=== PATIENT | female | born 1975 | race Caucasian/White ===

== ENCOUNTER → 2017-11-03 00:38 | Outpatient (CLI) | payer OTHER, SELFPAY ==
--- NOTE | 2017-11-03 08:07 | DI.REPORT_ITS ---
SYMPTOM/DIAGNOSIS: ACUTE RIGHT KNEE PAIN, M25.561 MRI RIGHT KNEE: Routine noncontrast examination was performed. There are no priors for comparison. There does appear to be an oblique tear of the posterior horn of the medial meniscus. The lateral meniscus is intact. There is some increased signal seen in the distal anterior cruciate ligament and a partial tear cannot be excluded. The posterior cruciate ligament, lateral collateral ligament, extensor mechanism and medial and lateral retinaculum are intact in addition to the popliteus tendon. There is some fluid seen around the medial collateral ligament suggesting a Grade 1 sprain. The articular cartilage is intact. Marrow signal shows no evidence of an occult fracture or avascular necrosis. There is a small homogeneous round focus in the distal femur. It is homogeneously hyperintense on T-2 and homogeneously hypointense on T2. This may represent a cyst or benign lesion such as an enchondroma cannot be excluded. There is a small amount of fluid in the joint space. No significant popliteal cyst is seen. No soft tissue mass or focal fluid collection is appreciated. IMPRESSION: Tear of the posterior horn of the medial meniscus 2. Question of a partial tear of the anterior cruciate ligament 3. Grade 1 sprain of the MCL.
== END ==
PROVIDERS: PCP Family Medicine; Visit Provider Student in an Organized Health Care Education/Training Program
DX: M25.561 Pain in right knee (principal); S83.241A Other tear of medial meniscus, current injury, right knee, initial encounter; S83.511A Sprain of anterior cruciate ligament of right knee, initial encounter; S83.411A Sprain of medial collateral ligament of right knee, initial encounter
CPT/HCPCS: 73721

== ENCOUNTER 2017-12-23 09:35 | Outpatient (CLI) | payer OTHER, SELFPAY ==
[2017-12-23 12:26] LABS: Abs Immature Grans 0.01 k/cumm (0.0-0.09); Absolute Basophil Count 0.04 k/cumm (0.0-0.2); Absolute Eosinophil Count 0.07 k/cumm (0.0-0.7); Absolute Lymphocyte Count 1.34 k/cumm (1.2-3.4); Absolute Monocyte Count 0.46 k/cumm (0.11-0.7); Absolute Neutrophil Count 2.43 k/cumm (1.2-6.7); Basophils % 0.9; Eosinophils % 1.6; HGB 14.4 g/dL (12.0-15.5); Immature Grans % 0.2; Lymphocytes % 30.8; Mean Corp. HGB Concentration 33.5 g/dL (32.0-36.0); Mean Corpuscular Hemoglobin 32.4 pg (27.0-33.0); Mean Corpuscular Volume 96.6 fL (80-95); Monocytes % 10.6; Neutrophils % 55.9; Platelet Count 275 x1000/uL (130-400); RBC 4.45 m/cumm (4.00-5.20); RBC Distribution Width 12.2 % (11.7-14.6); White Blood Cell Count 4.35 k/cumm (4.4-10.8)
[2017-12-23 14:18] LABS: Iron 94 ug/dL (50-175); Total Iron Binding Capacity 396 ug/dL (250-450); Transferrin Sat 24 % (15-50)
[2017-12-23 14:30] LABS: Ferritin 36 ng/mL (8-388)
== END 2017-12-23 09:55 ==
PROVIDERS: PCP Family Medicine; Visit Provider Internal Medicine Rheumatology
DX: D50.9 Iron deficiency anemia, unspecified (principal)
CPT/HCPCS: 36415; 82728; 83540; 83550; 85025

== ENCOUNTER 2018-01-16 07:45 | Day surgery (SDC) | payer OTHER, SELFPAY ==
[2018-01-16 08:10] VITALS: BP 144/74; PULSE 84; RESP 18; TEMP 37.4; O2SAT 99
[2018-01-16] MEDS: Lactated Ringers 1,000 ML 30 ML IV (08:19)
--- NOTE | 2018-01-16 09:04 | COLE_ITS ---
Date of service: 01/16/18 Time of Service: 09:03 Colonoscopy Report Date of procedure: 01/16/18 Pre-op diagnosis general: Personal history of colon polyps Post-op diagnosis procedure note: other (Normal colon to the cecum) Procedure: Colonoscopy to the cecum Surgeon: Marlon Selby Anesthesia proc note operative: MAC (Harpreet Penn CRNA; ASA 2, Mallampati class II) Estimated blood loss (mL): 0 Pathology: none sent Complications: None Disposition: same day Indications: 43-year-old female presenting for colorectal cancer screening with a personal history of colon polyps. She has been asymptomatic since her last colonoscopy. A sessile serrated adenoma was found on her last colonoscopy was recommended she follow-up in 3 years, but has delayed that until now. The colonoscopy procedure was reviewed with her, and all the risks discussed. All her questions were answered to her satisfaction, and consent was obtained to proceed with colonoscopy. Prep: Miralax/Dulcolax (Prep quality good) Findings: In examining the colon from cecum to anus, no abnormalities were noted Procedure Description: The patient was seen in the day surgery waiting area. Her identification was confirmed, and procedure check. She was then brought to the procedure room. Monitoring for telemetry, blood pressure, oxygen saturation, and end tidal CO2 monitoring were applied. An appropriate time out was performed to confirm, identification, allergies, medication, procedure, was performed. Sedation was titrated for affect by the ADVANCED MANUFACTURING VICE PRESIDENT; Once adequate sedation was achieved, I performed a inspection of the external perineum, and a digitial rectal examination. No significant external abnormalities were noted. On digital rectal examination, there was no blood, no masses, good rectal tone. I advanced the colonoscope from the anus to the cecum under direct visualization. The cecum was identified by the ileal-cecal valve, and the appendiceal orifice. The scope was then withdrawn in circumferential manner from the cecum to the rectum. No abnormalites were noted in the colon. The scope was then withdrawn into the rectum, and retroflexed. No abnormalities were noted of the rectum or anorectal junction. The scope was then withdrawn, terminating the procedure. There were no complications during the procedure, and the patient tolerated the procedure well. She was returned to the day surgery recovery area in good condition. Plan: Will continue with routine screening for colorectal cancer according to current consensus guidelines, which is currently 10 years.
--- NOTE | 2018-01-16 09:52 | PDOC.DSDIS_ITS ---
Discharge Plan Disposition Patient Disposition: HOME Condition: Good Discharge Details Reason For Visit: Personal history of colon polyps Attending Provider: Marlon Selby Primary Care Provider: Ky Hester Home Meds and New Rx's Prescriptions: Continue bisacodyl [Dulcolax (bisacodyl)] 5 mg tablet,delayed release (DR/EC) 10 mg PO BID Qty: 4 RF: 0 polyethylene glycol 3350 [Miralax] 17 gram/dose powder 255 gm PO ONCE Qty: 255 RF: 0 ergocalciferol (vitamin D2) 400 UNIT tablet 2 tab PO PM RF: 0 esomeprazole magnesium [Nexium] 40 MG capsule,delayed release(DR/EC) 1 cap PO DAILY Qty: 90 RF: 4 ergocalciferol (vitamin D2) 50,000 UNIT capsule 1 cap PO QOWK Qty: 6 RF: 4 [id number]-tpivgcenvzwld-rojnuuhh [Excedrin Migraine] 1 EACH tablet 2 tab PO BID PRN RF: 0 folic acid-vit B6-vit B12 [Folbic] 1 EACH tablet 1 tab-cap PO DAILY RF: 0 hydroxychloroquine [Plaquenil] 200 MG tablet 400 mg PO DAILY Qty: 180 RF: 3 bupropion HCl [Wellbutrin XL] 300 MG tablet extended release 24 hr 300 mg PO DAILY Qty: 90 RF: 4 cyanocobalamin (vitamin B-12) 1,000 MCG/1 ML solution 1 ml IM MONTHLY Qty: 3 RF: 4 fexofenadine-pseudoephedrine [Tracey-D 24 Hour] 1 EACH tablet extended release 24 hr 1 tab-cap PO DAILY PRNRF: 0 norethindrone acetate 5 MG tablet 5 mg PO DAILY Qty: 90 RF: 4 colesevelam 625 mg tablet 625 mg PO DAILY Qty: 30 RF: 4 hydrocodone-acetaminophen 5-325 mg tablet 1 tab PO Q6H PRN MDD 8 tabs 30 Days Qty: 50 RF: 0 lisdexamfetamine [Vyvanse] 30 mg capsule 30 mg PO DAILY MDD 30 mg 30 Days Qty: 30 RF: 0 promethazine 25 MG tablet 1 tab PO q 6hr prn RF: 0 duloxetine [Cymbalta] 60 MG capsule,delayed release(DR/EC) 90 cap PO DAILY RF: 0 ondansetron 8 mg Tablet,Disintegrating 8 mg PO PRN PRNRF: 0 magnesium 250 mg Tablet 500 mg PO DAILY RF: 0 Discharge Instructions Instructions: Colonoscopy (DC) Activity:: Activity as Tolerated Diet:: As Tolerated Discharge Orders Discharge Orders: Discharge Order (Routine); Ordered 01/16/18 Ordered By: Marlon Selby DS: Diagnosis Discharge Diagnosis (1) Personal history of colonic polyps: Start date: 01/16/18 Start time: 09:51 Status: Acute Asessment and Plan: Colonoscopy performed: Colonoscopy Report Date of procedure: 01/16/18 Pre-op diagnosis general: Personal history of colon polyps Post-op diagnosis procedure note: other (Normal colon to the cecum) Procedure: Colonoscopy to the cecum Surgeon: Marlon Selby Anesthesia proc note operative: MAC (Harpreet Penn CRNA; ASA 2, Mallampati class II) Estimated blood loss (mL): 0 Pathology: none sent Complications: None Disposition: same day Indications: 43-year-old female presenting for colorectal cancer screening with a personal history of colon polyps. She has been asymptomatic since her last colonoscopy. A sessile serrated adenoma was found on her last colonoscopy was recommended she follow-up in 3 years, but has delayed that until now. The colonoscopy procedure was reviewed with her, and all the risks discussed. All her questions were answered to her satisfaction, and consent was obtained to proceed with colonoscopy. Prep: Miralax/Dulcolax (Prep quality good) Findings: In examining the colon from cecum to anus, no abnormalities were noted Procedure Description: The patient was seen in the day surgery waiting area. Her identification was confirmed, and procedure check. She was then brought to the procedure room. Monitoring for telemetry, blood pressure, oxygen saturation, and end tidal CO2 monitoring were applied. An appropriate time out was performed to confirm, identification, allergies, medication, procedure, was performed. Sedation was titrated for affect by the BRICKLAYER PAVING BRICK; Once adequate sedation was achieved, I performed a inspection of the external perineum, and a digitial rectal examination. No significant external abnormalities were noted. On digital rectal examination, there was no blood, no masses, good rectal tone. I advanced the colonoscope from the anus to the cecum under direct visualization. The cecum was identified by the ileal-cecal valve, and the appendiceal orifice. The scope was then withdrawn in circumferential manner from the cecum to the rectum. No abnormalites were noted in the colon. The scope was then withdrawn into the rectum, and retroflexed. No abnormalities were noted of the rectum or anorectal junction. The scope was then withdrawn, terminating the procedure. There were no complications during the procedure, and the patient tolerated the procedure well. She was returned to the day surgery recovery area in good condition. Plan: Will continue with routine screening for colorectal cancer according to current consensus guidelines, which is currently 10 years.
[2018-01-16 10:15] VITALS: BP 111/71; PULSE 73; RESP 16; TEMP 36.8; O2SAT 98
== END 2018-01-16 10:50 | disposition home or self-care (01) ==
PROVIDERS: PCP Family Medicine; Visit Provider Surgery
PROC: 0DJD8ZZ Inspection of Lower Intestinal Tract, Via Natural or Artificial Opening Endoscopic (ICD-10-PCS; CPT 45378; principal; 2018-01-16 09:30)
DX: Z12.11 Encounter for screening for malignant neoplasm of colon (principal); Z86.010 Personal history of colon polyps
CPT/HCPCS: 45378; 81025; J2250; J3010

== ENCOUNTER 2018-03-20 02:38 | Outpatient (CLI) | payer OTHER, SELFPAY | END 2018-03-20 02:58 | PROVIDERS: PCP Family Medicine; Visit Provider Family Medicine | DX: I48.91 Unspecified atrial fibrillation (principal) | CPT/HCPCS: 93225 ==

== ENCOUNTER 2018-03-23 14:46 | Outpatient (CLI) | payer OTHER, SELFPAY ==
--- NOTE | 2018-03-26 06:42 | HOLTER_ITS ---
Date of Dictation: March 25, 2018 Study Indication: Atrial fibrillation. Requesting Provider: Ky Hester M.D. Findings: The patient was monitored for 2 days and 1 hour. The baseline rhythm was sinus rhythm. Average heart rate 76 bpm, range 67-134 bpm. No PVCs. No ventricular tachycardia. There were 13 PACs. No atrial tachycardias. No pauses >3 seconds. No high-degree heart block. No patient events. Final Interpretation: Normal study.
== END 2018-03-23 15:06 ==
PROVIDERS: PCP Family Medicine; Visit Provider Family Medicine
DX: I48.91 Unspecified atrial fibrillation (principal)
CPT/HCPCS: 93226

== ENCOUNTER 2018-04-23 16:40 | Outpatient (CLI) | payer OTHER, SELFPAY ==
[2018-04-23 19:25] LABS: Vitamin B12 > 2000 pg/mL (193-986)
== END 2018-04-23 17:00 ==
PROVIDERS: PCP Family Medicine; Visit Provider Family Medicine
DX: R20.2 Paresthesia of skin (principal)
CPT/HCPCS: 36415; 82607

== ENCOUNTER 2018-06-12 13:51 | Outpatient (CLI) | payer OTHER, SELFPAY ==
[2018-06-12 15:04] LABS: Abs Immature Grans 0.01 k/cumm (0.0-0.09); Absolute Basophil Count 0.02 k/cumm (0.0-0.2); Absolute Eosinophil Count 0.18 k/cumm (0.0-0.7); Absolute Lymphocyte Count 1.56 k/cumm (1.2-3.4); Absolute Monocyte Count 0.54 k/cumm (0.11-0.7); Absolute Neutrophil Count 3.54 k/cumm (1.2-6.7); Basophils % 0.3; Eosinophils % 3.1; HCT 40.7 % (36.0-46.0); HGB 13.6 g/dL (12.0-15.5); Immature Grans % 0.2; Lymphocytes % 26.7; Mean Corp. HGB Concentration 33.4 g/dL (32.0-36.0); Mean Corpuscular Hemoglobin 31.6 pg (27.0-33.0); Mean Corpuscular Volume 94.7 fL (80-95); Mean Platelet Volume 10.1 fL (8.0-11.0); Monocytes % 9.2; Neutrophils % 60.5; Platelet Count 328 x1000/uL (130-400); RBC Distribution Width 12.5 % (11.7-14.6); White Blood Cell Count 5.85 k/cumm (4.4-10.8)
[2018-06-12 16:14] LABS: Iron 82 ug/dL (50-175); Total Iron Binding Capacity 359 ug/dL (250-450); Transferrin Sat 23 % (15-50)
[2018-06-12 16:40] LABS: ALT 26 U/L (12-78); AST 20 U/L (15-37); Albumin 3.5 g/dL (3.4-5.0); Alkaline Phosphatase 86 U/L (46-116); Anion Gap 12.6 mmol/L (3-11); BUN 11 mg/dL (7-18); Bilirubin, Total 0.3 mg/dL (0.2-1.0); CO2 24.4 mmol/L (21.0-32.0); CREATININE 0.83 mg/dL (0.55-1.02); Calcium 8.5 mg/dL (8.5-10.1); Chloride 103 mmol/L (98-107); Ferritin 40 ng/mL (8-388); Glucose 116 mg/dL (70-100); Potassium 3.5 mmol/L (3.5-5.1); Sodium 140 mmol/L (136-145); Total Protein 7.3 g/dL (6.4-8.2); Vitamin B12 1091 pg/mL (193-986)
[2018-06-15 06:42] LABS: Vitamin D 25 Total 16.6 ng/ml (30-100)
== END 2018-06-12 14:11 ==
PROVIDERS: PCP Family Medicine; Visit Provider Internal Medicine Rheumatology
DX: M32.9 Systemic lupus erythematosus, unspecified (principal); D50.8 Other iron deficiency anemias; E55.9 Vitamin D deficiency, unspecified; E53.9 Vitamin B deficiency, unspecified
CPT/HCPCS: 36415; 80053; 82306; 82607; 82728; 83540; 83550; 85025

== ENCOUNTER 2018-09-02 15:10 | Outpatient (CLI) | payer OTHER, SELFPAY ==
--- NOTE | 2018-09-02 15:45 | DI.RAD_ITS ---
SYMPTOM/DIAGNOSIS: SI JOINT PAIN, CHRONIC, M53.3, SACROCOCCYEAL DISORDER SACROILIAC JOINTS: Multiple images were obtained. There is mild sclerosis around the left sacroiliac joint. No ankylosis is seen. No erosive changes are present. The right sacroiliac joint appears grossly unremarkable without erosion or ankylosis. The bones are intact and normally mineralized. IMPRESSION: Mild sclerosis about the left sacroiliac joint. This may represent sacroiliitis.
== END 2018-09-02 15:30 ==
PROVIDERS: PCP Family Medicine; Visit Provider Family Medicine
DX: G89.29 Other chronic pain (principal); M53.3 Sacrococcygeal disorders, not elsewhere classified
CPT/HCPCS: 72202

== ENCOUNTER 2018-10-14 16:30 | Outpatient (REF) | payer OTHER, SELFPAY ==
--- NOTE | 2018-10-14 14:30 | PAPFT_PTH ---
PATIENT: Ashley Cedeno LOC: [facility] U#:[id number] AGE/SX: 43/F ROOM: RE10/14/[address]: Leslie Ospina MD : [id number] BED: DIS: 10/14/2018 SPEC #: [id number] RECD: 10/14/18 16:51 STATUS: JOSE RELeanna #: [id number] LESLIE: 10/14/18 14:[address]: Leslie Ospina DEPT: [facility] Cytology RECD BY: Ila Mandel ENTERED: 10/14/18 16:52 SP TYPE: PAPFT OTHR DR: Ky Hester MD Tissues: 1 - CX/ENDOCX FOR PAP SMEARS Procedures: PAP THIN PREP/UVM Screening HPV DNA PROBE Comments: [id number]
== END 2018-10-14 16:50 ==
LOC: LBN 16:30
PROVIDERS: PCP Family Medicine; Visit Provider Obstetrics & Gynecology
DX: Z12.4 Encounter for screening for malignant neoplasm of cervix (principal); Z11.51 Encounter for screening for human papillomavirus (HPV)
CPT/HCPCS: 88142; 87624

== ENCOUNTER 2018-10-28 01:07 | Outpatient (CLI) | payer OTHER, SELFPAY ==
--- NOTE | 2018-10-28 11:30 | DI.MAMMO_ITS ---
SYMPTOMS/DIAGNOSIS: SCREENING, Z12.31 MAMMOGRAMS: Mammograms were interpreted according to the usual protocol including computer analysis with CAD system, tomosynthesis and C view imaging. The breast tissue is of moderate radiodensity. There is no demonstrated mass. There are no suspicious calcifications. SUMMARY: No evidence of malignancy, category 1. Yearly screening mammography is recommended. Breast density category B. MQSA ASSESSMENT OF FINDINGS: Negative. Category 1. Patient will receive a letter notifying them of these results. BI-RADS category B. There are scattered areas of fibroglandular density.
== END 2018-10-28 01:27 ==
PROVIDERS: PCP Family Medicine; Visit Provider Obstetrics & Gynecology
DX: Z12.31 Encounter for screening mammogram for malignant neoplasm of breast (principal)
CPT/HCPCS: 77063; 77067

== ENCOUNTER 2018-11-17 13:08 | Emergency (ER) | payer OTHER, SELFPAY ==
[2018-11-17 13:13] VITALS: BP 161/101; PULSE 94; RESP 18; TEMP 37.3; O2SAT 98
[2018-11-17 13:41] LABS: Absolute Basophil Count 0.01 k/cumm (0.0-0.2); Absolute Eosinophil Count 0.06 k/cumm (0.0-0.7); Absolute Monocyte Count 0.35 k/cumm (0.11-0.7); Absolute Neutrophil Count 4.16 k/cumm (1.2-6.7); Basophils % 0.2; HCT 44.8 % (36.0-46.0); HGB 14.6 g/dL (12.0-15.5); Lymphocytes % 20.8; Mean Corp. HGB Concentration 32.6 g/dL (32.0-36.0); Mean Corpuscular Hemoglobin 31.5 pg (27.0-33.0); Mean Corpuscular Volume 96.8 fL (80-95); Mean Platelet Volume 9.7 fL (8.0-11.0); Monocytes % 6.1; Neutrophils % 71.9; Platelet Count 357 x1000/uL (130-400); RBC 4.63 m/cumm (4.00-5.20); RBC Distribution Width 12.3 % (11.7-14.6); White Blood Cell Count 5.78 k/cumm (4.4-10.8)
--- NOTE | 2018-11-17 13:44 | DI.CT_ITS ---
SYMPTOMS/DIAGNOSIS: ABDOMINAL PAIN, RIGHT UPPER QUADRANT ABDOMINAL AND PELVIC CT: CT examination of the abdomen and pelvis was performed with a bolus infusion of 100 cc of Omnipaque 350. Note is made of a 5 mm pleural-based left lower lobe intrapulmonary nodule, unchanged from 06/02/17. Liver and spleen are unremarkable in appearance. Gallbladder has been surgically removed. No biliary dilatation seen. The pancreas appears normal. Adrenals and kidneys are unremarkable in appearance. Abdominal aorta is of normal diameter. No major vascular abnormality seen. No abdominal or pelvic adenopathy. CONSTRUCTION SECRETARY structures appear intact. Appendix is not specifically visualized, but there is no evidence of appendicitis or diverticulitis. No evidence of bowel obstruction. CONCLUSION: No evidence of acute intraabdominal process.
[2018-11-17 13:59] LABS: ALT 25 U/L (12-78); AST 10 U/L (15-37); Albumin 3.6 g/dL (3.4-5.0); Alkaline Phosphatase 73 U/L (46-116); Anion Gap 10.7 mmol/L (3-11); BUN 10 mg/dL (7-18); Bilirubin, Total 0.4 mg/dL (0.2-1.0); CO2 24.3 mmol/L (21.0-32.0); CREATININE 1.03 mg/dL (0.55-1.02); Calcium 8.8 mg/dL (8.5-10.1); Chloride 106 mmol/L (98-107); Estimated GFR 58.48 (mL/min/1.73m2); Glucose 101 mg/dL (70-100); Lipase 108 U/L (73-393); Potassium 3.6 mmol/L (3.5-5.1); Sodium 141 mmol/L (136-145); Total Protein 8.3 g/dL (6.4-8.2)
--- NOTE | 2018-11-17 14:06 | ED.GENADUL_ITS ---
Discharge Plan Disposition Patient Disposition: HOME Discharge Details Chief Complaint: Abd Prob Primary Care Provider: Ky Hester ED Provider: Guicho Graff Home Meds and New Rx's Prescriptions: New dicyclomine 10 mg capsule 10 mg PO TID PRN (Reason: pain) Qty: 10 RF: 0 Continued prednisone 5 mg tablet 5 mg PO DAILY PRNRF: 0 Flovent HFA 110 mcg/actuation HFA aerosol inhaler 2 puff IH BID Qty: 12 RF: 3 hydrocodone-acetaminophen 5-325 mg tablet 1 tab PO Q6H MDD 4 PRN (Reason: pain) Qty: 50 RF: 0 duloxetine 30 mg capsule,delayed release(DR/EC) 30 mg PO DAILY PRNRF: 0 fluconazole [Diflucan] 150 mg tablet 150 mg PO ONCE PRNRF: 0 ergocalciferol (vitamin D2) 400 UNIT tablet 2 tab PO PM RF: 0 ergocalciferol (vitamin D2) 50,000 UNIT capsule 1 cap PO QOWK Qty: 6 RF: 4 Excedrin Migraine 1 EACH tablet 2 tab PO BID PRN RF: 0 Folbic 1 EACH tablet 1 tab-cap PO DAILY RF: 0 hydroxychloroquine [Plaquenil] 200 MG tablet 400 mg PO DAILY Qty: 180 RF: 3 cyanocobalamin (vitamin B-12) 1,000 MCG/1 ML solution 1 ml IM MONTHLY Qty: 3 RF: 4 Tracey-D 24 Hour 1 EACH tablet extended release 24 hr 1 tab-cap PO DAILY PRNRF: 0 bupropion HCl [Wellbutrin XL] 300 mg tablet extended release 24 hr 300 mg PO DAILY Qty: 90 RF: 4 duloxetine [Cymbalta] 60 mg capsule,delayed release(DR/EC) 60 mg PO DAILY Qty: 90 RF: 4 colesevelam 625 mg tablet 625 mg PO DAILY Qty: 90 RF: 4 norethindrone acetate 5 mg tablet 5 mg PO DAILY Qty: 30 RF: 0 esomeprazole magnesium [Nexium] 40 mg capsule,delayed release(DR/EC) 40 mg PO DAILY Qty: 90 RF: 3 lisdexamfetamine 30 mg capsule 30 mg PO DAILY MDD 30 Qty: 30 RF: 0 promethazine 25 MG tablet 1 tab PO q 6hr prn RF: 0 magnesium 250 mg Tablet 400 mg PO DAILY RF: 0 ondansetron 8 mg Tablet,Disintegrating 8 mg PO PRN PRNQty: 8 RF: 0 Discharge Data Discharge Date/Time-TO BE ENTERED AT DEPARTURE: 11/17/18 15:36 Medical Decision Making Patient presenting to the emergency department with chief complaint of right upper quadrant pain. Patient states this been going on last 3 days and she followed up with her primary care provider and he had her come to the emergency department. Patient states previous cholecystectomy. Patient does state some loose stools but otherwise denies any constipation, does state some nausea and only one episode of vomiting. Physical exam shows soft abdomen with tenderness in the epigastrium and right upper quadrant otherwise no tenderness at McBurney's point no roving sign, no CVA tenderness, otherwise unremarkable exam. Plan to check labs, UA and CT imaging due to abdominal pain. Pending results patient given IV fluids, Zofran, and hydromorphone. Review of labs is an unremarkable CBC with no leukocytosis, nondiagnostic CMP and UA. CT imaging reviewed and shows no acute intra-abdominal process. On my review of CT imaging there is questionable increased stool burden on the right side of the abdomen. Patient denies any constipation but I question if this is some of her area of discomfort. CT does not show any evidence of bowel obstruction no. Patient continued to complain of discomfort so was given Toradol and Bentyl. Return precautions were discussed. After discussion of diagnosis and plan of care patient has no further needs, questions, or concerns and states clear understanding to return to the emergency department for any worsening symptoms. HPI General Mode of arrival: ambulatory . Date/Time Provider Initiated Documentation: 11/17/18 13:21 . Limitations to Documentation: no limitations . Information obtained by: patient and RN notes reviewed . History of Present Illness 43 year old F presents to the emergency department with the chief complaint of Right upper quadrant abdominal pain, described as moderate and similar to prior episodes, with intensity rated at 8. Quality is described as sharp, and is localized to the abdomen. Patient started experiencing this week(s) (3) and it has been colicky. No relieving factors improve symptom(s), No exacerbating factors reported . Patient notes no other symptoms.. Patient did receive the following treatments prior to arrival, none Related Data Home Medications Medication Instructions Recorded Confirmed Excedrin Migraine 2 tab PO BID PRN 07/22/12 11/17/18 ergocalciferol (vitamin D2) 1 cap PO QOWK #6 cap 07/22/12 11/17/18 ergocalciferol (vitamin D2) 2 tab PO PM 07/22/12 11/17/18 Folbic 1 tab-cap PO DAILY tab-cap 06/11/13 11/17/18 promethazine 1 tab PO q 6hr prn 07/06/15 11/17/18 hydroxychloroquine [Plaquenil] 400 mg PO DAILY #180 t 10/20/15 11/17/18 cyanocobalamin (vitamin B-12) 1 ml IM MONTHLY #3 vial 07/03/17 11/17/18 Tracey-D 24 Hour 1 tab-cap PO DAILY PRN tab-cap 08/05/17 11/17/18 magnesium 400 mg PO DAILY 01/16/18 11/17/18 bupropion HCl 300 mg 24 hr tablet, 300 mg PO DAILY #90 tab-cap 02/05/18 11/17/18 extended release duloxetine 60 mg capsule,delayed 60 mg PO DAILY #90 cap 05/04/18 11/17/18 release colesevelam 625 mg tablet 625 mg PO DAILY #90 tab 05/14/18 11/17/18 fluticasone propionate 110 2 puff IH BID #12 gm 07/30/18 11/17/18 mcg/actuation HFA aerosol inhaler hydrocodone 5 mg-acetaminophen 325 1 tab PO Q6H PRN #50 tab MDD 4 09/02/18 11/17/18 mg tablet duloxetine 30 mg capsule,delayed 30 mg PO DAILY PRN cap 09/15/18 11/17/18 release fluconazole 150 mg tablet 150 mg PO ONCE PRN tab 09/15/18 11/17/18 prednisone 5 mg tablet 5 mg PO DAILY PRN 09/15/18 11/17/18 norethindrone acetate 5 mg tablet 5 mg PO DAILY #30 tab 10/08/18 11/17/18 esomeprazole magnesium 40 mg 40 mg PO DAILY #90 cap 10/22/18 11/17/18 capsule,delayed release lisdexamfetamine 30 mg capsule 30 mg PO DAILY #30 cap MDD 30 10/30/18 11/17/18 dicyclomine 10 mg PO TID PRN #10 cap 11/17/18 ondansetron 8 mg PO PRN PRN #8 tab 11/17/18 Previous Rx's Medication Instructions Recorded cyanocobalamin (vitamin B-12) 1 ml IM MONTHLY #3 vial 07/03/17 bupropion HCl 300 mg 24 hr tablet, 300 mg PO DAILY #90 tab-cap 02/05/18 extended release duloxetine 60 mg capsule,delayed 60 mg PO DAILY #90 cap 05/04/18 release colesevelam 625 mg tablet 625 mg PO DAILY #90 tab 05/14/18 fluticasone propionate 110 2 puff IH BID #12 gm 07/30/18 mcg/actuation HFA aerosol inhaler hydrocodone 5 mg-acetaminophen 325 1 tab PO Q6H PRN #50 tab MDD 4 09/02/18 mg tablet norethindrone acetate 5 mg tablet 5 mg PO DAILY #30 tab 10/08/18 esomeprazole magnesium 40 mg 40 mg PO DAILY #90 cap 10/22/18 capsule,delayed release lisdexamfetamine 30 mg capsule 30 mg PO DAILY #30 cap MDD 30 10/30/18 dicyclomine 10 mg PO TID PRN #10 cap 11/17/18 ondansetron 8 mg PO PRN PRN #8 tab 11/17/18 Allergies Allergy/AdvReac Type Severity Reaction Status Date / Time Sulfa (Sulfonamide AdvReac Intermediate LUPUS Verified 11/17/18 13:15 Antibiotics) tetracycline AdvReac Mild vomiting Verified 11/17/18 13:15 codeine AdvReac Unknown VOMITING Verified 11/17/18 13:15 Opioids - Morphine Analogues AdvReac Unknown TACHYCARDIA Verified 11/17/18 13:15 General Stated Complaint: Abd Prob TREVA: 3 Review of Systems Constitutional Denies chills, Denies fever(s) and Reports poor appetite Cardiovascular Denies chest pain and Denies dyspnea Respiratory Denies cough and Denies dyspnea Gastrointestinal Reports as per HPI, Reports abdominal pain, Denies melena, Denies change in bowel habits, Denies constipation, Denies diarrhea, Reports nausea and Reports vomiting Genitourinary Denies hematuria and Denies dysuria Integumentary/Breasts Denies rash PFSH Medical History Abnormal colonoscopy (Acute 12/07/10) Arthritis (Chronic) Asthma (Chronic) 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) Depressive disorder (Chronic) Endometriosis determined by laparoscopy History of endometrial biopsy (Resolved) Sessile colonic polyp (Acute 12/07/10) SLE (systemic lupus erythematosus) Surgical History Cholecystectomy (12/11/11) Endometrial Biopsy (06/01/14) H/O colonoscopy (Resolved 01/16/18) History of esophagogastroduodenoscopy (EGD) (Chronic 12/07/10) Status post cholecystectomy (Resolved) Family History FAMILY HX Heart disease Mother Endometriosis Sister Endometriosis Grandmother SLE (systemic lupus erythematosus) Social History Smoking/Tobacco Use Status: Never Alcohol Intake: current Alcohol Intake frequency: a few times a week Drug use: Never Substance use type: does not use Do you feel safe at home: Yes Do you feel safe in your relationship?: Yes Exam Const General: cooperative Orientation: alert, awake and oriented x3 Resp Effort & Inspection: normal respiratory effort and able to speak in complete sentences Auscultation: clear to auscultation bilaterally Cardio Rate: regular rate Rhythm: regular rhythm Heart Sounds: S1 normal and S2 normal GI Palpation: soft, no hepatosplenomegaly, not firm, no guarding, no masses, no pulsatile masses, not rigid, no splenomegaly and tender in the epigastrum and in the RUQ; not at McBurney's point and Rovsing's sign negative Auscultation: normal bowel sounds Back/Spine/Pelvis Back: no CVA tenderness Neuro General: alert, awake, oriented x3, gait normal and moves all extremities Course Vital Signs Temperature 37.3 C 11/17/18 13:13 Pulse 94 H 11/17/18 13:13 Respiratory Rate 18 11/17/18 13:13 Blood Pressure 161/101 H 11/17/18 13:13 Pulse Oximetry 98 11/17/18 13:13 Temperature 37.3 C 11/17/18 13:13 Temperature Source Skin 11/17/18 13:13 Pulse 94 H 11/17/18 13:13 Respiratory Rate 18 11/17/18 13:13 Respiratory Effort Non-Labored 11/17/18 13:20 Blood Pressure 161/101 H 11/17/18 13:13 Pulse Oximetry 98 11/17/18 13:13 Oxygen Delivery Method Room Air 11/17/18 13:13 Oxygen Flow Rate 0 11/17/18 13:13 Pain Level 8 11/17/18 13:21 Lab/Test Results Lab/Test Results: Laboratory Tests Range/Units 11/17/18 13:30 WBC (4.4-10.8) k/cumm 5.78 RBC (4.00-5.20) m/cumm 4.63 Hgb (12.0-15.5) g/dL 14.6 Hct (36.0-46.0) % 44.8 MCV (80-95) fL 96.8 H MCH (27.0-33.0) pg 31.5 MCHC (32.0-36.0) g/dL 32.6 RDW (11.7-14.6) % 12.3 Plt Count (130-400) x1000/uL 357 MPV (8.0-11.0) fL 9.7 Immature Gran % 0.0 Neutrophils % 71.9 Lymphocytes % 20.8 Monocytes % 6.1 Eosinophils % 1.0 Basophils % 0.2 Absolute Neutrophils (1.2-6.7) k/cumm 4.16 Absolute Lymphocytes (1.2-3.4) k/cumm 1.20 Absolute Monocytes (0.11-0.7) k/cumm 0.35 Absolute Eosinophils (0.0-0.7) k/cumm 0.06 Absolute Basophils (0.0-0.2) k/cumm 0.01
[2018-11-17 14:22] LABS: Bilirubin Negative (Negative); Blood Negative (Negative); Clarity Clear (Clear); Glucose Negative (Negative); Ketones Negative (Negative); Leukocyte Esterase Negative (Negative); Nitrite Negative (Negative); Urobilinogen 0.2 EU/dL (Up TO 0.2)
[2018-11-17] MEDS: Normal Saline 1,000 ML 1000 ML IV (14:24)
[2018-11-17] MEDS: Ondansetron 4 MG/2 ML VIAL IVP (14:26)
[2018-11-17] MEDS: HYDROmorphone 2 MG/ML VIAL 0.5 MG IVP (14:28)
[2018-11-17] MEDS: Omnipaque 350 MG/ML 100 ML BTL IJ (14:38)
[2018-11-17] MEDS: Dicyclomine 20 MG TAB (15:21)
[2018-11-17] MEDS: Ketorolac 30 MG/ML VIAL IVP (15:21)
[2018-11-17 15:24] VITALS: BP 123/81; PULSE 78; RESP 15; TEMP 36.6; O2SAT 99
[2018-11-17 15:33] VITALS: BP 123/81; PULSE 78; RESP 15; TEMP 36.6; O2SAT 99
== END 2018-11-17 15:36 | disposition home or self-care (01) ==
PROVIDERS: Emergency Provider Nurse Practitioner Family; PCP Family Medicine
DX: R10.11 Right upper quadrant pain (principal); R11.2 Nausea with vomiting, unspecified; R19.7 Diarrhea, unspecified
CPT/HCPCS: 36415; 80053; 83690; 96361; 96374; 96375; 99285; 74177; 81003; 85025; 99284; J1885; J2405; J3490

== ENCOUNTER 2018-12-07 12:05 | Day surgery (SDC) | payer OTHER, SELFPAY ==
--- NOTE | 2018-12-07 07:21 | ENDO_ITS ---
Date of service: 12/07/18 Time of Service: 15:09 Endoscopy Report DATE OF PROCEDURE: 12/07/18 PRE-OP DIAGNOSIS: RUQ and Epigastric pain POST-OP DIAGNOSIS: other (Gastritis, pyloric ulcers) PROCEDURE: EGD with bx SURGEON: Alicia Klein ANESTHESIA: other (General/ ASA 2/ Alondra Smith, LATRICE) ESTIMATED BLOOD LOSS: 3 PATHOLOGY: other (Pyloric bx, gastric bx, GE junction bx) COMPLICATIONS: None DISPOSITION: same day INDICATIONS: Mrs. Cedeno is a pleasant 43 year old female seen in the office with RUQ and Epigastric pain. She is status post Cholecystectomy. Risks, benefits and complications have been reviewed. Complications include but are not limited to bleeding, pain, perforation, sore throat, aspiration, and adverse reaction to the medications. Questions were entertained and answered to their satisfaction and they wished to proceed. No guarantees were given or implied. FINDINGS: Mild inflammation of the pylorus, and stomach PROCEDURE DESCRIPTION: After informed consent was obtained the patient was take to the procedure room and placed in a supine position. Monitors were applied and a time out was done. The patients name, date of , procedure type, allergies to medications and metal in their body was reviewed. A bite block was placed and the patient was sedated. Once sedated and comfortable the gastroscope was advanced through the oropharynx which was grossly normal into the esophagus. The proximal and mid- esophagus were normal. In the distal esophagus there was no inflammation noted. The scope was advanced into the stomach and through the pylorus into the 3rd portion of the duodenum. The duodenum was noted to be normal. The scope was retracted back into the stomach and biopsies were done to rule out H. pylori. There were 2 small shallow ulcers on the pylorus. The scope was retro-flexed. The cardia and fundus were noted to be normal. There was no hiatal hernia noted. The scope was retracted back into the esophagus and biopsies were done of the GE junction to rule out Baer's. The Z line was regular. The GE junction was at 40 cm. The scope was removed and the patient was woken up and taken back to [facility] in stable condition. Follow up: 2 weeks
--- NOTE | 2018-12-07 07:23 | PDOC.DSDIS_ITS ---
Discharge Plan Disposition Patient Disposition: HOME Condition: Good Discharge Details Reason For Visit: ABDOMINAL PAIN/ NAUSEA/VOMITTING Attending Provider: Alicia Klein Primary Care Provider: Ky Hester Home Meds and New Rx's Prescriptions: New sucralfate 1 gram tablet 1 gm PO QACHS Qty: 56 RF: 0 Continued prednisone 5 mg tablet 5 mg PO DAILY PRNRF: 0 Flovent HFA 110 mcg/actuation HFA aerosol inhaler 2 puff IH BID Qty: 12 RF: 3 duloxetine 30 mg capsule,delayed release(DR/EC) 30 mg PO DAILY PRNRF: 0 fluconazole [Diflucan] 150 mg tablet 150 mg PO ONCE PRNRF: 0 ergocalciferol (vitamin D2) 400 UNIT tablet 1 tab PO PM RF: 0 ergocalciferol (vitamin D2) 50,000 UNIT capsule 1 cap PO .QWEEK Qty: 6 RF: 4 Excedrin Migraine 1 EACH tablet 2 tab PO BID PRN RF: 0 Folbic 1 EACH tablet 1 tab-cap PO DAILY RF: 0 hydroxychloroquine [Plaquenil] 200 MG tablet 400 mg PO DAILY Qty: 180 RF: 3 cyanocobalamin (vitamin B-12) 1,000 MCG/1 ML solution 1 ml IM MONTHLY Qty: 3 RF: 4 Tracey-D 24 Hour 1 EACH tablet extended release 24 hr 1 tab-cap PO DAILY PRNRF: 0 bupropion HCl [Wellbutrin XL] 300 mg tablet extended release 24 hr 300 mg PO DAILY Qty: 90 RF: 4 duloxetine [Cymbalta] 60 mg capsule,delayed release(DR/EC) 60 mg PO DAILY Qty: 90 RF: 4 colesevelam 625 mg tablet 625 mg PO DAILY Qty: 90 RF: 4 norethindrone acetate 5 mg tablet 5 mg PO DAILY Qty: 30 RF: 0 esomeprazole magnesium [Nexium] 40 mg capsule,delayed release(DR/EC) 40 mg PO DAILY Qty: 90 RF: 3 lisdexamfetamine 30 mg capsule 30 mg PO DAILY MDD 30 Qty: 30 RF: 0 ondansetron 8 mg tablet,disintegrating 8 mg PO PRN PRN (Reason: nausea and vomiting) Qty: 8 RF: 0 hydrocodone-acetaminophen 5-325 mg tablet 1 tab PO Q6H MDD 4 PRN (Reason: pain) Qty: 50 RF: 0 promethazine 25 MG tablet 1 tab PO q 6hr prn RF: 0 magnesium 250 mg Tablet 400 mg PO DAILY RF: 0 Discharge Instructions Additional Instructions: Findings: mild gastritis shallow ulcers of pylorus Follow up: 2 weeks Please call if you develop: fevers >101.5 Nausea or Vomiting Abdominal pain that is not transient [facility] POST ENDOSCOPY INSTRUCTIONS 1. Because there will be medication in your system for the next 24 hours, you may feel a little sleepy. Your coordination will be affected. Therefore: a. Do not drive or operate dangerous equipment for 24 hours. b. Do not drink alcohol beverages for 24 hours (not even beer). c. Plan to go home and rest for the day. 2. Generally there are no restrictions on your activity after a day or so has gone by, but you may feel a bit fatigued for a few days. 3 After you arrive home you may have a light meal and return to a normal diet as you can tolerate it without feeling sick to your stomach. 4. After surgery, you may feel pain or discomfort. This should be only transient, but if it persists please contact your doctor. 5. If there are any questions regarding the findings of your procedure, please feel free to contact your doctor. 6. If you are unable to contact your doctor with a problem, contact the hospital at [phone]. 7. Continue all your regular medications unless directed otherwise. I understand the above instructions and have no questions. Signature of Patient or Responsible Adult Escort Date/Time Name of Responsible Adult Escort Signature of Nurse Date/Time Referrals: Alicia Klein MD [ [facility] STAFF PHYSICIAN] - (2 weeks) Activity:: Activity as Tolerated Diet:: As Tolerated Discharge Orders Discharge Orders: Discharge Order (Routine); Ordered 12/07/18 Ordered By: Alicia Klein DS: Diagnosis Discharge Diagnosis (1) History of esophagogastroduodenoscopy (EGD): Status: Chronic
[2018-12-07 12:15] VITALS: BP 125/94; PULSE 81; RESP 16; TEMP 36.4; O2SAT 99
[2018-12-07] MEDS: Lactated Ringers 1,000 ML 80 ML IV (12:40)
--- NOTE | 2018-12-07 15:11 | STOM_PTH ---
PATIENT: Ashley Cedeno LOC: [facility] U#:[id number] AGE/SX: 43/F ROOM: RE12/07/[address]: Alicia Klein MD : 1975 BED: DIS: 12/07/2018 SPEC #: [id number] RECD: 12/07/18 18:13 STATUS: [facility] #: [id number] LESLIE: 12/07/18 15:[address]: Alicia Klein DEPT: Surgical Specimen RECD BY: Ila Mandel ENTERED: 12/07/18 18:15 SP TYPE: STOMACH OTHR DR: Ky Hester MD Tissues: 1 - STOMACH BIOPSY 2 - STOMACH BIOPSY 3 - ESOPHAGUS BIOPSY Procedures: GROSS AND MICRO LEVEL 4 Comments: [id number]
[2018-12-07 15:46] VITALS: BP 122/86; PULSE 80; RESP 17; TEMP 36.4; O2SAT 100
== END 2018-12-07 16:05 | disposition home or self-care (01) ==
LOC: SUR 12:05
PROVIDERS: PCP Family Medicine; Visit Provider Surgery
PROC: 0DJ68ZZ Inspection of Stomach, Via Natural or Artificial Opening Endoscopic (ICD-10-PCS; CPT 43235; principal; 2018-12-07 13:45)
DX: R10.11 Right upper quadrant pain (principal); R10.13 Epigastric pain; K25.9 Gastric ulcer, unspecified as acute or chronic, without hemorrhage or perforation; K21.0 Gastro-esophageal reflux disease with esophagitis; Z86.010 Personal history of colon polyps
CPT/HCPCS: 43239; 88305

== ENCOUNTER 2019-01-05 14:37 | Outpatient (CLI) | payer OTHER, SELFPAY ==
[2019-01-05 15:36] LABS: Abs Immature Grans 0.01 k/cumm (0.0-0.09); Absolute Basophil Count 0.03 k/cumm (0.0-0.2); Absolute Eosinophil Count 0.08 k/cumm (0.0-0.7); Absolute Lymphocyte Count 1.44 k/cumm (1.2-3.4); Absolute Monocyte Count 0.46 k/cumm (0.11-0.7); Absolute Neutrophil Count 3.29 k/cumm (1.2-6.7); Basophils % 0.6; Eosinophils % 1.5; HCT 40.1 % (36.0-46.0); HGB 13.3 g/dL (12.0-15.5); Immature Grans % 0.2; Lymphocytes % 27.1; Mean Corp. HGB Concentration 33.2 g/dL (32.0-36.0); Mean Corpuscular Hemoglobin 31.9 pg (27.0-33.0); Mean Corpuscular Volume 96.2 fL (80-95); Mean Platelet Volume 9.9 fL (8.0-11.0); Monocytes % 8.7; Neutrophils % 61.9; Platelet Count 336 x1000/uL (130-400); RBC 4.17 m/cumm (4.00-5.20); RBC Distribution Width 11.7 % (11.7-14.6); White Blood Cell Count 5.31 k/cumm (4.4-10.8)
[2019-01-05 15:53] LABS: Iron 82 ug/dL (50-175); Total Iron Binding Capacity 374 ug/dL (250-450); Transferrin Sat 22 % (15-50)
[2019-01-05 15:56] LABS: ALT 28 U/L (14-59); AST 17 U/L (15-37); Albumin 3.4 g/dL (3.4-5.0); Alkaline Phosphatase 78 U/L (46-116); BUN 10 mg/dL (7-18); Bilirubin, Total 0.3 mg/dL (0.2-1.0); CREATININE 1.02 mg/dL (0.55-1.02); Calcium 8.4 mg/dL (8.5-10.1); Chloride 104 mmol/L (98-107); Estimated GFR 59.15 (mL/min/1.73m2); Glucose 101 mg/dL (70-100); Potassium 3.5 mmol/L (3.5-5.1); Sodium 141 mmol/L (136-145); Total Protein 7.2 g/dL (6.4-8.2)
[2019-01-05 16:07] LABS: Ferritin 41 ng/mL (8-388)
[2019-01-07 07:23] LABS: Vitamin D 25 Total 26.3 ng/ml (30-100)
== END 2019-01-05 14:57 ==
PROVIDERS: PCP Family Medicine; Visit Provider Internal Medicine Rheumatology
DX: M32.9 Systemic lupus erythematosus, unspecified (principal); E55.9 Vitamin D deficiency, unspecified; D50.9 Iron deficiency anemia, unspecified
CPT/HCPCS: 36415; 80053; 82306; 82728; 83540; 83550; 85025

== ENCOUNTER 2019-01-06 10:13 | Emergency (ER) | payer OTHER, SELFPAY ==
[2019-01-06 10:19] VITALS: BP 153/67; PULSE 111; RESP 16; TEMP 36.5; O2SAT 100
--- NOTE | 2019-01-06 10:31 | W.ED.GENAD ---
Discharge Plan Disposition Patient Disposition: HOME Condition: Good Discharge Details Chief Complaint: Orthopedic Clinical Impression: Foot sprain Primary Care Provider: Ky Hester ED Provider: Jazlyn Martinez Home Meds and New Rx's Prescriptions: No Action prednisone 5 mg tablet 5 mg PO DAILY PRNRF: 0 Flovent HFA 110 mcg/actuation HFA aerosol inhaler 2 puff IH BID Qty: 12 RF: 3 duloxetine 30 mg capsule,delayed release(DR/EC) 30 mg PO DAILY PRNRF: 0 fluconazole [Diflucan] 150 mg tablet 150 mg PO ONCE PRNRF: 0 ergocalciferol (vitamin D2) 400 UNIT tablet 1 tab PO PM RF: 0 ergocalciferol (vitamin D2) 50,000 UNIT capsule 1 cap PO .QWEEK Qty: 6 RF: 4 Excedrin Migraine 1 EACH tablet 2 tab PO BID PRN RF: 0 Folbic 1 EACH tablet 1 tab-cap PO DAILY RF: 0 hydroxychloroquine [Plaquenil] 200 MG tablet 400 mg PO DAILY Qty: 180 RF: 3 cyanocobalamin (vitamin B-12) 1,000 MCG/1 ML solution 1 ml IM MONTHLY Qty: 3 RF: 4 Tracey-D 24 Hour 1 EACH tablet extended release 24 hr 1 tab-cap PO DAILY PRNRF: 0 bupropion HCl [Wellbutrin XL] 300 mg tablet extended release 24 hr 300 mg PO DAILY Qty: 90 RF: 4 duloxetine [Cymbalta] 60 mg capsule,delayed release(DR/EC) 60 mg PO DAILY Qty: 90 RF: 4 colesevelam 625 mg tablet 625 mg PO DAILY Qty: 90 RF: 4 norethindrone acetate 5 mg tablet 5 mg PO DAILY Qty: 30 RF: 0 esomeprazole magnesium [Nexium] 40 mg capsule,delayed release(DR/EC) 40 mg PO DAILY Qty: 90 RF: 3 ondansetron 8 mg tablet,disintegrating 8 mg PO PRN PRN (Reason: nausea and vomiting) Qty: 8 RF: 0 lisdexamfetamine 30 mg capsule 30 mg PO DAILY MDD 30 Qty: 30 RF: 0 hydrocodone-acetaminophen 5-325 mg tablet 1 tab PO Q6H MDD 4 PRN (Reason: pain) Qty: 50 RF: 0 promethazine 25 MG tablet 1 tab PO q 6hr prn RF: 0 magnesium 250 mg Tablet 400 mg PO DAILY RF: 0 sucralfate 1 gram tablet 1 gm PO QACHS Qty: 56 RF: 0 Discharge Instructions Instructions: Foot Sprain (ED) Additional Instructions: Rest. Activities as tolerated. Elevate injury to prevent swelling. Use splinting devices as discussed for one week. Ice to the area of discomfort for 15 min. 3-5 times daily. Motrin every 8 hours with food or Tylenol every 6 hours for soreness if needed over the counter for comfort. Followup with orthopedic doctor as discussed if not improving in one week. Return for any worsening or concerns sooner if needed. Referrals: Junaid Mishra MD [ [facility] STAFF PHYSICIAN] - Medical Decision Making Is a very pleasant 43-year-old woman who tripped and fell down one step outside of her brother's house when leaving last night. Ultimately rolled her ankle and foot. Presents complaining of lateral ankle pain as well as dorsal foot pain specifically the fifth metatarsal. Patient complaining of limping gait and persistent pain with ambulation. X-ray ordered Offered Motrin or Tylenol and declines at this time X-rays ultimately unremarkable. Likely ankle and foot sprain. Rice encouraged. Patient's preference is lace up ankle splint and postoperative shoe. Would prefer to defer crutches. The patient was stable and requested discharge. Prior to discharge, my usual and customary return precautions were reviewed with the patient - this included follow-up instructions and reasons to return to the Emergency Department if conditions worsens, does not improve as expected, or other new concerns arise. HPI General Date/Time Provider Initiated Documentation: 01/06/19 10:15. HPI Narrative: Patient presents for complaints of left foot pain after a fall which occurred yesterday. She fell off a tall front step at her brother's house yesterday. Patient reports rolled her ankle and foot. Patient reports foot and mild ankle pain since that time. No open wounds. Pain with ambulation persistence. No numbness, tingling or weakness. Patient indicates the lateral foot as her prominent site of discomfort. No other sites of pain or concerns. Related Data Home Medications Medication Instructions Recorded Confirmed Excedrin Migraine 2 tab PO BID PRN 07/22/12 01/06/19 ergocalciferol (vitamin D2) 1 cap PO .QWEEK #6 cap 07/22/12 01/06/19 ergocalciferol (vitamin D2) 1 tab PO PM 07/22/12 01/06/19 Folbic 1 tab-cap PO DAILY tab-cap 06/11/13 01/06/19 promethazine 1 tab PO q 6hr prn 07/06/15 01/06/19 hydroxychloroquine [Plaquenil] 400 mg PO DAILY #180 t 10/20/15 01/06/19 cyanocobalamin (vitamin B-12) 1 ml IM MONTHLY #3 vial 07/03/17 01/06/19 Tracey-D 24 Hour 1 tab-cap PO DAILY PRN tab-cap 08/05/17 01/06/19 magnesium 400 mg PO DAILY 01/16/18 01/06/19 bupropion HCl 300 mg 24 hr tablet, 300 mg PO DAILY #90 tab-cap 02/05/18 01/06/19 extended release duloxetine 60 mg capsule,delayed 60 mg PO DAILY #90 cap 05/04/18 01/06/19 release colesevelam 625 mg tablet 625 mg PO DAILY #90 tab 05/14/18 01/06/19 fluticasone propionate 110 2 puff IH BID #12 gm 07/30/18 01/06/19 mcg/actuation HFA aerosol inhaler duloxetine 30 mg capsule,delayed 30 mg PO DAILY PRN cap 09/15/18 01/06/19 release fluconazole 150 mg tablet 150 mg PO ONCE PRN tab 09/15/18 01/06/19 prednisone 5 mg tablet 5 mg PO DAILY PRN 09/15/18 01/06/19 norethindrone acetate 5 mg tablet 5 mg PO DAILY #30 tab 10/08/18 01/06/19 esomeprazole magnesium 40 mg 40 mg PO DAILY #90 cap 10/22/18 01/06/19 capsule,delayed release ondansetron 8 mg disintegrating 8 mg PO PRN PRN #8 tab 11/24/18 01/06/19 tablet lisdexamfetamine 30 mg capsule 30 mg PO DAILY #30 cap MDD 30 12/07/18 01/06/19 sucralfate 1 gm PO QACHS #56 tab 12/07/18 01/06/19 hydrocodone 5 mg-acetaminophen 325 1 tab PO Q6H PRN #50 tab MDD 4 12/22/18 01/06/19 mg tablet Previous Rx's Medication Instructions Recorded cyanocobalamin (vitamin B-12) 1 ml IM MONTHLY #3 vial 07/03/17 bupropion HCl 300 mg 24 hr tablet, 300 mg PO DAILY #90 tab-cap 02/05/18 extended release duloxetine 60 mg capsule,delayed 60 mg PO DAILY #90 cap 05/04/18 release colesevelam 625 mg tablet 625 mg PO DAILY #90 tab 05/14/18 fluticasone propionate 110 2 puff IH BID #12 gm 07/30/18 mcg/actuation HFA aerosol inhaler norethindrone acetate 5 mg tablet 5 mg PO DAILY #30 tab 10/08/18 esomeprazole magnesium 40 mg 40 mg PO DAILY #90 cap 10/22/18 capsule,delayed release ondansetron 8 mg disintegrating 8 mg PO PRN PRN #8 tab 11/24/18 tablet lisdexamfetamine 30 mg capsule 30 mg PO DAILY #30 cap MDD 30 12/07/18 sucralfate 1 gm PO QACHS #56 tab 12/07/18 hydrocodone 5 mg-acetaminophen 325 1 tab PO Q6H PRN #50 tab MDD 4 12/22/18 mg tablet Allergies Allergy/AdvReac Type Severity Reaction Status Date / Time Sulfa (Sulfonamide AdvReac Intermediate LUPUS Verified 01/06/19 10:22 Antibiotics) tetracycline AdvReac Mild vomiting Verified 01/06/19 10:22 codeine AdvReac Unknown VOMITING Verified 01/06/19 10:22 Opioids - Morphine Analogues AdvReac Unknown TACHYCARDIA Verified 01/06/19 10:22 General Stated Complaint: Orthopedic TREVA: 4 Review of Systems Review of Systems ROS Unobtainable: All systems reviewed & are unremarkable except as noted in HPI and below ENT Ears, Nose, Mouth, and Throat: Denies neck pain Musculoskeletal Musculoskeletal: Reports abnormal gait, Denies back pain and Denies neck pain Integumentary/Breasts Skin/Breast: Denies wounds Neurologic Neurologic: Reports abnormal gait [facility] Medical History Abnormal colonoscopy (Acute 12/07/10) sessile serrated adenoma Arthritis (Chronic) Asthma (Chronic) 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) Depressive disorder (Chronic) Endometriosis determined by laparoscopy History of endometrial biopsy (Resolved) Sessile colonic polyp (Acute 12/07/10) Dr Selby SLE (systemic lupus erythematosus) Surgical History Cholecystectomy (12/11/11) Endometrial Biopsy (06/01/14) H/O colonoscopy (Resolved 01/16/18) 01/16/18 Dr Selby, neg/no biopsies, repeat in 5 years due to family history of colorectal cancer. History of arthroscopic knee surgery (Chronic) History of esophagogastroduodenoscopy (EGD) (Chronic 12/07/18) Dr Selby, biopsies with no specific pathological features Status post cholecystectomy (Resolved) Family History FAMILY HX Heart disease Mother Endometriosis hyst at 26 Sister Endometriosis diagnosed by and sxs Grandmother SLE (systemic lupus erythematosus) unknown age, but had renal dz Social History Smoking/Tobacco Use Status: Never Alcohol Intake: current Alcohol Intake frequency: a few times a week Drug use: Never Substance use type: does not use Do you feel safe at home: Yes Do you feel safe in your relationship?: Yes Exam Narrative Exam Narrative: CONST: Healthy appearing patient, in no acute distress. Well hydrated. Alert and alert. HENMT: Head nomocephalic, normal to inspection. Atraumatic. Hearing grossly normal. MUSCULOSKELETAL: FROM of all extremities. No knee pain with palpation motion pain with palpation or calf pain with palpation. No Achilles tenderness noted. Achilles tendon intact. Mild lateral malleolus tenderness with palpation. Dorsal foot pain with palpation along the fifth metatarsal. No open wounds. Pulses intact. Sensation intact distal. Flexion extension intact at the ankle. SKIN: Normal. Dry. No rashes. NEURO: Alert and awake. Speech clear. PSYCH: Normal affect. Cooperative. Course Vital Signs Vital signs: Vital Signs Temperature 36.5 C 01/06/19 10:19 Pulse 111 H 01/06/19 10:19 Respiratory Rate 16 01/06/19 10:19 Blood Pressure 153/67 H 01/06/19 10:19 Pulse Oximetry 100 01/06/19 10:19 Temperature 36.5 C 01/06/19 10:19 Temperature Source Skin 01/06/19 10:19 Pulse 111 H 01/06/19 10:19 Respiratory Rate 16 01/06/19 10:19 Respiratory Effort Non-Labored 01/06/19 10:19 Blood Pressure 153/67 H 01/06/19 10:19 Blood Pressure Position Sitting 01/06/19 10:19 Pulse Oximetry 100 01/06/19 10:19 Oxygen Delivery Method Room Air 01/06/19 10:19 Oxygen Flow Rate 0 01/06/19 10:19 Pain Level 9 01/06/19 10:19
--- NOTE | 2019-01-06 10:35 | DI.RAD_ITS ---
EXAM: XR FOOT RT COMPLETE INDICATION: injury lateral foot pain. COMPARISON: LEFT FOOT COMPLETE from 10/23/2010 TECHNIQUE: 2D digital imaging was performed. FINDINGS: There is no evidence of a fracture or dislocation. The bony structures and joint spaces are well main tained. Note is made of a tiny calcaneal spur.
--- NOTE | 2019-01-06 10:35 | DI.RAD_ITS ---
EXAM: XR ANKLE RT COMPLETE INDICATION: injury lateral malleolus. COMPARISON: LEFT ANKLE COMPLETE from 10/23/2010 TECHNIQUE: 2D digital imaging was performed. FINDINGS: The bony structures are normally mineralized. The mortise joint is intact. There is no evidence of a fracture or dislocation.
== END 2019-01-06 12:45 | disposition home or self-care (01) ==
PROVIDERS: Emergency Provider Physician Assistant; PCP Family Medicine
DX: S93.602A Unspecified sprain of left foot, initial encounter (principal); W01.0XXA Fall on same level from slipping, tripping and stumbling without subsequent striking against object, initial encounter
CPT/HCPCS: 29515; 99284; 73610; 73630; 99282; L1902

== ENCOUNTER 2019-04-28 09:47 | Outpatient (CLI) | payer OTHER, SELFPAY ==
[2019-04-28 10:44] LABS: Abs Immature Grans 0.01 k/cumm (0.0-0.09); Absolute Basophil Count 0.03 k/cumm (0.0-0.2); Absolute Eosinophil Count 0.08 k/cumm (0.0-0.7); Absolute Lymphocyte Count 0.96 k/cumm (1.2-3.4); Absolute Monocyte Count 0.42 k/cumm (0.11-0.7); Basophils % 0.6; Eosinophils % 1.7; HCT 41.4 % (36.0-46.0); HGB 13.6 g/dL (12.0-15.5); Immature Grans % 0.2 %; Mean Corp. HGB Concentration 32.9 g/dL (32.0-36.0); Mean Corpuscular Hemoglobin 31.4 pg (27.0-33.0); Mean Corpuscular Volume 95.6 fL (80-95); Mean Platelet Volume 9.7 fL (8.0-11.0); Monocytes % 8.8; Neutrophils % 68.7; Platelet Count 372 x1000/uL (130-400); RBC 4.33 m/cumm (4.00-5.20); RBC Distribution Width 11.9 % (11.7-14.6)
[2019-04-28 11:16] LABS: Iron 113 ug/dL (50-170); Total Iron Binding Capacity 357 ug/dL (250-450); Transferrin Sat 32 % (15-50)
[2019-04-28 11:24] LABS: Ferritin 33 ng/mL (8-252)
== END 2019-04-28 10:07 ==
PROVIDERS: PCP Family Medicine; Visit Provider Internal Medicine Rheumatology
DX: M32.9 Systemic lupus erythematosus, unspecified (principal); D50.9 Iron deficiency anemia, unspecified; E55.9 Vitamin D deficiency, unspecified
CPT/HCPCS: 36415; 82728; 83540; 83550; 85025

== ENCOUNTER 2019-08-27 15:59 | Outpatient (CLI) | payer MEDICAID, SELFPAY ==
[2019-08-27 16:20] LABS: HGB 14.6 g/dL (12.0-15.5); Mean Corp. HGB Concentration 33.2 g/dL (32.0-36.0); Mean Corpuscular Hemoglobin 31.4 pg (27.0-33.0); Mean Corpuscular Volume 94.6 fL (80-95); Mean Platelet Volume 10.1 fL (8.0-11.0); Platelet Count 323 x1000/uL (130-400); RBC 4.65 m/cumm (4.00-5.20); White Blood Cell Count 6.84 k/cumm (4.4-10.8)
[2019-08-27 17:24] LABS: Iron 90 ug/dL (50-170); Total Iron Binding Capacity 414 ug/dL (250-450); Transferrin Sat 22 % (15-50)
[2019-08-27 17:36] LABS: Ferritin 40 ng/mL (8-252)
[2019-08-27 20:03] LABS: ALT 66 U/L (14-59); AST 42 U/L (15-37); Albumin 3.8 g/dL (3.4-5.0); Alkaline Phosphatase 85 U/L (46-116); Anion Gap 12.5 mmol/L (3-11); BUN 14 mg/dL (7-18); Bilirubin, Total 0.4 mg/dL (0.2-1.0); CO2 23.5 mmol/L (21.0-32.0); Chloride 102 mmol/L (98-107); Glucose 79 mg/dL (74-106); Potassium 3.8 mmol/L (3.5-5.1); Sodium 138 mmol/L (136-145); Total Protein 7.3 g/dL (6.4-8.2)
== END 2019-08-27 16:19 ==
PROVIDERS: Internal Medicine Rheumatology; PCP Family Medicine; Visit Provider Family Medicine
DX: D64.9 Anemia, unspecified (principal); R06.02 Shortness of breath; M32.9 Systemic lupus erythematosus, unspecified; D50.9 Iron deficiency anemia, unspecified
CPT/HCPCS: 36415; 80053; 85027; 82728; 83540; 83550

== ENCOUNTER 2019-11-17 13:48 | Outpatient (REF) | payer MEDICAID, SELFPAY | END 2019-11-17 14:08 | LOC: LBN 13:48 | PROVIDERS: PCP Nurse Practitioner Family; Visit Provider Family Medicine | DX: R35.0 Frequency of micturition (principal) | CPT/HCPCS: 87077; 87086; 87186 ==

== ENCOUNTER 2020-01-11 16:41 | Outpatient (REF) | payer MEDICAID, SELFPAY | END 2020-01-11 17:01 | LOC: LBN 16:41 | PROVIDERS: PCP Nurse Practitioner Family; Visit Provider Family Medicine | DX: N39.0 Urinary tract infection, site not specified (principal) | CPT/HCPCS: 87077; 87086; 87186 ==

== ENCOUNTER 2020-02-21 20:43 | Outpatient (REF) | payer MEDICAID, SELFPAY ==
[2020-02-21 22:18] LABS: Bilirubin Negative (Negative); Blood Trace-intact (Negative); Clarity Sl Cloudy (Clear); Glucose Negative (Negative); Ketones Negative (Negative); Leukocyte Esterase Small (Negative); Nitrite Positive (Negative); Urobilinogen 0.2 EU/dL (Up TO 0.2)
[2020-02-21 22:29] LABS: Bacteria Many HPF (Negative); Epithelial Cells Rare HPF (Negative); WBC 20-50 HPF (0-5)
[2020-02-21 22:30] LABS: C & S Indicated? C&S Done As Ordered; Casts Negative LPF (Negative); Crystals Negative HPF (Negative); Mucus Negative (Negative)
== END 2020-02-21 21:03 ==
LOC: LBN 20:43
PROVIDERS: PCP Family Medicine; Visit Provider Nurse Practitioner Family
DX: N39.0 Urinary tract infection, site not specified (principal)
CPT/HCPCS: 87077; 81003; 81015; 87086; 87186

== ENCOUNTER 2020-03-01 11:31 | Outpatient (CLI) | payer MEDICAID, SELFPAY ==
[2020-03-01 12:35] LABS: Hemoglobin A1C 5.2 % (<5.7)
[2020-03-01 13:10] LABS: Calculated LDL 126 mg/dL (<100); Cholesterol 205 mg/dL (<200); HDL Cholesterol 62 mg/dL (40-60); TSH 1.09 uIU/mL (0.36-3.74); Triglyceride 87 mg/dL (<150); Vitamin B12 421 pg/mL (193-986)
[2020-03-01 13:40] LABS: FREE T4 1.01 ng/dL (0.76-1.46)
[2020-03-01 16:02] LABS: Abs Immature Grans 0.01 10^3/uL (0.0-0.06); Absolute Basophil Count 0.05 10^3/uL (0.0-0.2); Absolute Eosinophil Count 0.16 10^3/uL (0.0-0.7); Absolute Lymphocyte Count 1.17 10^3/uL (1.2-3.4); Absolute Monocyte Count 0.45 10^3/uL (0.1-0.8); Absolute Neutrophil Count 3.54 10^3/uL (1.2-6.7); Basophils % 0.9; HCT 41.3 % (36.0-46.0); HGB 13.5 g/dL (11.2-15.7); Immature Grans % 0.2; Lymphocytes % 21.7; MCH 30.6 pg (27.0-33.0); MCHC 32.7 % (32.0-36.0); MCV 93.7 fL (80-95); MPV 10.7 fL (8.0-11.0); Monocytes % 8.4; Neutrophils % 65.8; Nucleated RBC 0 %; Platelet Count 332 10^3/uL (130-400); RBC 4.41 10^6/uL (3.93-5.22); RDW 11.8 % (11.7-14.6); RDW-SD 40.8 fL; WBC 5.38 10^3/uL (4.4-10.8)
[2020-03-01 16:16] LABS: Iron 86 ug/dL (50-170); Total Iron Binding Capacity 363 ug/dL (250-450); Transferrin Sat 24 % (15-50)
[2020-03-01 16:30] LABS: Ferritin 48 ng/mL (8-252)
[2020-03-02 04:49] LABS: Vitamin D 25 Total 20.7 ng/ml (30-100)
[2020-03-03 10:28] LABS: ALT 28 U/L (14-59); AST 20 U/L (15-37); Albumin 3.8 g/dL (3.4-5.0); Alkaline Phosphatase 97 U/L (46-116); Anion Gap 11.4 mmol/L (3-11); BUN 14 mg/dL (7-18); Bilirubin, Total 0.3 mg/dL (0.2-1.0); CO2 25.6 mmol/L (21.0-32.0); CREATININE 0.99 mg/dL (0.55-1.02); Chloride 104 mmol/L (98-107); Glucose 87 mg/dL (74-106); Potassium 4.1 mmol/L (3.5-5.1); Sodium 141 mmol/L (136-145); Total Protein 7.1 g/dL (6.4-8.2)
== END 2020-03-01 11:51 ==
PROVIDERS: Nurse Practitioner Family; PCP Family Medicine; Referring Provider Family Medicine; Visit Provider Family Medicine
DX: E55.9 Vitamin D deficiency, unspecified (principal); E53.8 Deficiency of other specified B group vitamins; E66.9 Obesity, unspecified; M32.19 Other organ or system involvement in systemic lupus erythematosus
CPT/HCPCS: 36415; 80053; 80061; 82306; 82607; 82728; 83036; 83540; 83550; 84439; 84443; 85025

== ENCOUNTER 2020-04-07 04:28 | Outpatient (CLI) | payer MEDICAID, SELFPAY ==
--- NOTE | 2020-04-07 12:38 | DI.RAD_ITS ---
EXAM: XR CERVICAL SPINE COMP 4-5V CLINICAL HISTORY: chronic right sided neck pain/occipital headaches,CERVICALAGIA,M54.2. TECHNIQUE: 2D digital imaging was performed. COMPARISON: No exams were available for comparison FINDINGS: BONES: No fracture or destructive lesion. Vertebral bodies are unremarkable. DISKS: Intervertebral disc spaces are maintained. ALIGNMENT: Cervical spinal alignment is within normal limits. The odontoid and atlantoaxial articulat ions are normal. SOFT TISSUE: Normal. The lung apices are clear. IMPRESSION: Unremarkable radiographs of the cervical spine. DATA REPOSITORY: RADIATION DOSE DELIVERED:
== END 2020-04-07 04:48 ==
PROVIDERS: PCP Family Medicine; Visit Provider Nurse Practitioner Family
DX: G89.29 Other chronic pain (principal); M54.2 Cervicalgia; R51.9 Headache, unspecified
CPT/HCPCS: 72050

== ENCOUNTER 2020-04-10 03:11 | Outpatient (CLI) | payer MEDICAID, SELFPAY ==
--- NOTE | 2020-04-25 15:07 | ZIOP_ITS ---
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 ?The patient was in normal sinus rhythm for the majority of the recording with an average heart rate of 85 bpm. ?There were rare PACs and no PVCs. ?There was one episode of supraventricular tachycardia which lasted 3 beats. There were no episodes of ventricular tachycardia. ?There were no episodes of atrial fibrillation, no pauses greater than 3 seconds no evidence of high degree heart block. ?14 patient triggered events were associated with sinus rhythm or sinus tachycardia
== END 2020-04-10 03:31 ==
PROVIDERS: PCP Family Medicine; Visit Provider Internal Medicine Cardiovascular Disease
DX: R00.2 Palpitations (principal); I47.1 Supraventricular tachycardia
CPT/HCPCS: 93246

== ENCOUNTER 2020-05-03 09:42 | Outpatient (REF) | payer MEDICAID, SELFPAY ==
[2020-05-07 17:29] LABS: 2-Hydroxy Ethyl Flurazepam Not Detected ng/mL (Cutoff: 10); 6-monoacetylmorphine Not Detected ng/mL (Cutoff: 25); Alpha-Hydroxy Midazolam Not Detected ng/mL (Cutoff: 10); Alpha-Hydroxy Triazolam Not Detected ng/mL (Cutoff: 10); Alpha-Hydroxyalprazolam Not Detected ng/mL (Cutoff: 10); Alpha-OH-alprazolam Glucuronid Not Detected ng/mL (Cutoff: 50); Alprazolam Not Detected ng/mL (Cutoff: 10); Amphetamines Presumptive Positive ng/mL (Cutoff: 500); Barbiturates Negative ng/mL (Cutoff: 200); Buprenorphine Not Detected ng/mL (Cutoff: 5); Chlordiazepoxide Not Detected ng/mL (Cutoff: 10); Clobazam Not Detected ng/mL (Cutoff: 10); Clonazepam Not Detected ng/mL (Cutoff: 10); Cocaine Negative ng/mL (Cutoff: 150); Codeine Not Detected ng/mL (Cutoff: 25); Comment Normal; Creatinine, U 140.8 mg/dL; Diazepam Not Detected ng/mL (Cutoff: 10); Dihydrocodeine Present ng/mL (Cutoff: 25); EDDP Not Detected ng/mL (Cutoff: 25); Fentanyl Not Detected ng/mL (Cutoff: 2); Flurazepam Not Detected ng/mL (Cutoff: 10); Hydrocodone Present ng/mL (Cutoff: 25); Hydromorphone Not Detected ng/mL (Cutoff: 25); Hydromorphone-3-beta-glucuroni Present ng/mL (Cutoff: 100); Lorazepam Not Detected ng/mL (Cutoff: 10); Lorazepam Glucuronide Not Detected ng/mL (Cutoff: 50); Meperidine Not Detected ng/mL (Cutoff: 25); Methadone Not Detected ng/mL (Cutoff: 25); Midazolam Not Detected ng/mL (Cutoff: 10); Morphine Not Detected ng/mL (Cutoff: 25); N-Desmethylclobazam Not Detected ng/mL (Cutoff: 200); N-desmethyltapentadol Not Detected ng/mL (Cutoff: 50); Naloxone Not Detected ng/mL (Cutoff: 25); Norbuprenorphine Not Detected ng/mL (Cutoff: 5); Norfentanyl Not Detected ng/mL (Cutoff: 2); Norhydrocodone Present ng/mL (Cutoff: 25); Normeperidine Not Detected ng/mL (Cutoff: 25); Noroxycodone Not Detected ng/mL (Cutoff: 25); Noroxymorphone Not Detected ng/mL (Cutoff: 25); O-desmethyltramadol Not Detected ng/mL (Cutoff: 25); Oxazepam Glucuronide Not Detected ng/mL (Cutoff: 50); Phencyclidine Negative ng/mL (Cutoff: 25); Prazepam Not Detected ng/mL (Cutoff: 10); Propoxyphene Not Detected ng/mL (Cutoff: 25); Tapentadol Not Detected ng/mL (Cutoff: 25); Temazepam Not Detected ng/mL (Cutoff: 10); Temazepam Glucuronide Not Detected ng/mL (Cutoff: 50); Tetrahydrocannabinol Negative ng/mL (Cutoff: 50); Tramadol Not Detected ng/mL (Cutoff: 25); Triazolam Not Detected ng/mL (Cutoff: 10); Zolpidem Phenyl-4-Carboxy acid Present ng/mL (Cutoff: 10); pH 5.5
[2020-05-08 08:32] LABS: Amphetamine 9420 ng/mL (Cutoff: 25); Amphetamines Interpretation Positive.; MDA (Ecstasy Metabolite) Negative ng/mL (Cutoff: 25); MDMA (Ecstasy) Negative ng/mL (Cutoff: 25); Methamphetamine Negative ng/mL (Cutoff: 25); Phentermine Negative ng/mL (Cutoff: 25); Pseudoephedrine/Ephedrine Negative ng/mL (Cutoff: 25)
== END 2020-05-03 09:43 | disposition home or self-care (01) ==
LOC: LBN 09:42
PROVIDERS: PCP Family Medicine; Visit Provider Nurse Practitioner Family
DX: Z79.891 Long term (current) use of opiate analgesic (principal)
CPT/HCPCS: 80307; 80324; 80347; 80364

== ENCOUNTER 2020-05-09 08:06 | Outpatient (CLI) | payer MEDICAID, SELFPAY ==
[2020-05-09 08:17] VITALS: BP 138/82; PULSE 96; RESP 17; TEMP 36.7; O2SAT 100
--- NOTE | 2020-05-09 08:56 | DI.RAD_ITS ---
EXAM: XR PAIN CLINIC CERVICAL SP 2V CLINICAL HISTORY: Dx: Cervical Spondylosis TECHNIQUE: 2D and realtime digital imaging was performed. CONTRAST MATERIAL: Refer to procedure report. COMPARISON: No exams were available for comparison FINDINGS: Fluoroscopy was provided for Dr. Jara during the performance of a cervical medial branch block. Ple ase refer to the procedure report for complete details. Fluoro time: 53.5 seconds IMPRESSION:
--- NOTE | 2020-05-09 08:59 | PDOC.PAIN_ITS ---
Pain Clinic Procedure Note Procedure Note Procedure Note: Date of service: May 09, 2020 CERVICAL MEDIAL BRANCH BLOCKS #1 ARLEEN COON has been referred to the [facility] for cervical medial branch blocks. COMMENTS: She was evaluated in our office on 05/03/20. I did review that report. Her pain is worse on the left and that is why we are starting this on the left. I did also review her recent imaging. Dx: Cervical spondylosis without myelopathy Ms. COON was interviewed and the medical record reviewed. There were no medical, pharmacologic, radiographic or other structural contraindications to attempting fluoroscopically guided local anesthetic cervical medial branch blocks. Risks and expected side effects as well as potential benefit of the procedure were reviewed with Ms. COON, and Ms. COON'berenice voiced concerns addressed. The printed consent form was signed and witnessed. Standard time-out procedure was performed. Ms. COONwas placed in the Right lateral decubitus position on the fluoroscopy table and automated blood pressure cuff and pulse oximeter applied. Chlorhexadine preparation of the skin and draping was completed. The skin entry points for approaching the anatomic target points of the segmental medial branc hes of Left C2-C5 were identified with fluoroscopy and marked. Next a 25 gauge spinal needle was placed under fluoroscopic guidance down on to the target point for each respective segmental medial branch. Position was confirmed in A/P and leteral views with 0.25ml of omnipaque 240 injected at each level. At each point 0.3ml 0.5% bupivicaine was injected. Ms. Soriano vital signs were stable throughout the procedure and were as recorded in the docflowsheet by the nursing staff. Follow up plans and appointments were discussed with Ms. COON. was instructed to keep careful note of how the usual pain was modified by these injections. Specifically, the patient was asked to keep a pain diary for the next 24 hours using a numeric pain scale of 0-10 and report these results at the follow-up visit. Post procedure instruction was given as documented in the nursing documentation and having met discharge criteria, Ms. Soriano was discharged from the Pain Management Center. Based on the medial branches blocked today, if they patient has adequate relief and we are able to proceed to radiofrequency ablation, the treatment should result in the denervation of the left C2-C3, C3-C4, and C4-C5 FACET JOINTS. We would expect to denervate a total of 3 facets during the radiofrequency ablation. COMMENTS: She will call back with her 1-4 hour post-procedure pain scores for the left side of her neck. Harpreet Jara DO, MPH Pain Management CC: Panfilo Walter MD
[2020-05-09 09:00] VITALS: BP 126/94; PULSE 84; RESP 16; O2SAT 100
[2020-05-09] MEDS: Bupivacaine 0.5% Pres-Free 10 ML VIAL IJ (09:16)
[2020-05-09] MEDS: Omnipaque 240 MG/ML 50 ML BTL IJ (09:17)
== END 2020-05-09 08:07 | disposition home or self-care (01) ==
LOC: PC 08:06
PROVIDERS: PCP Family Medicine; Visit Provider Preventive Medicine Occupational Medicine
DX: M47.812 Spondylosis without myelopathy or radiculopathy, cervical region (principal)
CPT/HCPCS: 64490; 64491; 64492; 72040; Q9967

== ENCOUNTER 2020-05-26 10:40 | Outpatient (REF) | payer MEDICAID, SELFPAY ==
--- NOTE | 2020-05-26 08:50 | PAPFT_PTH ---
PATIENT: Ashley Cedeno LOC: [facility] U#:[id number] AGE/SX: 44/F ROOM: RE05/26/[address]: FERNY Burgess : 1975 BED: DIS: 05/26/2020 SPEC #: [id number] RECD: 05/26/20 12:55 STATUS: [facility] REL[facility]anna #: [id number] LESLIE: 05/26/20 08:[address]: Rufina Voss DEPT: [facility] Cytology RECD BY: Ila Mandel ENTERED: 05/26/20 12:55 SP TYPE: PAPFT OTHR DR: Panfilo Walter MD Tissues: 1 - CX/ENDOCX FOR PAP SMEARS Procedures: PAP THIN PREP/UVM Screening HPV DNA PROBE Comments: [id number] (CHLAMYDIA/GC)
[2020-05-29 21:03] LABS: Chlamydia Result Negative (Negative); GC Result Negative (Negative)
== END 2020-05-26 10:41 | disposition home or self-care (01) ==
LOC: LBN 10:40
PROVIDERS: PCP Family Medicine; Visit Provider Nurse Practitioner Family
DX: Z11.3 Encounter for screening for infections with a predominantly sexual mode of transmission (principal); Z12.4 Encounter for screening for malignant neoplasm of cervix; Z11.51 Encounter for screening for human papillomavirus (HPV)
CPT/HCPCS: 87491; 87591; 88142; 87624

== ENCOUNTER 2020-05-31 14:19 | Outpatient (CLI) | payer MEDICAID, SELFPAY ==
--- NOTE | 2020-05-31 06:00 | DI.RAD_ITS ---
EXAM: XR PAIN CLINIC CERVICAL SP 2V CLINICAL HISTORY: Dx:Cervical Spondylosis TECHNIQUE: 2D and realtime digital imaging was performed. CONTRAST MATERIAL: Refer to procedure report. COMPARISON: No exams were available for comparison FINDINGS: Fluoroscopy was provided for Dr. Jara during the performance of a cervical medial branch block. Ple ase refer to the procedure report for complete details. Fluoro time: 43.6 seconds IMPRESSION:
[2020-05-31 14:32] VITALS: BP 148/74; PULSE 94; RESP 18; TEMP 36.7; O2SAT 98
--- NOTE | 2020-05-31 15:18 | PDOC.PAIN ---
Pain Clinic Procedure Note Procedure Note Procedure Note: Date of service: May 31, 2020 CERVICAL MEDIAL BRANCH BLOCKS #2 at the left C2-C5 ARLEEN COON has been referred to the [facility] for cervical medial branch blocks. COMMENTS: She did very well with the first CMBB Dx: Cervical spondylosis without myelopathy Patient was interviewed and the medical record reviewed. There were no medical, pharmacologic, radiographic or other structural contraindications to attempting fluoroscopically guided local anesthetic cervical medial branch blocks. Risks and expected side effects as well as potential benefit of the procedure were reviewed and voiced concerns addressed. The printed consent form was signed and witnessed. Standard time-out procedure was performed. Patient was placed in the Right lateral decubitus position on the fluoroscopy table and automated blood pressure cuff and pulse oximeter applied. The skin entry points for approaching the anatomic target points of the segmental medial branches of Left C2-C5 were identified with fluoroscopy and marked. Following thorough Chlorhexadine preparation of the skin and draping and 1% lidocaine infiltration of the skin entry points and subcutaneous tissues, a 25 gauge spinal needle was placed under fluoroscopic guidance down on to the target point for each respective segmental medial branch. Position was confirmed in A/P and leteral views with 0.25ml of omnipaque 240 injected at each level. This revealed appropriate spread and no vascular uptake. At each point 0.3ml 2% Lidocaine was injected. Vital signs were stable throughout the procedure and were as recorded in the docflowsheet by the nursing staff. Follow up plans and appointments were discussed and patient was instructed to keep careful note of how the usual pain was modified by these injections. Specifically, the patient was asked to keep a pain diary for the next 24 hours using a numeric pain scale of 0-10 and report these results at the follow-up visit. Post procedure instruction was given as documented in the nursing documentation and having met discharge criteria, and was discharged from the [facility]. Based on the medial branches blocked today, if they patient has adequate relief and we are able to proceed to radiofrequency ablation, the treatment should result in the denervation of the left C2-C3, C3-C4, and C4-C5 FACET JOINTS3. We would expect to denervate a total of facets during the radiofrequency ablation. COMMENTS: She will call back with her 1-4 hour post-procedure pain scores. Harpreet Jara DO, MPH Pain Management CC: Panfilo Walter MD
[2020-05-31] MEDS: Omnipaque 240 MG/ML 50 ML BTL IJ (15:19)
[2020-05-31] MEDS: Lidocaine 2% Pres-Free 5 ML VIAL IJ (15:28)
[2020-05-31 15:33] VITALS: BP 152/88; PULSE 84; RESP 22; O2SAT 100
== END 2020-05-31 14:20 | disposition home or self-care (01) ==
LOC: PC 14:19
PROVIDERS: PCP Family Medicine; Visit Provider Preventive Medicine Occupational Medicine
DX: M47.812 Spondylosis without myelopathy or radiculopathy, cervical region (principal)
CPT/HCPCS: 64490; 64494; 72040; Q9967

== ENCOUNTER 2020-06-01 03:04 | Outpatient (CLI) | payer MEDICAID, SELFPAY ==
--- NOTE | 2020-06-01 16:27 | DI.MAMMO_ITS ---
EXAM: MG MAMMO SCREENING CLINICAL HISTORY: screening,Z12.39 TECHNIQUE: Bilateral full field digital CC and MLO mammographic images were obtained with 3D tomosyn thesis and utilizing computer aided detection (CAD). COMPARISON: Available for comparison. FINDINGS: Masses/Architectural Distortion: None seen. Microcalcifications: No suspicious pleomorphic-type are seen. Skin Thickening/Nipple Retraction: None. IMPRESSION: 1. No significant interval change with no specific features of malignancy noted. 2. Unless there is more urgent need, screening mammography is recommended, as per [employer] guidelines. BI-RADS Category 1 - Negative Breast Density - Category B - Scattered areas of fibroglandular density Breast density category C or D implies that the patient has dense breast tissue. Dense breast tissue is very common and is not abnormal but dense breast tissue can make it harder to find cancer on a ma mmogram. Also, dense breast tissue may increase their breast cancer risk. This information about the result of the mammogram report was provided to the patient to raise their awareness. Use this report when you speak with the patient about their risks for breast cancer, which includes their family hist ory. At that time, you may recommend for more screening tests (Ultrasound or MRI) as they might be us eful based on their risk. A negative radiographic report should not delay biopsy if a dominant or clinically suspicious mass is present. Up to ten percent of cancers are not identified on mammography. A negative report may reinforce clinical impression. Adenosis and dense breasts may obscure an underlying neoplasm. False positive reports average 6 to 10%. Patient will receive a letter notifying them of these results.
== END 2020-06-01 03:24 ==
PROVIDERS: PCP Family Medicine; Visit Provider Nurse Practitioner Family
DX: Z12.31 Encounter for screening mammogram for malignant neoplasm of breast (principal)
CPT/HCPCS: 77063; 77067

== ENCOUNTER 2020-08-03 11:31 | Outpatient (CLI) | payer MEDICAID, SELFPAY ==
--- NOTE | 2020-08-03 06:00 | DI.RAD_ITS ---
Exam(s) XR PAIN CLINIC CERVICAL SP 2V EXAM: XR PAIN CLINIC CERVICAL SP 2V CLINICAL HISTORY: Dx: Cervical Spondylosis TECHNIQUE: 2D and realtime digital imaging was performed. COMPARISON: No exams were available for comparison FINDINGS: C-arm fluoroscopy was utilized by Dr. Jara during reported cervical radiofrequency ablation. Hard co pies show needle placement at C2-3 C3-4 C4-5 and C5-[address]. [address] Jara its procedure note . IMPRESSION: RADIATION DOSE DELIVERED: angelita Georges=10.8 mGy
[2020-08-03 11:49] VITALS: BP 146/84; PULSE 87; RESP 17; TEMP 36.7; O2SAT 98
[2020-08-03] MEDS: Lactated Ringers 1,000 ML 80 ML IV (12:11)
[2020-08-03] MEDS: fentaNYL 100 MCG/2 ML VIAL IVP ×2 (12:17→12:35)
[2020-08-03] MEDS: Midazolam 2 MG/2 ML VIAL IVP (12:17)
[2020-08-03 12:46] VITALS: BP 143/92; PULSE 78; RESP 18; O2SAT 100
[2020-08-03] MEDS: Dexamethasone Sod. Phos./Pres-Free 10 MG/ML VIAL IJ (12:50)
[2020-08-03] MEDS: Lidocaine 2% Pres-Free 5 ML VIAL IJ (12:51)
[2020-08-03] MEDS: Bupivacaine 0.5% Pres-Free 10 ML VIAL IJ (12:51)
--- NOTE | 2020-08-03 12:53 | PDOC.PAIN ---
Pain Clinic Procedure Note Procedure Note Procedure Note: Cervical Radiofrequency with Coolief Machine PROCEDURE NOTE Date of Service: August 03, 2020 Patient: ARLEEN COON Provider: Harpreet Jara DO, MPH Pre Operative Diagnosis: Cervical spondylosis without myelopathy Post Operative Diagnosis: Same PROCEDURE: 1. Left C2-C3 facet joint radiofrequency denervation 2. Left C3-C4 facet joint radiofrequency denervation 3. Left C4-C5 facet joint radiofrequency denervation ARLEEN COON was brought to the operating room and placed on the exam table in a comfortable prone position. The place for the needle placement was obtained by manual palpation as well as radiographic confirmation. The sterile field was prepped by chlorhexidine and sterile drapes. Local anesthesia, both superficial and deep was provided by local infiltration of 8 ml Lidocaine 1%. Using fluoroscopic guidance, A 17g 50 mm radiofrequency introducer needle with a 2 mm active tip was placed overlying the left C2 cervical vertebra from the lateral approach and was advanced until bony contact was felt with the articular pillar. The needle was walked off the pillar, maintaining contact with the bone. Attempted aspiration revealed no blood or cerebrospinal fluid. Radiographs were then made in AP and lateral. Motor testing was then performed with 2.0 volts and no upper extremity motor stimulation was observed. 1 cc of the 5ml Lidocaine was injected through the RF needle. A radiofrequency lesion of the left medial branch of C2 was then performed at 80 degrees Celsius for 2 minutes and 30 seconds. The same procedure was repeated for LEFT C3, C4 and C5 medial branches. POST PROCEDURE EVALUATION: Follow up plans and appointments were discussed with the ARLEEN . Post procedure instruction was given as documented in nursing documentation and having met discharge criteria, ARLEEN was discharged from the [facility]. COMMENTS: No complications. F/U with our office as needed. I personally performed this entire procedure. Harpreet Jara Pain Management Attending Physician
== END 2020-08-03 11:32 | disposition home or self-care (01) ==
LOC: PC 11:31
PROVIDERS: PCP Family Medicine; Visit Provider Preventive Medicine Occupational Medicine
DX: M47.812 Spondylosis without myelopathy or radiculopathy, cervical region (principal)
CPT/HCPCS: 64633; 64634; 72040; J2250; J3010

== ENCOUNTER 2020-08-21 14:58 | Outpatient (REF) | payer MEDICAID, SELFPAY ==
[2020-08-25 10:07] LABS: 2-Hydroxy Ethyl Flurazepam Not Detected ng/mL (Cutoff: 10); 3,4-methylenedioxyamphetamine Not Detected ng/mL (Cutoff: 100); 3,4-methylenedioxyethylampheta Not Detected ng/mL (Cutoff: 100); 3,4-methylenedioxymethamphetam Not Detected ng/mL (Cutoff: 100); 6-monoacetylmorphine Not Detected ng/mL (Cutoff: 25); Alpha-Hydroxy Midazolam Not Detected ng/mL (Cutoff: 10); Alpha-Hydroxy Triazolam Not Detected ng/mL (Cutoff: 10); Alpha-Hydroxyalprazolam Not Detected ng/mL (Cutoff: 10); Alpha-OH-alprazolam Glucuronid Not Detected ng/mL (Cutoff: 50); Alprazolam Not Detected ng/mL (Cutoff: 10); Amphetamine Present ng/mL (Cutoff: 100); Barbiturates Negative ng/mL (Cutoff: 200); Buprenorphine Not Detected ng/mL (Cutoff: 5); Chlordiazepoxide Not Detected ng/mL (Cutoff: 10); Clobazam Not Detected ng/mL (Cutoff: 10); Clonazepam Not Detected ng/mL (Cutoff: 10); Cocaine Negative ng/mL (Cutoff: 150); Codeine Not Detected ng/mL (Cutoff: 25); Comment Normal; Diazepam Not Detected ng/mL (Cutoff: 10); Dihydrocodeine Not Detected ng/mL (Cutoff: 25); EDDP Not Detected ng/mL (Cutoff: 25); Ephedrine Not Detected ng/mL (Cutoff: 100); Fentanyl Not Detected ng/mL (Cutoff: 2); Flurazepam Not Detected ng/mL (Cutoff: 10); Hydrocodone Not Detected ng/mL (Cutoff: 25); Hydromorphone Not Detected ng/mL (Cutoff: 25); Hydromorphone-3-beta-glucuroni Not Detected ng/mL (Cutoff: 100); Lorazepam Not Detected ng/mL (Cutoff: 10); Lorazepam Glucuronide Not Detected ng/mL (Cutoff: 50); Meperidine Not Detected ng/mL (Cutoff: 25); Methadone Not Detected ng/mL (Cutoff: 25); Methamphetamine Not Detected ng/mL (Cutoff: 100); Methylphenidate Not Detected ng/mL (Cutoff: 20); Midazolam Not Detected ng/mL (Cutoff: 10); Morphine Not Detected ng/mL (Cutoff: 25); N-Desmethylclobazam Not Detected ng/mL (Cutoff: 200); N-desmethyltapentadol Not Detected ng/mL (Cutoff: 50); Naloxone Not Detected ng/mL (Cutoff: 25); Norbuprenorphine Not Detected ng/mL (Cutoff: 5); Norfentanyl Not Detected ng/mL (Cutoff: 2); Norhydrocodone Not Detected ng/mL (Cutoff: 25); Normeperidine Not Detected ng/mL (Cutoff: 25); Noroxycodone Not Detected ng/mL (Cutoff: 25); Noroxymorphone Not Detected ng/mL (Cutoff: 25); O-desmethyltramadol Not Detected ng/mL (Cutoff: 25); Oxazepam Glucuronide Not Detected ng/mL (Cutoff: 50); Phencyclidine (PCP) Not Detected ng/mL (Cutoff: 20); Phentermine Not Detected ng/mL (Cutoff: 100); Prazepam Not Detected ng/mL (Cutoff: 10); Propoxyphene Not Detected ng/mL (Cutoff: 25); Pseudoephedrine Not Detected ng/mL (Cutoff: 100); Ritalinic Acid Not Detected ng/mL (Cutoff: 100); Specific Gravity 1.016; Tapentadol Not Detected ng/mL (Cutoff: 25); Temazepam Not Detected ng/mL (Cutoff: 10); Temazepam Glucuronide Not Detected ng/mL (Cutoff: 50); Tetrahydrocannabinol Negative ng/mL (Cutoff: 50); Tramadol Not Detected ng/mL (Cutoff: 25); Triazolam Not Detected ng/mL (Cutoff: 10); Zolpidem Phenyl-4-Carboxy acid Present ng/mL (Cutoff: 10); pH 5.7
== END 2020-08-21 14:59 | disposition home or self-care (01) ==
LOC: LBN 14:58
PROVIDERS: PCP Family Medicine; Visit Provider Nurse Practitioner Family
DX: M47.812 Spondylosis without myelopathy or radiculopathy, cervical region (principal); Z79.891 Long term (current) use of opiate analgesic; M54.2 Cervicalgia
CPT/HCPCS: 80307; 80347; 80364

== ENCOUNTER 2020-09-01 03:04 | Outpatient (CLI) | payer MEDICAID, SELFPAY ==
[2020-09-01 14:58] LABS: Abs Immature Grans 0.02 10^3/uL (0.0-0.06); Absolute Basophil Count 0.03 10^3/uL (0.0-0.2); Absolute Eosinophil Count 0.07 10^3/uL (0.0-0.7); Absolute Lymphocyte Count 1.38 10^3/uL (1.2-3.4); Absolute Monocyte Count 0.64 10^3/uL (0.1-0.8); Basophils % 0.5; Eosinophils % 1.1; HCT 39.1 % (36.0-46.0); Immature Grans % 0.3; Lymphocytes % 20.8; MCHC 33.2 % (32.0-36.0); MCV 93.3 fL (80-95); MPV 9.4 fL (8.0-11.0); Monocytes % 9.6; Neutrophils % 67.7; Nucleated RBC 0 %; Platelet Count 380 10^3/uL (130-400); RBC 4.19 10^6/uL (3.93-5.22); RDW-SD 41.3 fL; WBC 6.64 10^3/uL (4.4-10.8)
[2020-09-01 17:04] LABS: ALT 37 U/L (14-59); AST 23 U/L (15-37); Albumin 3.8 g/dL (3.4-5.0); Alkaline Phosphatase 111 U/L (46-116); Anion Gap 7.6 mmol/L (3-11); BUN 11 mg/dL (7-18); Bilirubin, Total 0.3 mg/dL (0.2-1.0); CO2 30.4 mmol/L (21.0-32.0); Calcium 9.2 mg/dL (8.5-10.1); Chloride 102 mmol/L (98-107); Estimated GFR 59.96 (mL/min/1.73m2); Glucose 106 mg/dL (74-106); Potassium 3.6 mmol/L (3.5-5.1); Sodium 140 mmol/L (136-145); Total Protein 7.2 g/dL (6.4-8.2)
== END 2020-09-01 03:05 | disposition home or self-care (01) ==
LOC: LBO 03:04
PROVIDERS: PCP Family Medicine; Visit Provider Internal Medicine Rheumatology
DX: M32.19 Other organ or system involvement in systemic lupus erythematosus (principal); M79.7 Fibromyalgia; E55.9 Vitamin D deficiency, unspecified
CPT/HCPCS: 36415; 80053; 85025

== ENCOUNTER 2020-10-26 04:27 | Outpatient (CLI) | payer MEDICAID, SELFPAY ==
[2020-10-26 14:30] LABS: Abs Immature Grans 0.01 10^3/uL (0.0-0.06); Absolute Basophil Count 0.05 10^3/uL (0.0-0.2); Absolute Lymphocyte Count 1.25 10^3/uL (1.2-3.4); Absolute Monocyte Count 0.64 10^3/uL (0.1-0.8); Absolute Neutrophil Count 2.46 10^3/uL (1.2-6.7); Basophils % 1.1; Eosinophils % 2.2; HCT 42.8 % (36.0-46.0); HGB 13.7 g/dL (11.2-15.7); Immature Grans % 0.2; Lymphocytes % 27.7; MCH 30.4 pg (27.0-33.0); MCV 94.9 fL (80-95); MPV 9.5 fL (8.0-11.0); Monocytes % 14.2; Neutrophils % 54.6; Nucleated RBC 0 %; Platelet Count 344 10^3/uL (130-400); RBC 4.51 10^6/uL (3.93-5.22); RDW 12.6 % (11.7-14.6); RDW-SD 43.2 fL; WBC 4.51 10^3/uL (4.4-10.8)
[2020-10-26 16:06] LABS: ALT 28 U/L (14-59); AST 15 U/L (15-37); Albumin 3.8 g/dL (3.4-5.0); Alkaline Phosphatase 99 U/L (46-116); Anion Gap 10.5 mmol/L (3-11); BUN 12 mg/dL (7-18); Bilirubin, Total 0.2 mg/dL (0.2-1.0); CO2 27.5 mmol/L (21.0-32.0); Calcium 9.1 mg/dL (8.5-10.1); Chloride 106 mmol/L (98-107); Estimated GFR 59.96 (mL/min/1.73m2); Glucose 98 mg/dL (74-106); Potassium 4.3 mmol/L (3.5-5.1); Sodium 144 mmol/L (136-145); Total Protein 7.3 g/dL (6.4-8.2)
== END 2020-10-26 04:28 | disposition home or self-care (01) ==
LOC: LBO 04:27
PROVIDERS: PCP Family Medicine; Visit Provider Internal Medicine Rheumatology
DX: M32.9 Systemic lupus erythematosus, unspecified (principal); Z79.899 Other long term (current) drug therapy
CPT/HCPCS: 36415; 80053; 85025

== ENCOUNTER 2020-12-06 19:15 | Outpatient (REF) | payer MEDICAID, SELFPAY | END 2020-12-06 19:16 | disposition home or self-care (01) | LOC: LBN 19:15 | PROVIDERS: PCP Family Medicine; Visit Provider Family Medicine | DX: R35.0 Frequency of micturition (principal) | CPT/HCPCS: 87077; 87086; 87186 ==

== ENCOUNTER 2021-01-02 23:21 | Outpatient (REF) | payer MEDICAID, SELFPAY | END 2021-01-02 23:22 | disposition home or self-care (01) | LOC: LBN 23:21 | PROVIDERS: PCP Family Medicine; Visit Provider Family Medicine | DX: R30.0 Dysuria (principal) | CPT/HCPCS: 87086 ==

== ENCOUNTER 2021-01-05 16:51 | Outpatient (REF) | payer MEDICAID, SELFPAY ==
[2021-01-11 12:12] LABS: Urine Volume 2650 mL
== END 2021-01-05 16:52 | disposition home or self-care (01) ==
LOC: LBN 16:51
PROVIDERS: PCP Family Medicine; Visit Provider Family Medicine
DX: R23.2 Flushing (principal)
CPT/HCPCS: 81050; 82384

== ENCOUNTER 2021-02-02 08:47 | Outpatient (CLI) | payer MEDICAID, SELFPAY ==
[2021-02-02 10:43] LABS: Abs Immature Grans 0.01 10^3/uL (0.0-0.06); Absolute Basophil Count 0.04 10^3/uL (0.0-0.2); Absolute Eosinophil Count 0.07 10^3/uL (0.0-0.7); Absolute Lymphocyte Count 1.05 10^3/uL (1.2-3.4); Absolute Monocyte Count 0.58 10^3/uL (0.1-0.8); Absolute Neutrophil Count 3.28 10^3/uL (1.2-6.7); Basophils % 0.8; Eosinophils % 1.4; HCT 37.7 % (36.0-46.0); HGB 11.9 g/dL (11.2-15.7); Immature Grans % 0.2; Lymphocytes % 20.9; MCH 29.3 pg (27.0-33.0); MCHC 31.6 % (32.0-36.0); MCV 92.9 fL (80-95); Monocytes % 11.5; Neutrophils % 65.2; Nucleated RBC 0 %; Platelet Count 328 10^3/uL (130-400); RBC 4.06 10^6/uL (3.93-5.22); RDW 11.9 % (11.7-14.6); WBC 5.03 10^3/uL (4.4-10.8)
[2021-02-02 11:26] LABS: ALT 57 U/L (14-59); AST 25 U/L (15-37); Albumin 3.4 g/dL (3.4-5.0); Alkaline Phosphatase 99 U/L (46-116); Anion Gap 8.8 mmol/L (3-11); BUN 13 mg/dL (7-18); Bilirubin, Total 0.3 mg/dL (0.2-1.0); CO2 28.2 mmol/L (21.0-32.0); Calcium 8.6 mg/dL (8.5-10.1); Chloride 103 mmol/L (98-107); Estimated GFR 59.96 (mL/min/1.73m2); Glucose 95 mg/dL (74-106); Potassium 3.7 mmol/L (3.5-5.1); Sodium 140 mmol/L (136-145); Total Protein 6.8 g/dL (6.4-8.2)
== END 2021-02-02 08:48 | disposition home or self-care (01) ==
LOC: LBO 08:48
PROVIDERS: PCP Family Medicine; Visit Provider Internal Medicine Rheumatology
DX: M79.7 Fibromyalgia (principal); M32.9 Systemic lupus erythematosus, unspecified
CPT/HCPCS: 36415; 80053; 85025

== ENCOUNTER 2021-02-15 01:35 | Outpatient (CLI) | payer MEDICAID, SELFPAY ==
--- NOTE | 2021-02-15 06:45 | DI.CT_ITS ---
Exam(s) CT ABDOMEN PELVIS WO/W EXAM: CT ABDOMEN PELVIS WO/W CLINICAL HISTORY: recurrent uti/LUPUS,n39.0,m32.19. TECHNIQUE: Imaging Protocol: Axial computed tomography images with coronal and sagittal reformatted images were created and reviewed CONTRAST MATERIAL: Intravenous: Omnipaque 100cc Oral: None COMPARISON: CT CT ABDOMEN PELVIS W from 11/17/2018 FINDINGS: VISUALIZED LUNG BASES: No nodules nor pleural effusions evident. ABDOMEN: There is no ascites. LIVER: There are no focal hepatic lesions evident . GALLBLADDER/BILIARY: Gallbladder is surgically absent. CBD is not dilated. PANCREAS: On the posterior aspect of the body of the pancreas there is an addition defect which measu res 1.5 by 1.3 cm and is isodense to the remainder of the pancreas on all sequences. It is just abov e the level of the patent splenic vein. SPLEEN: Spleen is not enlarged. No obvious intrasplenic lesions. Splenic and portal veins are paten t. ADRENALS: There are no significant adrenal masses. KIDNEYS:Both kidneys exhibit normal size. No solid renal masses. No calculi nor hydronephrosis.. T here is a solitary nondilated ureter on each side. ABDOMINAL AORTA: Abdominal aorta is not enlarged. LYMPH NODES:There is no retroperitoneal nor paraaortic adenopathy. ABDOMINAL WALL: No evidence of significant anterior abdominal wall nor inguinal hernia. GI: There is no evidence of bowel obstruction, free air, nor abscess. PELVIS: GI: Appendix is not seen. There is no obvious evidence of appendicitis.No evidence of sigmoid divert iculitis. LYMPH NODES: There is no intrapelvic nor inguinal adenopathy. REPRODUCTIVE: Uterus and adnexal regions appear unremarkable. URINARY BLADDER: No calculi nor obvious masses evident OSSEOUS: No significant osseous lesions. Degenerative disc disease at L2-3 noted. IMPRESSION: 1. No significant findings in the kidneys. Solitary nondilated ureter on each side. 2. No obvious abnormality in the urinary bladder 3. Incidentally noted is a 1.5 x 1.3 cm possible mass off the posterior aspect of the pancreatic body . This is isodense to pancreas parenchyma on all runs, both pre and post contrast. Therefore there is a possibly that this may just represent present variant extension of the gland. However, given th e possible ports of this finding I recommend follow-up MRI be performed without and with IV contrast. 4. The gallbladder surgically absent. The biliary tree is not dilated. RADIATION DOSE DELIVERED: 4,470.47mGy.cm Total DLP DATA REPOSITORY: All CT scans at this facility are submitted to the National Radiology Data Registry (NRDR) Dose Index Registry (DIR) with the [employer] ([employer]). RADIATION OPTIMIZATION: All CT scans at this facility use at least one of these dose optimization te chniques: automated exposure control; mA and/or kV adjustment per patient size (includes targeted exa ms where dose is matched to clinical indication); or iterative reconstruction.
[2021-02-15] MEDS: Omnipaque 350 MG/ML 100 ML BTL IJ (09:26)
[2021-02-15] MEDS: Normal Saline - Diluent 50 ML VIAL IV ×2 (09:27)
[2021-02-15] MEDS: Normal Saline Flush 10 ML SYR IVP (09:28)
== END 2021-02-15 01:55 ==
PROVIDERS: PCP Family Medicine; Visit Provider Nurse Practitioner Gerontology
DX: N39.0 Urinary tract infection, site not specified (principal); M32.19 Other organ or system involvement in systemic lupus erythematosus; K86.89 Other specified diseases of pancreas; Z90.49 Acquired absence of other specified parts of digestive tract
CPT/HCPCS: 74178; J3490

== ENCOUNTER 2021-02-26 14:34 | Emergency (ER) | payer MEDICAID, SELFPAY ==
[2021-02-26 14:52] VITALS: BP 142/107; PULSE 100; RESP 24; TEMP 36.5; O2SAT 98
--- NOTE | 2021-02-26 15:19 | ED.GENADUL_ITS ---
Discharge Plan Disposition Patient Disposition: HOME Condition: Stable Discharge Details Clinical Impression: UTI (urinary tract infection) Primary Care Provider: Panfilo Walter ED Provider: Destinee Patterson [place] Meds and New Rx's Prescriptions: New cephalexin 500 mg capsule 500 mg PO QID 7 Days Qty: 28 RF: 0 Continued methotrexate (PF) 10 mg/0.2 mL auto-injector 30 mg subcut QWEEK RF: 0 hydrocodone-acetaminophen 5-325 mg tablet 1 tab PO BID MDD 2 tablets/day PRN (Reason: pain) Qty: 10 RF: 0 mirtazapine [Remeron] 15 mg tablet 15 mg PO DAILY Qty: 30 RF: 2 dextroamphetamine-amphetamine [Adderall] 30 mg tablet 30 mg PO BID MDD 2 PRN (Reason: add) Qty: 56 RF: 0 esomeprazole magnesium [Nexium] 40 mg capsule,delayed release(DR/EC) 40 mg PO DAILY Qty: 90 RF: 3 diltiazem HCl 240 mg capsule,extended release 24hr 240 mg PO DAILY Qty: 90 RF: 3 escitalopram oxalate 10 mg tablet 20 mg PO DAILY RF: 0 ergocalciferol (vitamin D2) 400 UNIT tablet 1 tab PO PM RF: 0 ergocalciferol (vitamin D2) 50,000 UNIT capsule 1 cap PO .QWEEK Qty: 6 RF: 4 Excedrin Migraine 1 EACH tablet 2 tab PO BID PRN RF: 0 Folbic 1 EACH tablet 1 tab-cap PO DAILY RF: 0 cyanocobalamin (vitamin B-12) 1,000 MCG/1 ML solution 1 ml IM MONTHLY Qty: 3 RF: 4 fexofenadine-pseudoephedrine [Tracey-D 24 Hour] 1 EACH tablet extended release 24 hr 1 tab-cap PO DAILY PRNRF: 0 hydroxychloroquine [Plaquenil] 200 mg tablet 400 mg PO DAILY Qty: 180 RF: 3 magnesium 250 mg Tablet 400 mg PO DAILY RF: 0 No Action ketorolac 30 mg/mL (1 mL) solution 60 mg IM ONCE Qty: 2 RF: 0 ondansetron HCl (PF) 4 mg/2 mL solution 4 mg IM ONCE Qty: 2 RF: 0 Discharge Instructions Instructions: Urinary Tract Infection in Women (ED) Additional Instructions: Your labs are concerning for recurrent urinary tract infection. Please encourage hydration. You may continue with Tylenol and ibuprofen as needed for discomfort. Please take the antibiotics as prescribed. Even if symptoms improve, please take the entire course. Please follow-up with your urology team for reevaluation within the next 1 to 2 weeks. Please keep your upcoming appointment on for advanced imaging. If you develop any new or worsening symptoms please seek care urgently once again. Referrals: Rabia Roman DNP [NURSE PRACTITIONER] - Panfilo Walter MD [Primary Care Provider] - Discharge Data Discharge Date/Time-TO BE ENTERED AT DEPARTURE: 02/26/21 17:43 Medical Decision Making <Tessy Fraser - Last Filed: 02/27/21 08:23> 45-year-old female presents to the ER with chief complaint of fever, body aches, headache which got worse last night. Patient reports vomiting x2 yesterday. She reports T-max fever at home of 104. She reports taking Tylenol and ibuprofen [id number]. She does have some right CVA tenderness and right lower quadrant abdominal pain. She was recently by urology on 21 February. She recently had a CT abdomen pelvis on February 15 which shows a 1.5 x 1.3 cm possible mass which patient reports that she has an MRI scheduled on to further evaluate. She denies any diarrhea. She is afebrile upon arrival. She last took ibuprofen at 3:00 this morning. She has a past medical history of hyperlipidemia, obesity, depressive disorder, GERD, lupus, fibromyalgia, recurrent UTI, pyelonephritis. Work-up ordered including CBC, CMP, urinalysis, lactate, lipase, blood cultures x2. 1 L normal saline and a gram of Tylenol IV piggyback ordered. Imaging not ordered at this time due to MRI scheduled for and recent Abd CT on 02/15. Care handed off to oncoming provider ASH Golden pending lab work, and further evaluation. <ASH Mcconnell - Last Filed: 02/27/21 12:59> Care transitioned to myself from Tessy Fraser, [employer] O[employer]ATOR please see her initial note regarding history, presentation and exam. At the time I assumed care, labs pending. In brief, patient is here for fevers and right sided flank pain. She has had several UTIs historically. Had imaging last week. She has been afebrile here. REceived APAP IV to help with discomfort. She is receiving IV fluids. Labs reviewed. Leukocytosis with WBC of 12.7. Lactate WNL. CMP and lipase without signficant abnormality. UA is concerning for UTI. Reviewed patient's chart. She has had recurrent UTIs historically. Urology is concerned for lupus nephritis. Dysuria prompted patient to have recent CT scan. She is scheduled for an MRI on for evaluation of pancreatic mass incidentally noted on CT. Patient states that this does feel similar to when she has had pyelonephritis historically. Patient does not appear systemically ill, has been afebrile here. She received fluids while here. She is reporting significant pain despite having the IV acetaminophen. Offered NSAID which patient has declined. She would like to build to go home and take her hydrocodone which she states she has at home. Patient microbiology from her recent urine culture most recently appeared contaminated. Historically, she grew out Klebsiella which was resistant to ampicillin but sensitive elsewhere. Patient requesting discharge. Started on Keflex. Encouraged hydateion. Encouraged close f/u. She advised that she will f/u with her PCP tomorrow. Declined any further analgesics and would like to go home to use her hydrocodone. I advised that NSAIDS can work well for pain as well. Strict return precautions were discussed. All of her questions and concerns were addressed, she is in agreeement with this plan. HPI <Tessy Fraser - Last Filed: 02/27/21 08:23> General Mode of arrival: ambulatory . Date/Time Provider Initiated Documentation: 02/26/21 14:57 . Limitations to Documentation: no limitations . Information obtained by: patient, RN notes reviewed and old records reviewed . HPI Narrative: 45-year-old female presents to the ER with chief complaint of fever, body aches, headache which got worse last night. Patient reports vomiting x2 yesterday. She reports T-max fever at home of 104. She reports taking Tylenol and ibuprofen [id number]. She does have some right CVA tenderness and right lower quadrant abdominal pain. She was recently by urology on 21 February. She recently had a CT abdomen pelvis on February 15 which shows a 1.5 x 1.3 cm possible mass which patient reports that she has an MRI scheduled on to further evaluate. She denies any diarrhea. She is afebrile upon arrival. She last took ibuprofen at 3:00 this morning. She has a past medical history of hyperlipidemia, obesity, depressive disorder, GERD, lupus, fibromyalgia, recurrent UTI, pyelonephritis. Related Data Home Medications Medication Instructions Recorded Confirmed Excedrin Migraine 2 tab PO BID PRN 07/22/12 02/26/21 ergocalciferol (vitamin D2) 1 cap PO .QWEEK #6 cap 07/22/12 02/26/21 ergocalciferol (vitamin D2) 1 tab PO PM 07/22/12 02/26/21 Folbic 1 tab-cap PO DAILY tab-cap 06/11/13 02/26/21 cyanocobalamin (vitamin B-12) 1 ml IM MONTHLY #3 vial 07/03/17 02/26/21 fexofenadine-pseudoephedrine 1 tab-cap PO DAILY PRN tab-cap 08/05/17 02/26/21 [Tracey-D 24 Hour] magnesium 400 mg PO DAILY 01/16/18 02/26/21 hydroxychloroquine 200 mg tablet 400 mg PO DAILY #180 t 02/08/20 02/26/21 hydrocodone 5 mg-acetaminophen 325 1 tab PO BID PRN #10 tab MDD 2 12/06/20 02/26/21 mg tablet tablets/day methotrexate (PF) 10 mg/0.2 mL 30 mg SUBCUT QWEEK ml 12/06/20 02/26/21 subcutaneous auto-injector diltiazem HCl 240 mg 240 mg PO DAILY #90 cap 01/02/21 02/26/21 capsule,extended release 24 hr escitalopram oxalate 10 mg tablet 20 mg PO DAILY tab 01/02/21 02/26/21 Nexium 40 mg capsule,delayed 40 mg PO DAILY #90 cap NS 02/02/21 02/26/21 release dextroamphetamine-amphetamine 30 30 mg PO BID PRN #56 tab-cap MDD 2 02/02/21 02/26/21 mg tablet mirtazapine 15 mg tablet 15 mg PO DAILY #30 tab 02/02/21 02/26/21 cephalexin 500 mg PO QID 7 Days #28 cap 02/26/21 Previous Rx's Medication Instructions Recorded cyanocobalamin (vitamin B-12) 1 ml IM MONTHLY #3 vial 07/03/17 hydroxychloroquine 200 mg tablet 400 mg PO DAILY #180 t 02/08/20 hydrocodone 5 mg-acetaminophen 325 1 tab PO BID PRN #10 tab MDD 2 12/06/20 mg tablet tablets/day diltiazem HCl 240 mg 240 mg PO DAILY #90 cap 01/02/21 capsule,extended release 24 hr Nexium 40 mg capsule,delayed 40 mg PO DAILY #90 cap NS 02/02/21 release dextroamphetamine-amphetamine 30 30 mg PO BID PRN #56 tab-cap MDD 2 02/02/21 mg tablet mirtazapine 15 mg tablet 15 mg PO DAILY #30 tab 02/02/21 cephalexin 500 mg PO QID 7 Days #28 cap 02/26/21 Allergies Allergy/AdvReac Type Severity Reaction Status Date / Time Sulfa (Sulfonamide AdvReac Intermediate LUPUS Verified 02/26/21 18:07 Antibiotics) tetracycline AdvReac Mild vomiting Verified 02/26/21 18:07 codeine AdvReac Unknown VOMITING Verified 02/26/21 18:07 Opioids - Morphine Analogues AdvReac Unknown TACHYCARDIA Verified 02/26/21 18:07 General Stated Complaint: Fever TREVA: 3 Review of Systems <TessySongtradrton Help[employer]Now Last Filed: 02/27/21 08:23> All systems reviewed & are unremarkable except as noted in HPI and below Constitutional Constitutional: Reports body ache(s), Reports chills, Reports fatigue, Reports fever(s) and Reports headache(s) ENT Ears, Nose, Mouth, and Throat: Reports headache(s) Cardiovascular Cardiovascular: Denies chest pain and Denies dyspnea Respiratory Respiratory: Denies cough and Denies dyspnea Gastrointestinal Gastrointestinal: Reports abdominal pain, Denies hematochezia, Denies constipation, Denies diarrhea and Denies vomiting Genitourinary Genitourinary: Reports as per HPI and Reports flank pain Neurologic Neurologic: Reports headache(s) Endocrine Endocrine: Reports fatigue PFSH <TessySongtradrton [facility]Now [facility] Filed: 02/27/21 08:23> Active Problem List UTI (urinary tract infection) (Acute) Pancreatic mass (Acute) Achilles tendon disorder (Acute) Flushing (Acute) Pyelonephritis of right kidney (Acute) Occipital neuralgia (Acute) Neck pain, musculoskeletal (Acute) Exertional shortness of breath (Acute) Tachycardia (Acute) Hyperlipidemia (Chronic) Chronic fatigue syndrome (Acute) Recurrent UTI (Acute) Medial epicondylitis, left elbow (Acute) Fibromyalgia (Chronic) Mild intermittent asthma (Acute) Vitamin D deficiency (Acute) Endometriosis (Chronic) Systemic lupus erythematosus (Chronic) Vitamin B 12 deficiency (Chronic) Major depressive disorder (Chronic) GERD with esophagitis (Acute) Medical History Pyloric ulcer In 2019 Serrated adenoma of colon In 2010 Surgical History History of arthroscopic knee surgery Hx of esophagogastroduodenoscopy (12/07/18) S/P cholecystectomy (12/11/11) S/P colonoscopy (01/16/18) S/P medial meniscus repair of right knee Family History FAMILY HX Heart disease Mother Endometriosis hyst at 26 Sister Endometriosis diagnosed by and sxs Grandmother SLE (systemic lupus erythematosus) unknown age, but had renal dz Social History Smoking/Tobacco Use Status: Never Smoking risk assessment performed?: Yes Alcohol Intake: current Alcohol Intake frequency: a few times a week Alcohol type: other Drug use: Never Substance use type: does not use Household members: significant other Housing: apartment Number of Children: 2 current occupation: Nurse What type of physical activity do you participate in: independent ambulation Do you feel safe at home: Yes Do you feel safe in your relationship?: Yes Exam <Tessy Fraser - Last Filed: 02/27/21 08:23> Narrative Exam Narrative: Constitutional: Alert and oriented x3. Appears stated age. Obese body habitus. Head: Normocephalic, no trauma. Eyes: Pupils PERRL, Red reflex noted, EOM's intact. Eyelids symmetrical without lesions, discharge, or swelling. ENT: Bilateral TM's WNL, External ear normal to inspection, no mastoid TTP, swelling, or erythema, Nasal turbinates WNL, no nasal discharge. Normal dentition, Posterior pharynx WNL, no exudate. Chest: RRR, Normal S1, S2, distal pulses intact. Resp: Lungs clear to auscultation bilaterally, no wheezes, rales, or rhonchi. Abdomen: Soft, non-distended, Normoactive bowel sounds all 4 quads. Right lower quadrant abdominal pain with palpation. : Right CVA tenderness with palpation. Musculoskeletal: Normal gait, 5/5 strength to all four extremities. Skin: No suspicious rashes or lesions. Capillary refill less than 2 sec. Neurologic: Cranial nerves II-XII intact. Alert and oriented x 3. Motor: No d eficits noted. Sensory: Intact bilaterally all 4 extremities. Reflexes: DTR's intact bilaterally.. Hematologic/Lymphatic: No ecchymosis, no lymphadenopathy. Course <Tessy Fraser - Last Filed: 02/27/21 08:23> Vital Signs Vital signs: Vital Signs Temperature 36.5 C 02/26/21 14:52 Pulse 100 H 02/26/21 14:52 Respiratory Rate 24 02/26/21 14:52 Blood Pressure 142/107 H 02/26/21 14:52 Pulse Oximetry 98 02/26/21 14:52 Temperature 36.5 C 02/26/21 14:52 Temperature Source Temporal Artery Scan 02/26/21 14:52 Pulse 100 H 02/26/21 14:52 Respiratory Rate 24 02/26/21 14:52 Respiratory Effort 02/26/21 14:56 Blood Pressure 142/107 H 02/26/21 14:52 Blood Pressure Position Sitting 02/26/21 14:52 Pulse Oximetry 98 02/26/21 14:52 Oxygen Delivery Method Room Air 02/26/21 14:52 Oxygen Flow Rate 0 02/26/21 14:52 Pain Level 10 02/26/21 14:52 Lab/Test Results Lab/Test Results: 02/26/21 15:00 Blood Blood Culture - Pending 02/26/21 15:00 Blood Blood Culture - Pending Sign Out <Tessy Fraser - Last Filed: 02/27/21 08:23> Sign Out Data: Sign Out Comment: Body aches, headache and fever and abdominal pain. Pending lab and urine results. Right CVA tenderness right side abdominal tenderness. Had a abdominal CT on 1117 is scheduled for an MRI to evaluate pancreatic mass on . Liter of normal saline and a gram of Tylenol ordered IV. Last updated by Tessy Fraser at 02/26/21 16:09
[2021-02-26 16:05] LABS: Source Nasal/Nares
[2021-02-26 16:06] LABS: Abs Immature Grans 0.04 10^3/uL (0.0-0.06); Absolute Basophil Count 0.03 10^3/uL (0.0-0.2); Absolute Monocyte Count 1.12 10^3/uL (0.1-0.8); Basophils % 0.2; Eosinophils % 0.2; HCT 37.5 % (36.0-46.0); HGB 12.2 g/dL (11.2-15.7); Immature Grans % 0.3; Lymphocytes % 4.6; MCHC 32.5 % (32.0-36.0); MCV 92.4 fL (80-95); MPV 10.1 fL (8.0-11.0); Monocytes % 8.8; Neutrophils % 85.9; Nucleated RBC 0 %; Platelet Count 294 10^3/uL (130-400); RBC 4.06 10^6/uL (3.93-5.22); RDW 12.2 % (11.7-14.6); RDW-SD 41.7 fL; WBC 12.74 10^3/uL (4.4-10.8)
[2021-02-26 16:08] LABS: Absolute Eosinophil Count 0.03 10^3/uL (0.0-0.7); Absolute Lymphocyte Count 0.59 10^3/uL (1.2-3.4); Absolute Neutrophil Count 10.94 10^3/uL (1.2-6.7)
[2021-02-26 16:09] LABS: Lactate 0.8 mmol/L (0.6-1.4)
[2021-02-26 16:28] LABS: ALT 18 U/L (14-59); AST 11 U/L (15-37); Albumin 3.3 g/dL (3.4-5.0); Alkaline Phosphatase 83 U/L (46-116); Anion Gap 10.1 mmol/L (3-11); BUN 11 mg/dL (7-18); Bilirubin, Total 0.6 mg/dL (0.2-1.0); CO2 24.9 mmol/L (21.0-32.0); CREATININE 0.8 mg/dL (0.55-1.02); Calcium 8.6 mg/dL (8.5-10.1); Chloride 101 mmol/L (98-107); Glucose 94 mg/dL (74-106); Potassium 3.5 mmol/L (3.5-5.1); Sodium 136 mmol/L (136-145); Total Protein 7.6 g/dL (6.4-8.2)
[2021-02-26] MEDS: ACETAMINOPHEN 1,000 MG/100 ML BTL 400 MG IVPB (16:29)
[2021-02-26] MEDS: Normal Saline 1,000 ML 1000 ML IV (16:30)
[2021-02-26] MEDS: Normal Saline Flush 10 ML SYR IVP (16:30)
[2021-02-26 16:31] LABS: Lipase 32 U/L (73-393); Magnesium 1.8 mg/dL (1.8-2.4)
[2021-02-26 16:32] LABS: Bilirubin Negative (Negative); Blood Trace-intact (Negative); Clarity Sl Cloudy (Clear); Glucose Negative (Negative); Ketones 40 mg/dL (Negative); Leukocyte Esterase Small (Negative); Nitrite Negative (Negative); Urobilinogen 0.2 EU/dL (Up TO 0.2); pH 5.5 (5-8)
[2021-02-26 16:43] LABS: Bacteria Many HPF (Negative); C & S Indicated? Yes; Casts Negative LPF (Negative); Crystals Negative HPF (Negative); Epithelial Cells Few HPF (Negative); Mucus Negative (Negative); RBC 0-2 HPF (0-2)
[2021-02-26 17:00] LABS: COVID-19 PCR Negative (Negative)
[2021-02-26] MEDS: Cephalexin 500 MG CAP PO (17:34)
--- NOTE | 2021-02-26 18:01 | NUR.NOTE ---
At approximately 1630 this nurse went in and found patient lying on floor of ER 10 wrapped in blankets. When this nurse asked her why, she stated she could not stay in the reclining chair any more. Apologized to patient and advised her that we had no open beds at this time due to a high volume of critically ill patients that had presented to the ER in a short amount of time. Patient c/o of pain and given IV Tylenol. Patient stated that this would do nothing for her and stated that she should have taken her at home pain meds. This nurse asked her what those meds were and patient stated Hydrocodone. This nurse advised the patient's provider of her discomfort and the provider offered her IV NSAIDS which the patient declined. Patient requested to leave a short time later and was given her first dose of antibiotic for her UTI and discharged. Advised patient to please return if she needed to.
== END 2021-02-26 17:43 | disposition home or self-care (01) ==
PROVIDERS: Registered Nurse Emergency; Emergency Provider Physician Assistant; PCP Family Medicine
DX: N39.0 Urinary tract infection, site not specified (principal); B96.20 Unspecified Escherichia coli [E. coli] as the cause of diseases classified elsewhere; R10.31 Right lower quadrant pain; Z87.440 Personal history of urinary (tract) infections; Z20.822 Contact with and (suspected) exposure to COVID-19; Z03.818 Encounter for observation for suspected exposure to other biological agents ruled out
CPT/HCPCS: 36415; 80053; 83690; 87040; 87077; 87635; 96361; 96365; 99284; 81003; 81015; 83605; 83735; 85025; 87086; 87186; 99283; J0131

== ENCOUNTER → 2021-03-05 00:40 | Outpatient (CLI) | payer OTHER, MEDICAID, SELFPAY ==
--- NOTE | 2021-03-05 06:45 | DI.MRI_ITS ---
Exam(s) MR ABDOMEN WO/W EXAM: MR ABDOMEN WO/W CLINICAL HISTORY: pancreatic mass on CT,K86.89 TECHNIQUE: Multiplanar multisequence MRI was performed with both pre and post contrast infused seque nces. Contrast injected sequences were performed following IV injection of 20 cc of Dotarem. COMPARISON: CT CT ABDOMEN PELVIS WO/W from 02/15/[address] ABDOMEN PELVIS WO/W from 02/15/2021 FINDINGS: VISUALIZED LUNG BASES: No pleural effusions evident. There is no ascites evident. LIVER: Mild hepatic steatosis. No discrete focal hepatic lesions. No dilated intrahepatic ducts. BILIARY: The gallbladder is surgically absent. The CBD is not dilated. PANCREAS: The previously described 15 x 13 millimeter finding exophytic off the posterior aspect of t he body of the pancreas is noted, as seen on the recent CT scan. It is located just above the splenic vein at this level. This is isointense to adjacent pancreatic parenchyma on all sequences including post-contrastinjection. Pancreatic duct is not dilated at this level. MRCP at this level is unremarka ble. There is no regional adenopathy and no vascular encasement.. SPLEEN: Spleen is not enlarged and there are no intrasplenic lesions.Splenic and portal veins are pat ent ADRENALS: There are no significant adrenal masses. KIDNEYS: No solid renal masses. No hydronephrosis.No cysts evident. ABDOMINAL AORTA: Not enlarged and there is no significant para-aortic adenopathy. ANTERIOR ABDOMINAL WALL/GI: There is no evidence of significant anterior abdominal wall hernia in the field of view of this study.Is no evidence of obvious bowel obstruction. OSSEOUS: There are no lytic osseous lesions in the field of view of this study. IMPRESSION: 1. There is a 15 x 13 millimeter well-defined exophytic tissue off the posterior aspect of the body o f the pancreas, this correspond to the finding on the recent CT scan. This finding is isointense to t he remainder of the pancreas on all sequences and enhances in similar fashion to the remainder of the pancreas. Pancreatic duct is not dilated. There is no regional adenopathy. No adjacent vascular enca sement. I suspect that this is possibly a variant of normal such as accessory pancreatic tissue. However, giv en the slight possibility that this may represent significant pathology I recommend repeating the CT or MRI in 3 months time. DATA REPOSITORY:
[2021-03-05] MEDS: Gadoterate meglumine 20 ML VIAL IVP (09:01)
== END ==
PROVIDERS: PCP Family Medicine; Visit Provider Family Medicine
DX: K86.89 Other specified diseases of pancreas (principal); R93.5 Abnormal findings on diagnostic imaging of other abdominal regions, including retroperitoneum
CPT/HCPCS: 74183

== ENCOUNTER 2021-07-23 18:42 | Emergency (ER) | payer OTHER, MEDICAID, SELFPAY ==
[2021-07-23] VITALS (8 sets, daily range): BP systolic 113–121; BP diastolic 74–83; PULSE 83–92; RESP 15–30; TEMP 38.1; O2SAT 92–96
--- NOTE | 2021-07-23 18:45 | RT.EKG_ITS ---
APPROVED REPORT Exam: Resting ECG Reason for Exam: chest pain Patient Location: E HR:86 bpm ECG Measurements Heart Rate 86 AXIS WI 133 P 60 QRSd 92 QRS 52 QT 386 T 1 QTc 461 Conclusion Sinus rhythm...normal P axis, V-rate 60- 99 sinus rhythm, normal axis, normal inervals, consider incomplete RBBB
--- NOTE | 2021-07-23 19:00 | DI.CT_ITS ---
Exam(s) CT CHEST PE CTA EXAM: CT CHEST PE CTA CLINICAL HISTORY: chest pain radiating to back, pleuritic. TECHNIQUE: Imaging Protocol: Axial CT angiography was performed with multi-slice acquisition and mu lti-planar and/or 3D reconstructions. CONTRAST MATERIAL: Intravenous: Omnipaque 350 Contrast volume:170 mL COMPARISON: CT CT ABDOMEN PELVIS WO/W from 02/15/2021 FINDINGS: Tracheobronchial tree: Patent where visualized. Pulmonary parenchyma: There is a multifocal infiltrate involving the right upper lobe, right lower lo be and left lower lobe. No architectural distortion. Pulmonary Arteries: No evidence of filling defect to suggest pulmonary emboli. Mediastinum and Emily: No dominant adenopathy or fluid collection. The esophagus is unremarkable. Visualized thyroid gland: Unremarkable. Pleura: No effusion or pneumothorax. Heart: The heart is not dilated. No coronary artery calcifications are seen. No pericardial effusion. Aorta: Thoracic aorta non-dilated. No evidence of dissection. Upper abdomen: Status post cholecystectomy. Soft tissues: Unremarkable. Bones: Within normal limits for the patient's age. IMPRESSION: 1. No evidence of pulmonary embolism, thoracic aortic dissection or aneurysm. 2. Multifocal infiltrate suspicious for pneumonia. RADIATION DOSE DELIVERED: 1,136.16mGy.cm Total DLP DATA REPOSITORY: All CT scans at this facility are submitted to the National Radiology Data Registry (NRDR) Dose Index Registry (DIR) with the [employer] (A[employer]). RADIATION OPTIMIZATION: All CT scans at this facility use at least one of these dose optimization te chniques: automated exposure control; mA and/or kV adjustment per patient size (includes targeted exa ms where dose is matched to clinical indication); or iterative reconstruction.
--- NOTE | 2021-07-23 19:13 | ED.GENADUL_ITS ---
Discharge Plan Disposition Patient Disposition: HOME Condition: Improving Discharge Details Clinical Impression: Pneumonia Primary Care Provider: Panfilo Walter ED Provider: Renan Marcus Home Meds and New Rx's Prescriptions: New amoxicillin-pot clavulanate 875-125 mg tablet 1 tab PO BID 5 Days Qty: 10 0RF azithromycin 250 mg tablet 250 mg PO DAILY 4 Days Qty: 4 0RF Rx Instructions: start on day 2 of therapy No Action methotrexate (PF) 10 mg/0.2 mL auto-injector 30 mg subcut QWEEK 0RF hydrocodone-acetaminophen 5-325 mg tablet 1 tab PO BID MDD 2 tablets/day PRN (Reason: pain) Qty: 10 0RF mirtazapine [Remeron] 15 mg tablet 15 mg PO DAILY Qty: 30 2RF esomeprazole magnesium [Nexium] 40 mg capsule,delayed release(DR/EC) 40 mg PO DAILY Qty: 90 3RF diltiazem HCl 240 mg capsule,extended release 24hr 240 mg PO DAILY Qty: 90 3RF escitalopram oxalate 10 mg tablet 20 mg PO DAILY 0RF Rx Instructions: ondansetron HCl (PF) 4 mg/2 mL solution 4 mg IM ONCE Qty: 2 0RF ergocalciferol (vitamin D2) 400 UNIT tablet 1 tab PO PM 0RF ergocalciferol (vitamin D2) 50,000 UNIT capsule 1 cap PO .QWEEK Qty: 6 4RF Excedrin Migraine 1 EACH tablet 2 tab PO BID PRN 0RF Folbic 1 EACH tablet 1 tab-cap PO DAILY 0RF cyanocobalamin (vitamin B-12) 1,000 MCG/1 ML solution 1 ml IM MONTHLY Qty: 3 4RF fexofenadine-pseudoephedrine [Tracey-D 24 Hour] 1 EACH tablet extended release 24 hr 1 tab-cap PO DAILY PRN0RF hydroxychloroquine [Plaquenil] 200 mg tablet 400 mg PO DAILY Qty: 180 3RF fluconazole [Diflucan] 150 mg tablet 150 mg PO ONCE PRN (Reason: monilia) Qty: 1 2RF dextroamphetamine-amphetamine [Adderall] 30 mg tablet 30 mg PO BID MDD 2 PRN (Reason: add) Qty: 56 0RF Rx Instructions: Take 1 pill twice a day, administer doses at least 4-6 hours apart magnesium 250 mg Tablet 400 mg PO DAILY 0RF Discharge Instructions Instructions: Pneumonia (ED) Additional Instructions: Please be seen by your primary care physician. Please return to the emergency department for any worsening symptoms specifically worsening trouble breathing uncontrolled fevers chills fatigue or signs of dehydration. Medical Decision Making 46-year-old female history of lupus, presents with body aches cough nonproductive chest pain pleuritic in nature rating to back over the past several days, not hypoxic nontoxic however does appear fatigued, lungs clear bilaterally no peripheral edema likely viral syndrome versus pneumonia versus less likely ACS versus must consider PE versus lupus flare. Labs and imaging fluids anti-inflammatory. CT revealing bilateral infiltrates concerning for infectious process. Empiric antibiotics started for community-acquired pneumonia. Patient feels well to go home we will continue oral antibiotic therapy as an outpatient. Home care instructions and return precautions given HPI General Date/Time Provider Initiated Documentation: 07/23/21 18:51 . HPI Narrative: 46-year-old female history of lupus presents with subjective fevers cough pleuritic chest pain rating to her back for the past several days, nonproductive cough, body aches, endorses taking 2 home COVID test that were negative, no nausea or vomiting no recent travel no recent hospitalization. Related Data Home Medications Medication Instructions Recorded Confirmed [id number]-nidycbyh 250 2 tab PO BID PRN 07/22/12 07/23/21 mg-250 mg-65 mg tablet (Excedrin Migraine) ergocalciferol (vitamin D2) 1,250 1 cap PO .QWEEK #6 cap 07/22/12 07/23/21 mcg (50,000 unit) capsule ergocalciferol (vitamin D2) 10 mcg 1 tab PO PM 07/22/12 07/23/21 (400 unit) tablet folic acid-vit B6-vit B12 2.5 1 tab-cap PO DAILY tab-cap 06/11/13 07/23/21 mg-25 mg-2 mg tablet (Folbic) cyanocobalamin (vitamin B-12) 1 ml IM MONTHLY #3 vial 07/03/17 07/23/21 1,000 mcg/mL injection solution fexofenadine-pseudoephedrine ER 1 tab-cap PO DAILY PRN tab-cap 08/05/17 07/23/21 180 mg-240 mg tablet,ext.release 24 hr (Tracey-D 24 Hour) magnesium 250 mg tablet 400 mg PO DAILY 01/16/18 07/23/21 hydroxychloroquine 200 mg tablet 400 mg PO DAILY #180 t 02/08/20 07/23/21 (Plaquenil) hydrocodone 5 mg-acetaminophen 325 1 tab PO BID PRN #10 tab MDD 2 12/06/20 07/23/21 mg tablet tablets/day methotrexate (PF) 10 mg/0.2 mL 30 mg SUBCUT QWEEK ml 12/06/20 07/23/21 subcutaneous auto-injector diltiazem HCl 240 mg 240 mg PO DAILY #90 cap 01/02/21 07/23/21 capsule,extended release 24 hr escitalopram oxalate 10 mg tablet 20 mg PO DAILY tab 01/02/21 07/23/21 Nexium 40 mg capsule,delayed 40 mg PO DAILY #90 cap NS 02/02/21 07/23/21 release (esomeprazole magnesium) mirtazapine 15 mg tablet (Remeron) 15 mg PO DAILY #30 tab 02/02/21 07/23/21 fluconazole 150 mg tablet 150 mg PO ONCE PRN #1 tab 03/16/21 07/23/21 (Diflucan) dextroamphetamine-amphetamine 30 30 mg PO BID PRN #56 tab-cap MDD 2 07/16/21 07/23/21 mg tablet (Adderall) amoxicillin 875 mg-potassium 1 tab PO BID 5 Days #10 tab 07/23/21 clavulanate 125 mg tablet azithromycin 250 mg tablet 250 mg PO DAILY 4 Days #4 tab 07/23/21 Previous Rx's Medication Instructions Recorded cyanocobalamin (vitamin B-12) 1 ml IM MONTHLY #3 vial 07/03/17 1,000 mcg/mL injection solution hydroxychloroquine 200 mg tablet 400 mg PO DAILY #180 t 02/08/20 (Plaquenil) hydrocodone 5 mg-acetaminophen 325 1 tab PO BID PRN #10 tab MDD 2 12/06/20 mg tablet tablets/day diltiazem HCl 240 mg 240 mg PO DAILY #90 cap 01/02/21 capsule,extended release 24 hr Nexium 40 mg capsule,delayed 40 mg PO DAILY #90 cap NS 02/02/21 release (esomeprazole magnesium) mirtazapine 15 mg tablet (Remeron) 15 mg PO DAILY #30 tab 02/02/21 fluconazole 150 mg tablet 150 mg PO ONCE PRN #1 tab 03/16/21 (Diflucan) dextroamphetamine-amphetamine 30 30 mg PO BID PRN #56 tab-cap MDD 2 07/16/21 mg tablet (Adderall) amoxicillin 875 mg-potassium 1 tab PO BID 5 Days #10 tab 07/23/21 clavulanate 125 mg tablet azithromycin 250 mg tablet 250 mg PO DAILY 4 Days #4 tab 07/23/21 Allergies Allergy/AdvReac Type Severity Reaction Status Date / Time Sulfa (Sulfonamide AdvReac Intermediate LUPUS Verified 07/23/21 19:02 Antibiotics) tetracycline AdvReac Mild vomiting Verified 07/23/21 19:02 codeine AdvReac Unknown VOMITING Verified 07/23/21 19:02 Opioids - Morphine Analogues AdvReac Unknown TACHYCARDIA Verified 07/23/21 19:02 General Stated Complaint: Chest Pain TREVA: 2 Review of Systems Narrative: Review of Systems Constitutional: negative Eyes: negative ENT: negative Cardiovascular: negative Respiratory: negative Gastrointestinal: negative : negative Musculoskeletal: negative Skin: negative Neurologic: negative Psych: negative PFSH All Active Problems (Updated 07/23/21 @ 22:17 by Renan Marcus MD) Pneumonia (Acute) Achilles tendinitis (Acute) Abdominal pain (Acute) Pyelonephritis (Acute) UTI (urinary tract infection) (Acute) Pancreatic mass (Acute) Achilles tendon disorder (Acute) Flushing (Acute) Pyelonephritis of right kidney (Acute) Occipital neuralgia (Acute) Neck pain, musculoskeletal (Acute) Exertional shortness of breath (Acute) Tachycardia (Acute) Hyperlipidemia (Chronic) Chronic fatigue syndrome (Acute) due to Lupus Recurrent UTI (Acute) Medial epicondylitis, left elbow (Acute) Steroid injection: 01/31/2020 Fibromyalgia (Chronic) Mild intermittent asthma (Acute) Vitamin D deficiency (Acute) Endometriosis (Chronic) Systemic lupus erythematosus (Chronic) [place]ed by Dr. Main [place] [facility] Vitamin B 12 deficiency (Chronic) Major depressive disorder (Chronic) GERD with esophagitis (Acute) Active Problem List UTI (urinary tract infection) (Acute) Pancreatic mass (Acute) Achilles tendon disorder (Acute) Flushing (Acute) Pyelonephritis of right kidney (Acute) Occipital neuralgia (Acute) Neck pain, musculoskeletal (Acute) Exertional shortness of breath (Acute) Tachycardia (Acute) Hyperlipidemia (Chronic) Chronic fatigue syndrome (Acute) Recurrent UTI (Acute) Medial epicondylitis, left elbow (Acute) Fibromyalgia (Chronic) Mild intermittent asthma (Acute) Vitamin D deficiency (Acute) Endometriosis (Chronic) Systemic lupus erythematosus (Chronic) Vitamin B 12 deficiency (Chronic) Major depressive disorder (Chronic) GERD with esophagitis (Acute) Medical History Pyloric ulcer In 2019 Serrated adenoma of colon In 2010 Surgical History History of arthroscopic knee surgery Hx of esophagogastroduodenoscopy (12/07/18) S/P cholecystectomy (12/11/11) S/P colonoscopy (01/16/18) S/P medial meniscus repair of right knee Family History FAMILY HX Heart disease Mother Endometriosis hyst at 26 Sister Endometriosis diagnosed by and sxs Grandmother SLE (systemic lupus erythematosus) unknown age, but had renal dz Social History Smoking/Tobacco Use Status: Never Smoking risk assessment performed?: Yes Alcohol Intake: current Alcohol Intake frequency: a few times a week Alcohol type: other Drug use: Never Substance use type: does not use Household members: significant other Housing: apartment Number of Children: 2 current occupation: Nurse What type of physical activity do you participate in: independent ambulation Do you feel safe at home: Yes Do you feel safe in your relationship?: Yes Exam Narrative Exam Narrative: Physical Examination General: alert, awake, cooperative, tired appearing HEENT: normocephalic, atraumatic; PERRL, EOM intact, conjunctiva normal; no nasal discharge; moist mucous membranes, oral and pharyngeal mucosa normal, tolerating secretions Neck: supple, trachea midline; full ROM Chest: normal to inspection Respiratory: normal respiratory effort, speaking in full sentences, clear to auscultation, no wheezing, rales or rhonchi Cardiac: regular rate, regular rhythm, S1S2 intact, no murmurs rubs or gallops GI: abdomen soft, non-tender, non-distended; no palpable mass or hepatosplenomegaly Skin: no lesions, rashes or trauma appreciated Neuro: AAOx3, normal speech, moving all extremities Extremities: No peripheral edema Psych: Appropriate mood and affect Course Vital Signs Vital signs: Vital Signs Temperature 38.1 C H 07/23/21 18:53 Pulse 89 07/23/21 18:53 Respiratory Rate 24 07/23/21 18:53 Blood Pressure 120/83 07/23/21 18:53 Pulse Oximetry 96 07/23/21 18:53 Temperature 38.1 C H 07/23/21 18:53 Temperature Source Oral 07/23/21 18:53 Pulse 89 07/23/21 18:53 Respiratory Rate 24 07/23/21 18:53 Respiratory Effort 07/23/21 18:53 Blood Pressure 120/83 07/23/21 18:53 Blood Pressure Position Supine 07/23/21 18:53 Pulse Oximetry 96 07/23/21 18:53 Oxygen Delivery Method Room Air 07/23/21 18:53 Oxygen Flow Rate 0 07/23/21 18:53 Pain Level 10 07/23/21 18:53
[2021-07-23 19:31] LABS: Abs Immature Grans 0.14 10^3/uL (0.0-0.06); Absolute Basophil Count 0.04 10^3/uL (0.0-0.2); Absolute Lymphocyte Count 1.43 10^3/uL (1.2-3.4); Absolute Monocyte Count 0.71 10^3/uL (0.1-0.8); Absolute Neutrophil Count 18.45 10^3/uL (1.2-6.7); Basophils % 0.2; HCT 33.3 % (36.0-46.0); HGB 10.6 g/dL (11.2-15.7); Immature Grans % 0.7; Lymphocytes % 6.9; MCH 28.7 pg (27.0-33.0); MCHC 31.8 % (32.0-36.0); MCV 90.2 fL (80-95); MPV 9.9 fL (8.0-11.0); Monocytes % 3.4; Neutrophils % 88.8; Platelet Count 313 10^3/uL (130-400); RBC 3.69 10^6/uL (3.93-5.22); RDW 13.5 % (11.7-14.6); RDW-SD 44.6 fL; WBC 20.78 10^3/uL (4.4-10.8)
[2021-07-23] MEDS: Dexamethasone 10 MG/ML VIAL IVP (19:35)
[2021-07-23] MEDS: Normal Saline 500 ML 1000 ML IV (19:35)
[2021-07-23 19:45] LABS: INR 1.1 (0.9-1.1); PTT Activated 26.5 sec (21.0-27.5)
[2021-07-23 19:52] LABS: ALT 22 U/L (14-59); AST 14 U/L (15-37); Albumin 2.9 g/dL (3.4-5.0); Alkaline Phosphatase 72 U/L (46-116); Anion Gap 8.3 mmol/L (3-11); BUN 6 mg/dL (7-18); Bilirubin, Total 0.6 mg/dL (0.2-1.0); CO2 27.7 mmol/L (21.0-32.0); CREATININE 0.9 mg/dL (0.55-1.02); Calcium 8.2 mg/dL (8.5-10.1); Chloride 102 mmol/L (98-107); Glucose 80 mg/dL (74-106); NT-proBNP 310 pg/mL (<300); Potassium 3.2 mmol/L (3.5-5.1); Sodium 138 mmol/L (136-145); Total Protein 6.7 g/dL (6.4-8.2); Troponin I < 50 ng/L (<or=60)
[2021-07-23] MEDS: Acetaminophen 325 MG TAB 650 MG PO (19:55)
--- NOTE | 2021-07-23 20:06 | NUR.NOTE ---
Nursing Note: Patient refusing to use commode for urine sample, awaiting cta. ER MD made aware and serum hcg done instead. Pt is refusing to have the property assessment monitor on because the beeping is too loud. Pt c/o discomfort at RAC IV site which was checked, patent with blood return. Dressing reapplied, pt stated some relief.
[2021-07-23 20:07] LABS: COVID-19 PCR Negative (Negative); Influenza A PCR Negative (Negative); Influenza B PCR Negative (Negative); RSV PCR Negative (Negative)
[2021-07-23 20:08] LABS: Source Nasopharynx
[2021-07-23 20:34] LABS: HCG Quant, Pregnancy 2 mIU/mL (1-3)
[2021-07-23] MEDS: Omnipaque 350 MG/ML 100 ML BTL IJ (20:40)
[2021-07-23] MEDS: Normal Saline Flush 10 ML SYR IVP (20:41)
[2021-07-23] MEDS: Acetaminophen 250 mg/Aspirin 250 mg/Caffeine 65 mg TAB 1 EACH PO (20:45)
[2021-07-23] MEDS: Albuterol 2.5 MG/3 ML INH SOLN VIAL UPD (21:00)
--- NOTE | 2021-07-23 21:26 | DI.VRAD_ITS ---
PROCEDURE INFORMATION: Exam: CTA Chest With Contrast Exam date and time: 07/23/2021 8:48 PM Age: 46 years old Clinical indication: Patient HX: Chest pain radiating to back, pleuritic TECHNIQUE: Imaging protocol: Computed tomographic angiography of the chest with contrast. 3D rendering (Not supervised by radiologist): MIP and/or 3D reconstructed images were created by the technologist. Radiation optimization: All CT scans at this facility use at least one of these dose optimization techniques: automated exposure control; mA and/or kV adjustment per patient size (includes targeted exams where dose is matched to clinical indication); or iterative reconstruction. Contrast material: OMNIPAQUE 350; Contrast volume: 85 ml; Contrast route: INTRAVENOUS (IV); COMPARISON: MR ABDOMEN WO/W 03/05/2021 7:57 AM FINDINGS: Pulmonary arteries: There is adequate opacification of blood within the main pulmonary outflow tract, right and left pulmonary arteries and major lobar and segmental branches to both lungs with no pulmonary embolism detected. Aorta: Unremarkable. No aortic aneurysm. No aortic dissection. Lungs: Coarse patchy infiltrates are seen involving the inferior parenchyma of the left lower lobe and along the medial margin of the right lower lobe. A few indistinct nodular densities are also seen scattered throughout the parenchyma of the right upper lobe. Pleural spaces: No pneumothorax or pleural effusion. Heart: There is mild cardiomegaly with no evidence of pericardial effusion or right heart strain. Lymph nodes: No mediastinal or hilar mass or adenopathy detected. Bones/joints: No acute osseous lesions are detected at thoracic levels. Soft tissues: Unremarkable. IMPRESSION: 1. No acute pulmonary embolism is identified. Mild cardiomegaly with no pericardial effusion or evidence of right heart strain. 2. Coarse infiltrates involve the inferior left lower lobe and medial right lower lobe concerning for an acute infectious process. Dictated and Authenticated by: Ramon Gomez MD. Ordering:REYNA Urrutia MD
[2021-07-23] MEDS: Azithromycin 250 MG TAB 500 MG PO (21:51)
[2021-07-23] MEDS: Amoxicillin 875/Clav. 125 TAB PO (21:51)
== END 2021-07-23 22:31 | disposition home or self-care (01) ==
PROVIDERS: Emergency Provider Emergency Medicine; PCP Family Medicine
DX: J18.9 Pneumonia, unspecified organism (principal); R07.9 Chest pain, unspecified; R50.9 Fever, unspecified; Z20.822 Contact with and (suspected) exposure to COVID-19
CPT/HCPCS: 71275; 80053; 87637; 93005; 94640; 96361; 96374; 99284; 99285; 83880; 84484; 84702; 85025; 85610; 85730; 93010; J1100; J3490; J7613

== ENCOUNTER 2021-07-31 18:15 | Outpatient (CLI) | payer MEDICAID, SELFPAY ==
[2021-07-31 15:56] LABS: Abs Immature Grans 0.02 10^3/uL (0.0-0.06); Absolute Basophil Count 0.05 10^3/uL (0.0-0.2); Absolute Eosinophil Count 0.15 10^3/uL (0.0-0.7); Absolute Lymphocyte Count 1.48 10^3/uL (1.2-3.4); Absolute Monocyte Count 0.64 10^3/uL (0.1-0.8); Absolute Neutrophil Count 3.42 10^3/uL (1.2-6.7); Basophils % 0.9; Eosinophils % 2.6; HCT 37.6 % (36.0-46.0); Immature Grans % 0.3; Lymphocytes % 25.7; MCH 28.4 pg (27.0-33.0); MCHC 31.9 % (32.0-36.0); MCV 89 fL (80-95); MPV 9.5 fL (8.0-11.0); Monocytes % 11.1; Neutrophils % 59.4; Platelet Count 453 10^3/uL (130-400); RBC 4.23 10^6/uL (3.93-5.22); RDW 13.5 % (11.7-14.6); WBC 5.76 10^3/uL (4.4-10.8)
[2021-07-31 16:46] LABS: ALT 33 U/L (14-59); AST 9 U/L (15-37); Albumin 3.6 g/dL (3.4-5.0); Alkaline Phosphatase 100 U/L (46-116); Anion Gap 9.7 mmol/L (3-11); BUN 14 mg/dL (7-18); Bilirubin, Total 0.3 mg/dL (0.2-1.0); CO2 25.3 mmol/L (21.0-32.0); CREATININE 0.8 mg/dL (0.55-1.02); Calcium 8.5 mg/dL (8.5-10.1); Chloride 104 mmol/L (98-107); Glucose 114 mg/dL (74-106); Potassium 4.1 mmol/L (3.5-5.1); Sodium 139 mmol/L (136-145); Total Protein 7.2 g/dL (6.4-8.2)
== END 2021-07-31 18:16 | disposition home or self-care (01) ==
LOC: LBO 18:17
PROVIDERS: PCP Family Medicine; Visit Provider Family Medicine
DX: R53.82 Chronic fatigue, unspecified; J18.9 Pneumonia, unspecified organism
CPT/HCPCS: 36415; 80053; 85025

== ENCOUNTER → 2021-08-21 02:11 | Outpatient (CLI) | payer MEDICAID, SELFPAY ==
--- NOTE | 2021-08-21 08:15 | DI.RAD_ITS ---
Exam(s) XR CHEST 2V PA LATERAL EXAM: XR CHEST 2V PA LATERAL CLINICAL HISTORY: reassess pneumonia rt chest, CHRONIC COUGH, R05.3 TECHNIQUE: 2D digital imaging was performed. COMPARISON: CR ABD FLAT UPRIGHT PA CHEST from 11/13/[address] CHEST PE CTA from 07/23/2021 FINDINGS: The heart is not enlarged. The lungs are clear and well expanded. No pleural effusion seen. Mediastin al contours appear intact. IMPRESSION: Normal chest. RADIATION DOSE DELIVERED: Total DLP
== END ==
PROVIDERS: PCP Family Medicine; Visit Provider Family Medicine
DX: R05.3 Chronic cough (principal)
CPT/HCPCS: 71046

== ENCOUNTER 2021-10-11 02:23 | Outpatient (CLI) | payer MEDICAID, SELFPAY ==
[2021-10-11 12:25] LABS: Abs Immature Grans 0.01 10^3/uL (0.0-0.06); Absolute Basophil Count 0.03 10^3/uL (0.0-0.2); Absolute Eosinophil Count 0.09 10^3/uL (0.0-0.7); Absolute Lymphocyte Count 1.16 10^3/uL (1.2-3.4); Absolute Monocyte Count 0.42 10^3/uL (0.1-0.8); Absolute Neutrophil Count 3.07 10^3/uL (1.2-6.7); Basophils % 0.6; Eosinophils % 1.9; HCT 38.5 % (36.0-46.0); HGB 12.3 g/dL (11.2-15.7); Immature Grans % 0.2; Lymphocytes % 24.3; MCH 28.5 pg (27.0-33.0); MCHC 31.9 % (32.0-36.0); MCV 89 fL (80-95); MPV 10.4 fL (8.0-11.0); Monocytes % 8.8; Neutrophils % 64.2; Platelet Count 355 10^3/uL (130-400); RBC 4.31 10^6/uL (3.93-5.22); RDW 12.9 % (11.7-14.6); RDW-SD 42.5 fL; WBC 4.78 10^3/uL (4.4-10.8)
[2021-10-11 13:13] LABS: ALT 23 U/L (14-59); AST 16 U/L (15-37); Albumin 3.5 g/dL (3.4-5.0); Alkaline Phosphatase 95 U/L (46-116); Anion Gap 6.7 mmol/L (3-11); BUN 10 mg/dL (7-18); Bilirubin, Total 0.3 mg/dL (0.2-1.0); CO2 29.3 mmol/L (21.0-32.0); CREATININE 0.8 mg/dL (0.55-1.02); Calcium 8.5 mg/dL (8.5-10.1); Chloride 107 mmol/L (98-107); Glucose 86 mg/dL (74-106); Potassium 4.2 mmol/L (3.5-5.1); Sodium 143 mmol/L (136-145); Total Protein 7.3 g/dL (6.4-8.2); Vitamin B12 232 pg/mL (193-986)
== END 2021-10-11 02:24 | disposition home or self-care (01) ==
LOC: LOS 02:23
PROVIDERS: PCP Family Medicine; Visit Provider Internal Medicine Rheumatology
DX: M32.9 Systemic lupus erythematosus, unspecified (principal); Z86.39 Personal history of other endocrine, nutritional and metabolic disease
CPT/HCPCS: 36415; 80053; 82607; 85025

== ENCOUNTER 2022-02-01 10:46 | Outpatient (CLI) | payer OTHER, SELFPAY ==
--- NOTE | 2022-02-01 10:15 | DI.RAD_ITS ---
Exam(s) XR KNEE LT 3V AP,LAT,SKYE EXAM: XR KNEE LT 3V AP,LAT,SKYE CLINICAL HISTORY: fell on knee - pain 6 weeks. TECHNIQUE: 2D digital imaging was performed. COMPARISON: CR RIGHT KNEE 3 VIEWS from 10/27/2017 FINDINGS: 3 views No evidence of fracture although there appears to be a small amount of increased joint fluid. No deg enerative narrowing. No osteophytes. Bone density normal. No osseous lesions. IMPRESSION: No significant osseous findings. Small amount of increased joint fluid noted. DATA REPOSITORY: RADIATION DOSE DELIVERED:
== END 2022-02-01 10:47 | disposition home or self-care (01) ==
LOC: DIORS 10:46
PROVIDERS: PCP Family Medicine; Referring Provider Family Medicine; Visit Provider Physician Assistant Surgical
DX: S89.92XA Unspecified injury of left lower leg, initial encounter (principal); W19.XXXA Unspecified fall, initial encounter
CPT/HCPCS: 73562

== ENCOUNTER 2022-02-27 02:57 | Outpatient (CLI) | payer OTHER, SELFPAY ==
--- NOTE | 2022-02-27 07:00 | DI.MRI_ITS ---
Exam(s) MR LOWER JOINT LT WO EXAM: MR LOWER JOINT LT WO CLINICAL HISTORY: pain, lt knee injury, w89.92xa TECHNIQUE: Multiplanar multisequence MRI of the knee was performed. COMPARISON: MR MRI R LOWER JOINT WO CONT from 11/03/2017 CR XR KNEE LT 3V AP,LAT,SKYE from 02/01/2022 FINDINGS: EFFUSION: There is no evidence of joint effusion or Chang cyst in the popliteal fossa. MARROW:There is no evidence of fracture, bone contusion, nor osteochondral defects.. There is a mukund lomeration of subarticular cysts in the most posterior weight-bearing surface aspect of the medial fe moral condyle with mild surrounding bone edema. PATELLOFEMORAL COMPARTMENT: The quadriceps tendon is intact. The patellar ligament is intact. There is multifocal signal abnormality in the retropatellar cartilage, most prominent over the medial facet where there is also mild subarticular edema in the posterior patella at this level. However, there is no full-thickness thinning of the retropatellar cartilage over the medial and lateral facets .There is no intraosseous signal to suggest recent patellar dislocation. There are no patellar retina cular tears. There is mild deep subcutaneous edema anterior to the patella and patellar ligament. CRUCIATE LIGAMENTS: The anterior cruciate ligament is intact.The posterior cruciate ligament is intac t. MEDIAL COMPARTMENT/MEDIAL MENISCUS: There is an oblique tear in the lateral 3rd of the posterior horn of the medial meniscus. This violates the inferior articular surface. No bucket-handle configurati on no meniscal extrusion. No flipped fragments. No meniscocapsular separation. Meniscal root is in tact. There is a some partially septated fluid collection posterior to the posterior horn and extend ing to the level of the ACL measuring approximately 1.5 cm wide by 1 cm AP by 0.8 cm craniocaudal. T his may be a degenerative meniscal cyst as it is intimately associated with the posterior horn. The anterior horn is intact. There are no chondral nor osteochondral defects. However, there is a conglomeration of subarticular cysts with some mild bone edema in the most posterior aspect of the medial femoral condyle, this exhi biting total measurement of approximately 1.5 x 1.5 cm. Cartilage over this area appears intact. No osteophytes in the medial compartment. MEDIAL COLLATERAL LIGAMENT: Intact LATERAL COMPARTMENT/LATERAL MENISCUS: There is no evidence of lateral meniscal tear.There are no salome dral defects, osteochondral defects, subarticular marrow edema, nor osteophytes evident. ILIOTIBIAL BAND: Intact LATERAL COLLATERAL LIGAMENT COMPLEX: The fibular collateral ligament is intact. The biceps femoris t endon is intact.Popliteus muscle and tendon are intact. IMPRESSION: 1. There is an oblique tear in the lateral 3rd of the posterior horn of the medial meniscus which dale lates the inferior articular surface, as described above. No flipped fragments nor meniscocapsular s eparation but there is a 15 x 10 x 8 millimeter area of fluid signal posterior to the posterior horn which is probably a degenerative meniscal cyst. The anterior horn of the medial meniscus is intact. There is a 15 x 15 millimeter area of conglomeration of subarticular small cysts in the most posteri or aspect of the medial femoral condyle with some mild surrounding bone edema but no obvious overlyin g cartilage loss. The anterior horn of the medial meniscus is intact and there are no tears of the l ateral meniscus. 2. Cruciate and collateral ligaments are intact. 3. Chondromalacia patella as described above. 4. There is no joint effusion and there is no Chang cyst. DATA REPOSITORY:
== END 2022-02-27 03:17 ==
LOC: DI 02:57
PROVIDERS: PCP Family Medicine; Visit Provider Student in an Organized Health Care Education/Training Program
DX: S89.82XA Other specified injuries of left lower leg, initial encounter; M25.562 Pain in left knee; M25.862 Other specified joint disorders, left knee; S83.242A Other tear of medial meniscus, current injury, left knee, initial encounter; X58.XXXA Exposure to other specified factors, initial encounter
CPT/HCPCS: 73721

== ENCOUNTER 2022-02-27 03:37 | Outpatient (CLI) | payer OTHER, SELFPAY ==
[2022-02-27 12:10] LABS: Bilirubin Negative (Negative); Blood Negative (Negative); Clarity Clear (Clear); Glucose Negative (Negative); Ketones Negative (Negative); Leukocyte Esterase Negative (Negative); Nitrite Negative (Negative); Specific Gravity >= 1.030 (1.005-1.025); Urobilinogen 0.2 EU/dL (Up TO 0.2)
[2022-02-27 12:15] LABS: Abs Immature Grans 0.01 10^3/uL (0.0-0.06); Absolute Basophil Count 0.04 10^3/uL (0.0-0.2); Absolute Monocyte Count 0.49 10^3/uL (0.1-0.8); Absolute Neutrophil Count 5.79 10^3/uL (1.2-6.7); Basophils % 0.5; Eosinophils % 1.3; HCT 42.8 % (36.0-46.0); HGB 13.1 g/dL (11.2-15.7); Immature Grans % 0.1; Lymphocytes % 16.8; MCH 27.2 pg (27.0-33.0); MCHC 30.6 % (32.0-36.0); MCV 89 fL (80-95); MPV 10.4 fL (8.0-11.0); Monocytes % 6.3; Platelet Count 380 10^3/uL (130-400); RBC 4.82 10^6/uL (3.93-5.22); RDW-SD 42.5 fL; WBC 7.73 10^3/uL (4.4-10.8)
[2022-02-27 12:20] LABS: ESR 25 mm/hr (0-20)
[2022-02-27 13:04] LABS: ALT 24 U/L (14-59); AST 15 U/L (15-37); Albumin 3.9 g/dL (3.4-5.0); Alkaline Phosphatase 81 U/L (46-116); Anion Gap 6.4 mmol/L (3-11); BUN 12 mg/dL (7-18); Bilirubin, Total 0.4 mg/dL (0.2-1.0); CO2 28.6 mmol/L (21.0-32.0); CREATININE 0.9 mg/dL (0.55-1.02); Chloride 102 mmol/L (98-107); Estimated GFR 79.85 (mL/min/1.73m2); Glucose 107 mg/dL (74-106); Potassium 3.5 mmol/L (3.5-5.1); Sodium 137 mmol/L (136-145); Vitamin B12 289 pg/mL (193-986)
[2022-02-27 13:29] LABS: Total Protein 7.9 g/dL (6.4-8.2)
[2022-02-27 13:33] LABS: C-Reactive Protein < 0.05 mg/dL (0.0-0.3)
== END 2022-02-27 03:38 | disposition home or self-care (01) ==
LOC: LOS 03:38
PROVIDERS: PCP Family Medicine; Visit Provider Nurse Practitioner Family
DX: R53.83 Other fatigue; R42 Dizziness and giddiness; R51.9 Headache, unspecified; R11.0 Nausea; R61 Generalized hyperhidrosis; R68.89 Other general symptoms and signs; N39.0 Urinary tract infection, site not specified; R59.0 Localized enlarged lymph nodes
CPT/HCPCS: 36415; 80053; 85652; 81003; 82607; 84443; 85025; 86140; 87086

== ENCOUNTER 2022-04-17 09:23 | Day surgery (SDC) | payer OTHER, SELFPAY ==
[2022-04-17] VITALS (11 sets, daily range): BP systolic 106–138; BP diastolic 66–90; PULSE 71–89; RESP 14–17; TEMP 36.5–36.7; O2SAT 97–100; BMI 40.7
--- NOTE | 2022-04-17 09:29 | W.ANESPRE ---
General Info Date of Service Date Performed: 04/17/22 Height: 5 ft 7 in Weight: 117.934 kg Body Mass Index (BMI): 40.7 Surgical Procedure: Operation Date: 04/17/22 11:55 Proposed Procedure Side Surgeon p Knee Arthroscopy, Partial Medial Menisectomy Left Hakeem Ireland MD Meds Allergies and Home Medications Allergies Allergy/AdvReac Type Severity Reaction Status Date / Time pregabalin Allergy Intermediate Dry/Sore Verified 04/16/22 12:17 mouth Sulfa (Sulfonamide AdvReac Intermediate LUPUS Verified 04/16/22 12:17 Antibiotics) tetracycline AdvReac Mild vomiting Verified 04/16/22 12:17 codeine AdvReac Unknown VOMITING Verified 04/16/22 12:17 Opioids - Morphine Analogues AdvReac Unknown TACHYCARDIA Verified 04/16/22 12:17 Home Medication Medication Instructions Recorded [id number]-ifsiuwnaoxaeb-ahnvgygw 250 2 tab PO BID PRN 07/22/12 mg-250 mg-65 mg tablet (Excedrin Migraine) ergocalciferol (vitamin D2) 1,250 1 cap PO .QWEEK #6 caps 07/22/12 mcg (50,000 unit) capsule ergocalciferol (vitamin D2) 10 mcg 1 tab PO PM 07/22/12 (400 unit) tablet folic acid-vit B6-vit B12 2.5 1 tab-cap PO DAILY 06/11/13 mg-25 mg-2 mg tablet (Folbic) fexofenadine-pseudoephedrine ER 1 tab-cap PO DAILY PRN 08/05/17 180 mg-240 mg tablet,ext.release 24 hr (Tracey-D 24 Hour) magnesium 250 mg tablet 400 mg PO DAILY 01/16/18 zolpidem 10 mg tablet 10 mg PO QHS 07/31/21 Magic Mouthwash See Rx Instructions SS QID #240 mL 10/31/21 diltiazem HCl 240 mg 240 mg PO DAILY #90 caps 11/28/21 capsule,extended release 24 hr dextroamphetamine-amphetamine 30 30 mg PO BID PRN add #56 tab-caps 02/06/22 mg tablet (Adderall) ondansetron 4 mg disintegrating 4 - 8 mg PO BID PRN nausea and 02/25/22 tablet vomiting #20 tabs escitalopram oxalate 10 mg tablet 30 mg PO DAILY #180 tabs 03/05/22 hydrocodone 5 mg-acetaminophen 325 1 tab PO Q8H PRN pain #15 tabs 03/19/22 mg tablet lorazepam 1 mg tablet 1 mg PO BID PRN anxiety #20 tabs 04/09/22 esomeprazole magnesium 40 mg 40 mg PO HS 04/16/22 capsule,delayed release (Nexium) hydroxychloroquine 200 mg tablet 400 mg PO HS 04/16/22 (Plaquenil) venlafaxine 37.5 mg 37.5 mg PO HS 04/16/22 capsule,extended release 24 hr Current Visit Medications: Current Medications Generic Name Dose Route Start Last Admin Trade Name Freq PRN Reason Stop Dose Admin Acetaminophen 650 mg 04/17/22 07:30 Acetaminophen 325 Mg Tab PO Q4H PRN PRN Hydrocodone Bitart/Acetaminophen 0 tab 04/17/22 07:30 Hydrocodone 5/Acetaminophen 325 Tab PO Q3H PRN PRN Pain Cefazolin Sodium 3,000 mg/ 100 mls @ 200 mls/hr 04/17/22 06:00 Sodium Chloride IVPB 04/17/22 16:00 PREOP [facility] Ringer's Solution 1,000 mls @ 80 mls/hr 04/17/22 06:00 IV 05/16/22 23:59 INFUSION [facility] IV Miscellaneous Supplies 1 each 04/17/22 06:00 Iv Access IV 05/16/22 23:59 DIRECTED VICTORIA Sodium Chloride 0 ml 04/17/22 06:00 Normal Saline Flush 10 Ml Syr IV 05/16/22 23:59 PRN PRN Sodium Chloride 0 ml 04/17/22 06:00 Normal Saline 10 Ml Vial IJ 05/16/22 23:59 DIRECTED PRN Sterile Water 0 ml 04/17/22 06:00 Water,Injection,Sterile 10 Ml Vial IJ 05/16/22 23:59 DIRECTED PRN PFSH Active Problems Active Problems: Problem Status Onset Code Anxiety F41.9 Tear of medial meniscus of left knee S83.242A Acute internal derangement of left knee M23.92 Systemic lupus erythematosus M32.9 Endometriosis N80.9 GERD with esophagitis K21.00 Major depressive disorder F32.9 Vitamin B 12 deficiency E53.8 Vitamin D deficiency E55.9 Mild intermittent asthma J45.20 Fibromyalgia M79.7 Medial epicondylitis, left elbow M77.02 Recurrent UTI N39.0 Chronic fatigue syndrome R53.82 Hyperlipidemia E78.5 Tachycardia R00.0 Exertional shortness of breath R06.02 Neck pain, musculoskeletal M54.2 Occipital neuralgia M54.81 Pyelonephritis of right kidney N12 Flushing R23.2 Achilles tendon disorder M67.979 Pancreatic mass K86.89 UTI (urinary tract infection) N39.0 Pyelonephritis N12 Abdominal pain R10.9 Yeast vaginitis B37.3 Achilles tendonosis of right lower extremity M67.88 Medical History Active Problem List UTI (urinary tract infection) (Acute) Pancreatic mass (Acute) Achilles tendon disorder (Acute) Flushing (Acute) Pyelonephritis of right kidney (Acute) Occipital neuralgia (Acute) Neck pain, musculoskeletal (Acute) Exertional shortness of breath (Acute) Tachycardia (Acute) Hyperlipidemia (Chronic) Chronic fatigue syndrome (Acute) Recurrent UTI (Acute) Medial epicondylitis, left elbow (Acute) Fibromyalgia (Chronic) Mild intermittent asthma (Acute) Vitamin D deficiency (Acute) Endometriosis (Chronic) Systemic lupus erythematosus (Chronic) Vitamin B 12 deficiency (Chronic) Major depressive disorder (Chronic) GERD with esophagitis (Acute) Medical History Pyloric ulcer In 2019 Serrated adenoma of colon In 2010 Medical History Comments:: Patient states due to her SLE she has a reaction to Propofol, states she had decreased body temp and chills, migraines, and head to toe body pain. Last seen by rheumatolgy today...I uploaded the note Surgical History Surgical History History of arthroscopic knee surgery Hx of esophagogastroduodenoscopy (12/07/18) S/P cholecystectomy (12/11/11) S/P colonoscopy (01/16/18) S/P medial meniscus repair of right knee Tobacco Smoking/Tobacco Use Status: Never Alcohol Alcohol Intake: current Alcohol intake frequency: a few times a week Alcohol type: other Substance Use Substance use: Never Substance use type: does not use Vital Signs and Lab Results Vital Signs Most Recent Vital Signs in EMR: Temp Pulse Resp BP Pulse Ox 36.6 C 89 16 132/90 99 04/17/22 09:54 04/17/22 09:54 04/17/22 09:54 04/17/22 09:54 04/17/22 09:54 Lab Results Blood Type / Crossmatch: No Data to Display Complete Blood Count: No Data to Display Complete Metabolic Panel: No Data to Display Liver Function Panel: No Data to Display Coagulation Panel: No Data to Display Cardiac Panel: No Data to Display Arterial Blood Gas: No Data to Display Venous Blood Gas: No Data to Display Pancreas Panel: No Data to Display Thyroid Panel: No Data to Display Infectious Disease: No Data to Display Blood Cultures: No Data to Display Toxicology Panel: No Data to Display Panel: No Data to Display Imaging and Studies Imaging and Studies Study information below may be from another EMR and interpreted by another provider. Please see original notes in EMR for more complete details. EKG Summary: 07/20: sinus, possible iRBBB Echocardiogram Summary: 2015: LVEF 60%, CT Summary: 05/2020: coronary ca score, 0 score - consistent with no plaque burden Anesthesia Assessment and Plan Anesthesia History Personal History: Other Family History: No Family History of Anesthesia Complications Exercise Tolerance Exercise Tolerance: Metabolic Equivalents>4 Cardiac & Pulmonary Exam Cardiac Exam: Normal S1/S2 Heart Sounds Pulmonary Exam: Clear Bilateral Breath Sounds Implantable Cardiac Device Does patient have a Pacemaker or an ICD?: No Airway Exam Known Difficult Airway: No Mallampati Class: 2 Mouth Opening: Normal (> 3cm) Thyromental Distance: Greater than 3 cm Neck Range of Motion: Full ROM Neck Circumference: Normal Teeth Condition: Normal Dentition ASA Classification ASA Score: ASA 3 Emergency Case?: No NPO Status NPO Status: NPO Clears >2 hours, Solids >8 hours Status Status: Not Relevant due to Medical History Anesthesia Plan Resuscitation Status: Full Code Anesthesia Technique: General Anesthesia Airway Planned: Endotracheal Tube Monitors Used: Standard Monitors Preoperative Comments:: 46 yo female for knee scope. sig PMHx: anxiety/depression (venlafaxine,escitalopram, lorazepam), SLE (hydroxchloroquine, prednisone in october), gerd (esomeprazole, well controlled), fibromyalgia (pregabalin - which was stopped due to mouth sores, doing ok pain walker), tachy (dilt, but she stopped it ~3 months ago and has been doing well)/?POTS, never smoker, occ etoh. covid 4 weeks ago, Previous anes: - [facility] [place] prop/dexmed for EUS. Per [facility] note: she called her rheum to state that she has had severe pain everywhere like she had been dropped off a building, she was freezing and her temp was 94. She found that there is a potential for prop and SLE exacerbation. - [facility] egd prop. Plan: Discussed the risks, benefits of spinal vs general r/t to the potential of prop leading to an SLE exacerbation. We discussed options for anes. in the end, she would like to try prop again and is agreeable to its use. We will plan on GAETT with prop/ketamine/sevo induction, sevo/prop maint.
[2022-04-17] MEDS: Lactated Ringers 1,000 ML 80 ML IV (10:00)
--- NOTE | 2022-04-17 11:17 | W.PREOPHP ---
Assessment and Plan Assessment and plan (1) Tear of medial meniscus of left knee: Status: Acute (2) Acute internal derangement of left knee: Status: Acute Assessment and plan: Plan: Educated patient on surgery covering surgical technique, recovery process, benefits and risks including but not limited to risk of infection, blood clot, damage to soft tissue/blood vessels/nerves in detail. After discussion patient gives verbal understanding of risks and elects to proceed with scheduling surgery. Patient had opportunity to have questions answered to their satisfaction. Patient will continue to be scheduled for left knee arthroscopy and associated procedures with Dr. Ireland History of Present Illness Narrative: Ms. Cedeno is a 46-year-old female who presents to hospital for preoperative examination for scheduled left knee arthroscopy later today. She has been experiencing left knee discomfort for over three months. She has continued discomfort that is described as a near constant achy sensation that is aggravated with pivoting, twisting and turning. She has tried to manage symptoms by avoiding activity and conservative measures. Due to her continued pain and MRI revealing tear of the medial meniscus, complex of subarticular degenerative cyst about the posterior most aspect of the medial femur she was offered and elected to proceed with left knee arthroscopy. Denies changes to medical history. Reports suffered from Covid-19 over 4 weeks ago. Review of Systems Cardiovascular Cardiovascular: Denies chest pain and Denies dyspnea Respiratory Respiratory: Denies dyspnea PFSH All Active Problems Anxiety (Chronic) Tear of medial meniscus of left knee (Acute) Acute internal derangement of left knee (Acute) Systemic lupus erythematosus (Chronic) Followed by Dr. Main with [facility] Rheumatology Endometriosis (Chronic) GERD with esophagitis (Acute) Major depressive disorder (Chronic) Vitamin B 12 deficiency (Chronic) Vitamin D deficiency (Acute) Mild intermittent asthma (Acute) Fibromyalgia (Chronic) Medial epicondylitis, left elbow (Acute) Steroid injection: 01/31/2020 Recurrent UTI (Acute) Chronic fatigue syndrome (Acute) due to Lupus Hyperlipidemia (Chronic) Tachycardia (Acute) Exertional shortness of breath (Acute) Neck pain, musculoskeletal (Acute) Occipital neuralgia (Acute) Pyelonephritis of right kidney (Acute) Flushing (Acute) Achilles tendon disorder (Acute) Pancreatic mass (Acute) UTI (urinary tract infection) (Acute) Pyelonephritis (Acute) Abdominal pain (Acute) Yeast vaginitis (Acute) Achilles tendonosis of right lower extremity (Acute) Active Problem List UTI (urinary tract infection) (Acute) Pancreatic mass (Acute) Achilles tendon disorder (Acute) Flushing (Acute) Pyelonephritis of right kidney (Acute) Occipital neuralgia (Acute) Neck pain, musculoskeletal (Acute) Exertional shortness of breath (Acute) Tachycardia (Acute) Hyperlipidemia (Chronic) Chronic fatigue syndrome (Acute) Recurrent UTI (Acute) Medial epicondylitis, left elbow (Acute) Fibromyalgia (Chronic) Mild intermittent asthma (Acute) Vitamin D deficiency (Acute) Endometriosis (Chronic) Systemic lupus erythematosus (Chronic) Vitamin B 12 deficiency (Chronic) Major depressive disorder (Chronic) GERD with esophagitis (Acute) Medical History Pyloric ulcer In 2019 Serrated adenoma of colon In 2010 Surgical History History of arthroscopic knee surgery Hx of esophagogastroduodenoscopy (12/07/18) S/P cholecystectomy (12/11/11) S/P colonoscopy (01/16/18) S/P medial meniscus repair of right knee Family History FAMILY HX Heart disease Mother Endometriosis hyst at 26 Sister Endometriosis diagnosed by and sxs Grandmother SLE (systemic lupus erythematosus) unknown age, but had renal dz Social History Smoking/Tobacco Use Status: Never Smoking risk assessment performed?: Yes Alcohol Intake: current Alcohol Intake frequency: a few times a week Alcohol type: other Drug use: Never Substance use type: does not use Household members: significant other Housing: apartment Number of Children: 2 current occupation: Nurse What type of physical activity do you participate in: independent ambulation Do you feel safe at home: Yes Do you feel safe in your relationship?: Yes Meds Allergies and Home Medications Allergies Allergy/AdvReac Type Severity Reaction Status Date / Time pregabalin Allergy Intermediate Dry/Sore Verified 04/16/22 12:17 mouth Sulfa (Sulfonamide AdvReac Intermediate LUPUS Verified 01/17/23 12:17 Antibiotics) tetracycline AdvReac Mild vomiting Verified 04/16/22 12:17 codeine AdvReac Unknown VOMITING Verified 04/16/22 12:17 Opioids - Morphine Analogues AdvReac Unknown TACHYCARDIA Verified 04/16/22 12:17 Home Medications Medication Instructions Recorded Confirmed Type yfwwdim-odherojwgrgva-hzldjkjg 250 2 tab PO BID PRN 07/22/12 04/17/22 History mg-250 mg-65 mg tablet (Excedrin Migraine) ergocalciferol (vitamin D2) 1,250 1 cap PO .QWEEK #6 caps 07/22/12 04/17/22 History mcg (50,000 unit) capsule ergocalciferol (vitamin D2) 10 mcg 1 tab PO PM 07/22/12 04/17/22 History (400 unit) tablet folic acid-vit B6-vit B12 2.5 1 tab-cap PO DAILY 06/11/13 04/17/22 History mg-25 mg-2 mg tablet (Folbic) fexofenadine-pseudoephedrine ER 1 tab-cap PO DAILY PRN 08/05/17 04/17/22 History 180 mg-240 mg tablet,ext.release 24 hr (Tracey-D 24 Hour) magnesium 250 mg tablet 400 mg PO DAILY 01/16/18 04/17/22 History zolpidem 10 mg tablet 10 mg PO QHS 07/31/21 04/17/22 History Magic Mouthwash See Rx Instructions SS QID #240 mL 10/31/21 04/17/22 Rx diltiazem HCl 240 mg 240 mg PO DAILY #90 caps 11/28/21 04/17/22 Rx capsule,extended release 24 hr dextroamphetamine-amphetamine 30 30 mg PO BID PRN add #56 tab-caps 02/06/22 04/17/22 Rx mg tablet (Adderall) ondansetron 4 mg disintegrating 4 - 8 mg PO BID PRN nausea and 02/25/22 04/17/22 Rx tablet vomiting #20 tabs escitalopram oxalate 10 mg tablet 30 mg PO DAILY #180 tabs 03/05/22 04/17/22 Rx hydrocodone 5 mg-acetaminophen 325 1 tab PO Q8H PRN pain #15 tabs 03/19/22 04/17/22 Rx mg tablet lorazepam 1 mg tablet 1 mg PO BID PRN anxiety #20 tabs 04/09/22 04/17/22 Rx esomeprazole magnesium 40 mg 40 mg PO HS 04/16/22 04/17/22 History capsule,delayed release (Nexium) hydroxychloroquine 200 mg tablet 400 mg PO HS 04/16/22 04/17/22 History (Plaquenil) venlafaxine 37.5 mg 37.5 mg PO HS 04/16/22 04/17/22 History capsule,extended release 24 hr Exam Const General: cooperative and no acute distress Resp Effort & Inspection: normal respiratory effort and able to speak in complete sentences Auscultation: clear to auscultation bilaterally, no rales, no rhonchi and no wheezes Cardio Heart Sounds: S1 normal, S2 normal, no murmurs, no rubs and no other Pulses: radial pulses present bilaterally Results Last Vital Signs Temp 97.9 F 04/17/22 09:54 Pulse 89 04/17/22 09:54 Resp 16 04/17/22 09:54 BP 132/90 04/17/22 09:54 Pulse Ox 99 04/17/22 09:54
[2022-04-17] MEDS: ceFAZolin 3,000 MG in Normal Saline 100 ML 200 MG IVPB (11:41)
--- NOTE | 2022-04-17 11:47 | W.PM.DSUDISC ---
Date of service: 04/17/22 Time of Service: 11:53 Discharge Plan Disposition Patient Disposition: Home Discharge Details Reason For Visit: left knee medialmeniscus tear/internal derangement Attending Provider: Hakeem Ireland Primary Care Provider: Panfilo Walter Home Meds and New Rx's Prescriptions: New hydrocodone-acetaminophen 5-325 mg tablet 1 tab PO Q6H PRN (Reason: severe pain) Qty: 6 0RF Rx Instructions: Take one tablet up to every 6 hours as needed for severe postoperative pain acetaminophen 500 mg tablet 500 mg PO Q6H PRN (Reason: pain) Qty: 60 2RF ibuprofen 600 mg tablet 600 mg PO TID PRN (Reason: pain) Qty: 60 0RF Continued ondansetron 4 mg tablet,disintegrating 4 - 8 mg PO BID PRN (Reason: nausea and vomiting) Qty: 20 0RF lorazepam 1 mg tablet 1 mg PO BID PRN (Reason: anxiety) Qty: 20 0RF zolpidem 10 mg tablet 10 mg PO QHS diltiazem HCl 240 mg capsule,extended release 24hr 240 mg PO DAILY Qty: 90 3RF ergocalciferol (vitamin D2) 400 UNIT tablet 1 tab PO PM ergocalciferol (vitamin D2) 50,000 UNIT capsule 1 cap PO .QWEEK Qty: 6 Excedrin Migraine 1 EACH tablet 2 tab PO BID PRN Folbic 1 EACH tablet 1 tab-cap PO DAILY fexofenadine-pseudoephedrine [Tracey-D 24 Hour] 1 EACH tablet extended release 24 hr 1 tab-cap PO DAILY PRN Magic Mouthwash solution See Rx Instructions SS QID Qty: 240 2RF Rx Instructions: 1:1:1 viscous lido/benadryl/maalox Swish and Swallow four times a day; dextroamphetamine-amphetamine [Adderall] 30 mg tablet 30 mg PO BID MDD 2 PRN (Reason: add) Qty: 56 0RF Rx Instructions: Take 1 pill twice a day, administer doses at least 4-6 hours apart escitalopram oxalate 10 mg tablet 30 mg PO DAILY Qty: 180 3RF Rx Instructions: dose increase 03/05/22 magnesium 250 mg Tablet 400 mg PO DAILY venlafaxine 37.5 mg capsule,extended release 24hr 37.5 mg PO HS esomeprazole magnesium [Nexium] 40 mg capsule,delayed release(DR/EC) 40 mg PO HS hydroxychloroquine [Plaquenil] 200 mg tablet 400 mg PO HS Discontinued hydrocodone-acetaminophen 5-325 mg tablet 1 tab PO Q8H MDD 3 tabs PRN (Reason: pain) Qty: 15 0RF Discharge Instructions Stand Alone Forms: [facility] Knee Arthroscopy Equipment/Supplies: Partial Weight Bearing Crutches Activity:: Elevate Remove Dressings/Wound Care:: 72 hours Shower/Bathe:: 72 hours Diet:: As Tolerated Discharge Orders Discharge Orders: Discharge Order (Routine); Ordered 04/17/22 Ordered By: Nisreen Rizo DS: Diagnosis Discharge Diagnosis (1) Tear of medial meniscus of left knee: Status: Acute (2) Acute internal derangement of left knee: Status: Acute
[2022-04-17] MEDS: EPINEPHrine 30 MG/30 ML VIAL (12:16)
[2022-04-17] MEDS: Bupivacaine 0.5% Pres-Free 30 ML VIAL (12:25)
[2022-04-17] MEDS: Normal Saline 10 ML VIAL IJ (12:59)
[2022-04-17] MEDS: HYDROmorphone 2 MG/ML SYR IVP (12:59)
--- NOTE | 2022-04-17 13:09 | W.ANESPOSTOP ---
Postoperative Evaluation Date, Time and Location Date Performed: 04/17/22 Time Performed: 13:09 Patient Location: PACU Vital Signs Most Recent Imported Vital Signs: Most Recent Vital Signs Temp Pulse Resp BP Pulse Ox 36.7 C 75 17 126/78 98 04/17/22 13:04 04/17/22 13:05 04/17/22 13:05 04/17/22 13:05 04/17/22 13:05 Pain Score Most Recent Pain Score: Most Recent Pain Score Pain Level 6 04/17/22 13:05 Assessment Mental Status: Awake (Alert & Oriented to Patient Baseline) Airway and Respiratory Function: Patent airway with normal (patient baseline) respiratory exam Cardiovascular Function: Hemodynamically Stable Hydration Status: Adequately Hydrated Nausea & Vomiting: No Nausea or Vomiting Pain: Pain is tolerable per patient Peripheral Nerve Block: Patient did not receive a nerve block
[2022-04-17] MEDS: HYDROcodone 5/Acetaminophen 325 TAB PO (14:02)
--- NOTE | 2022-04-17 19:02 | W.PM.OP ---
Date of service: 04/17/22 Time of Service: 12:30 Operative Note Operative Note DATE OF PROCEDURE: 04/17/22 PRE-OP DIAGNOSIS: Left Knee Medial Meniscus Tear POST-OP DIAGNOSIS: same PROCEDURE: Partial Medial Menisectomy of Left Knee SURGEON: Hakeem Ireland ANESTHESIA TYPE: General LMA/ETT Refer to Anesthesia Record ESTIMATED BLOOD LOSS: 0 PATHOLOGY: none sent TOURNIQUET TIME: 0 COMPLICATIONS: None Patient was transported to: PACU Patient's condition: stable Indications: I have seen Ashley in clinic for symptoms of a meniscus tear. This was confirmed based on MRI and exam findings. Nonoperative measures were exhausted but disability and pain persisted. I discussed knee arthroscopy with meniscal intervention with the patient. I reviewed the risks of the procedure to include, but not limited to, bleeding, infection, pain, stiffness, damage to nerves or vessels, recurrence, blood clot. Despite these risks, the patient elected to proceed. Findings: A diagnostic arthroscopy was performed with the following findings: Suprapatellar Pouch: No significant inflammation, No loose bodies Medial Compartment: Complex medial meniscal tear involving the root and a radial tear adjacent to the posteiror horn, Grade I chondromalacia of the femur, No loose bodies Notch: ACL and PCL were intact Lateral Compartment: No meniscal tear, Intact meniscal root, No significant chondromalacia or signs of arthritis, No loose bodies Patellofemoral Compartment: Central chondral defect (Grade II chondromalacia) of the apex of the patella, No apparent patellar maltracking Procedure Description: Ashley was greeted in the preoperative holding area where the correct side was identified and marked. The consent was reviewed with the patient and signed. The history and physical was updated. All questions were answered. She was taken back to the operating room. The patient was placed into the supine position on the operating room table. All bony prominences were well padded. Prophylactic antibiotics in the form of Cefazolin were administered. The left leg was then prepped with Chloraprep and draped in a standard fashion with stockinette and extremity drape. A timeout to confirm correct identity, side and site, procedure, allergies, anesthesia, and medical concerns was performed. The leg was placed into a pneumatic leg dumas, [id number]. A standard lateral portal was made at the lateral border of the patella tendon in line with the inferior pole of the patella, soft spot. The skin and deep tissue was incised sharply and the blunt trochar was inserted atraumatically. A diagnostic arthroscopy was performed and the findings are listed above. The suprapatellar pouch had no significant inflammatory change. The patellofemoral articulation showed focal Grade II chondromalacia at the patellar apex as well as good tracking. The lateral gutter had no loose bodies and the medial gutter had no loose bodies. The knee was brought into some valgus stress in extension to open the medial compartment. A medial portal was made, localized by a spinal needle. The portal was created with an #11 blade through skin and capsule under direct visualization avoiding any meniscal injury. A probe was then inserted into the medial compartment. The medial compartment was fully inspected. The chondral surface of the tibia showed no significant chondromalacia and the surface of the femur showed minimal Grade I chondromalacia. The medial meniscus had a radial type tear just medial to the posteiror horn with a loose posterior body and a complex tear of the posterior horn. Visualization and manipulation within the medial compartment was challenging due to the size/shape of the leg. After evaluation, the meniscus was debrided down to a stable base using a series of biters and arthroscopic joaquin. It was probed afterwards to confirm that the tear had been removed and the meniscus was stable. The notch was then inspected which showed an intact ACL and an intact PCL. The leg was then brought into a figure of 4 position. The lateral compartment was fully inspected with the arthroscope and a probe. The chondral surface of the lateral femur showed no significant chondromalacia. The chondral surface of the lateral tibia showed no significant chondromalacia. The lateral meniscus had no meniscal tear. The arthroscope was brought back into the suprapatellar pouch and the leg was in full extension. The knee was thoroughly irrigated with the arthroscopic fluid on high flow and pressure. Inflow was stopped and excess fluid was removed. The wounds were closed with 4-0 Nylon. They were dressed with Xeroform, 4x4 gauze, ABD pad, Kerlix and an RAMILA wrap. A cryo-cuff was applied. The patient tolerated the procedure well and was returned to the Same Day Surgery area in a stable condition suffering no known complication.
== END 2022-04-17 14:35 | disposition home or self-care (01) ==
PROVIDERS: PCP Family Medicine; Visit Provider Student in an Organized Health Care Education/Training Program
PROC: (CPT 29870; principal; 2022-04-17 11:45)
DX: M23.232 Derangement of other medial meniscus due to old tear or injury, left knee (principal); M94.262 Chondromalacia, left knee; E78.5 Hyperlipidemia, unspecified; K21.9 Gastro-esophageal reflux disease without esophagitis; R53.82 Chronic fatigue, unspecified
CPT/HCPCS: 29881; J0131; J0690; J1100; J1170; J1885; J2250; J2405; J2704

== ENCOUNTER 2022-05-27 10:25 | Outpatient (CLI) | payer MEDICAID, SELFPAY ==
--- NOTE | 2022-05-27 09:45 | DI.RAD_ITS ---
Exam(s) XR FOOT RT LIMITED EXAM: XR FOOT RT LIMITED CLINICAL HISTORY: right achilles tendonosis. TECHNIQUE: 2D digital imaging was performed of the right foot. Two images were obtained. AP and la teral views were obtained. COMPARISON: CR XR FOOT RT COMPLETE from 01/06/2019 FINDINGS: BONES: No acute fracture is present. No bony destructive lesion is seen. There is a small spur at the plantar surface of the calcaneus. JOINTS: No dislocation present. SOFT TISSUE: There is appear to be some thickening of the Achilles tendon shadow. IMPRESSION: Thickening of the Achilles tendon shadow. MRI should be considered to evaluate for tendon tear or te ndinopathy. DATA REPOSITORY: RADIATION DOSE DELIVERED:
== END 2022-05-27 10:26 | disposition home or self-care (01) ==
LOC: DIORS 10:25
PROVIDERS: PCP Family Medicine; Referring Provider Family Medicine; Visit Provider Physician Assistant
DX: M76.61 Achilles tendinitis, right leg; M67.871 Other specified disorders of synovium, right ankle and foot
CPT/HCPCS: 73620

== ENCOUNTER 2022-05-28 02:36 | Outpatient (CLI) | payer MEDICAID, SELFPAY ==
[2022-05-28 12:26] LABS: Abs Immature Grans 0.01 10^3/uL (0.0-0.06); Absolute Basophil Count 0.02 10^3/uL (0.0-0.2); Absolute Eosinophil Count 0.11 10^3/uL (0.0-0.7); Absolute Lymphocyte Count 1.16 10^3/uL (1.2-3.4); Absolute Monocyte Count 0.36 10^3/uL (0.1-0.8); Absolute Neutrophil Count 2.54 10^3/uL (1.2-6.7); Basophils % 0.5; Eosinophils % 2.6; HCT 41.2 % (36.0-46.0); Immature Grans % 0.2; Lymphocytes % 27.6; MCH 28.3 pg (27.0-33.0); MCHC 31.6 % (32.0-36.0); MCV 90 fL (80-95); MPV 10.1 fL (8.0-11.0); Monocytes % 8.6; Neutrophils % 60.5; Platelet Count 362 10^3/uL (130-400); RBC 4.59 10^6/uL (3.93-5.22); RDW-SD 46.3 fL
[2022-05-28 12:46] LABS: Iron 70 ug/dL (50-170); Total Iron Binding Capacity 476 ug/dL (250-450); Transferrin Sat 15 % (15-50)
[2022-05-28 13:13] LABS: Ferritin 15 ng/mL (8-252); Vitamin B12 316 pg/mL (193-986)
== END 2022-05-28 02:37 | disposition home or self-care (01) ==
LOC: LOS 02:36
PROVIDERS: PCP Family Medicine; Visit Provider Internal Medicine Rheumatology
DX: E61.1 Iron deficiency (principal); E53.8 Deficiency of other specified B group vitamins; M32.19 Other organ or system involvement in systemic lupus erythematosus
CPT/HCPCS: 36415; 82607; 82728; 83540; 83550; 85025

== ENCOUNTER 2022-06-24 02:03 | Outpatient (CLI) | payer MEDICAID, SELFPAY ==
--- NOTE | 2022-06-24 07:30 | DI.MRI_ITS ---
Exam(s) MR LOWER JOINT RT WO EXAM: MR LOWER JOINT RT WO CLINICAL HISTORY: PAIN,achilles tendon disorder,m67.979,disorder synovium,m67.88 TECHNIQUE: Multiplanar multisequence MRI was performed without intravenous contrast. COMPARISON: CR XR FOOT RT LIMITED from 05/27/2022 FINDINGS: BONES/JOINTS: No fracture or contusion pattern. No bone lesions identified. The talar dome is smooth. The ankle mortise is maintained. No joint effusion is present. The sinus tarsi is normal. MUSCULOTENDINOUS STRUCTURES: Achilles tendon: Thickening mid to distal Achilles tendon. Focal area of high signal consistent with focal partial tear. No significant surrounding fluid. Plantar fascia: Unremarkable. Anterior Extensor tendons: Unremarkable. Posterior Tibialis: Unremarkable. Flexor Digitorum longus: Unremarkable. Flexor Hallucis longus: Unremarkable. Peroneus longus: Unremarkable. Peroneus brevis:Unremarkable. SOFT TISSUES: Unremarkable. OTHER FINDINGS: None. IMPRESSION: Focal tear and mid to distal Achilles tendon. DATA REPOSITORY:
== END 2022-06-24 02:23 ==
LOC: DI 02:03
PROVIDERS: PCP Family Medicine; Visit Provider Student in an Organized Health Care Education/Training Program
DX: M25.571 Pain in right ankle and joints of right foot (principal); M67.88 Other specified disorders of synovium and tendon, other site; S86.011A Strain of right Achilles tendon, initial encounter; X58.XXXA Exposure to other specified factors, initial encounter
CPT/HCPCS: 73721

== ENCOUNTER 2022-08-01 01:16 | Outpatient (CLI) | payer MEDICAID, SELFPAY ==
[2022-08-01 10:32] LABS: Estimated GFR 69.93 (mL/min/1.73m2)
[2022-08-01] MEDS: Normal Saline - Diluent 50 ML VIAL IJ (10:50)
[2022-08-01] MEDS: Omnipaque 350 MG/ML 500 ML BTL-Imaging package IJ (10:50)
--- NOTE | 2022-08-01 11:00 | DI.CT_ITS ---
Exam(s) CT CHEST W EXAM: CT CHEST W CLINICAL HISTORY: rt sided chest pain; lupus history and pneumonia,R07.9 TECHNIQUE: Imaging Protocol: Axial computed tomography images with coronal and sagittal reformatted images were created and reviewed CONTRAST MATERIAL: Intravenous: Omnipaque 350Contrast volume:70 mL. COMPARISON: CT ABD PELVIS WITH CONTRAST from 11/26/2010 CT ABD PELVIS WITH CONTRAST from 11/26/2010 CT ABD PELVIS WITH CONTRAST from 06/02/[address] CHEST PE CTA from 07/23/2021 FINDINGS: Tracheobronchial tree: Patent where visualized. Pulmonary parenchyma: No consolidation or dominant measurable mass. No architectural distortion. No s uspicious pulmonary nodules. Mediastinum and Emily: No dominant adenopathy or fluid collection. The esophagus is unremarkable. Thyroid gland: Unremarkable. Pleura: No effusion or pneumothorax. Heart: The heart is not dilated. No coronary artery calcifications are seen. No pericardial effusion. Aorta: Thoracic aorta non-dilated. Pulmonary arteries: Pulmonary arteries are not adequately opacified for evaluation of pulmonary embol i. Upper abdomen: Status post cholecystectomy. Lymph nodes: Within normal limits. Bones: Within normal limits for the patient's age. Soft tissues: Unremarkable. IMPRESSION: 1. No acute pulmonary process. 2. No suspicious pulmonary nodules or mediastinal adenopathy. RADIATION DOSE DELIVERED: 669.12mGy.cm Total DLP DATA REPOSITORY: All CT scans at this facility are submitted to the National Radiology Data Registry (NRDR) Dose Index Registry (DIR) with the [employer] (ACR). RADIATION OPTIMIZATION: All CT scans at this facility use at least one of these dose optimization te chniques: automated exposure control; mA and/or kV adjustment per patient size (includes targeted exa ms where dose is matched to clinical indication); or iterative reconstruction.
== END 2022-08-01 01:36 ==
LOC: DI 01:16
PROVIDERS: PCP Family Medicine; Visit Provider Family Medicine
DX: R07.9 Chest pain, unspecified (principal)
CPT/HCPCS: 71260; 82565

== ENCOUNTER 2022-08-14 02:01 | Outpatient (CLI) | payer MEDICAID, SELFPAY ==
--- NOTE | 2022-08-14 08:15 | DI.MAMMO_ITS ---
Exam(s) MAMMO SCREENING EXAM: MAMMO SCREENING CLINICAL HISTORY: SCREENING, Z12.39 TECHNIQUE: Mammograms were interpreted according to the usual protocol including computer analysis w [employer] CAD system, tomosynthesis and C-view imaging. COMPARISON: 2018 and 2020 FINDINGS: The breasts are composed of mainly fatty density , Breast Density category A. No suspicious masses or suspicious microcalcifications are seen. No skin thickening or abnormal axillary lymph nodes are seen. There has been no significant change from prior exams. IMPRESSION: BI-RADS Category 1, Negative mammogram Yearly screening mammography is recommended. Breast Density - Category A, fatty density. A negative radiographic report should not delay biopsy if a dominant or clinically suspicious mass is present. Up to ten percent of cancers are not identified on mammography. A negative report may reinforce clinical impression. Adenosis and dense breasts may obscure an underlying neoplasm. False positive reports average 6 to 10%. Patient will receive a letter notifying them of these results.
== END 2022-08-14 02:21 ==
LOC: DI 02:01
PROVIDERS: PCP Family Medicine; Visit Provider Family Medicine
DX: Z12.31 Encounter for screening mammogram for malignant neoplasm of breast (principal)
CPT/HCPCS: 77063; 77067

== ENCOUNTER 2022-10-01 20:10 | Emergency (ER) | payer MEDICAID, SELFPAY ==
[2022-10-01 20:12] VITALS: BP 135/90; PULSE 92; RESP 18; TEMP 36.8; O2SAT 98
--- NOTE | 2022-10-01 23:00 | W.ED.GENAD ---
Discharge Plan Disposition Patient Disposition: Home Condition: Stable Discharge Details Clinical Impression: Aftercare for cast or splint check or change Primary Care Provider: Panfilo Walter ED Provider: Chuckie Valencia Cl[place] Meds and New Rx's Prescriptions: Continued dextroamphetamine-amphetamine [Adderall] 30 mg tablet 30 mg PO BID MDD 2 PRN (Reason: add) Qty: 56 0RF Rx Instructions: Take 1 pill twice a day, administer doses at least 4-6 hours apart diltiazem HCl 240 mg capsule,extended release 24hr 240 mg PO DAILY Qty: 90 3RF ondansetron 4 mg tablet,disintegrating 4 - 8 mg PO BID PRN (Reason: nausea and vomiting) Qty: 20 0RF cyanocobalamin (vitamin B-12) 1,000 mcg/mL solution 1,000 mcg IM QMONTH Qty: 10 2RF venlafaxine 150 mg capsule,extended release 24hr 150 mg PO DAILY Qty: 30 2RF zolpidem 10 mg tablet 10 mg PO QHS trazodone 100 mg tablet 300 mg PO QHS PRN (Reason: insomnia) Qty: 270 3RF Rx Instructions: dose increase (pt started to take 300 mg and it is effective) ergocalciferol (vitamin D2) 400 UNIT tablet 1 tab PO PM ergocalciferol (vitamin D2) 50,000 UNIT capsule 1 cap PO .QWEEK Qty: 6 Excedrin Migraine 1 EACH tablet 2 tab PO BID PRN Folbic 1 EACH tablet 1 tab-cap PO DAILY fexofenadine-pseudoephedrine [Tracey-D 24 Hour] 1 EACH tablet extended release 24 hr 1 tab-cap PO DAILY PRN Magic Mouthwash solution See Rx Instructions SS QID Qty: 240 2RF Rx Instructions: 1:1:1 viscous lido/benadryl/maalox Swish and Swallow four times a day; escitalopram oxalate 10 mg tablet 30 mg PO DAILY Qty: 180 3RF Rx Instructions: dose increase 03/05/22 esomeprazole magnesium [Nexium] 40 mg capsule,delayed release(DR/EC) 40 mg PO HS Qty: 90 3RF lorazepam 1 mg tablet 1 mg PO BID PRN (Reason: anxiety) Qty: 20 0RF magnesium 250 mg Tablet 400 mg PO DAILY hydroxychloroquine [Plaquenil] 200 mg tablet 400 mg PO HS acetaminophen 500 mg tablet 500 mg PO Q6H PRN (Reason: pain) Qty: 60 2RF ibuprofen 600 mg tablet 600 mg PO TID PRN (Reason: pain) Qty: 60 0RF Discharge Instructions Additional Instructions: Follow up with your surgeon as previously scheduled if you have any other concerns and can't reach your surgeon return to the emergency department for evaluation Medical Decision Making 47 yo female who last week underwent achilles tendon repair at [facility] that was uncomplicated per pt and was placed in a sugar tong splint comes in after she showered for the first time tonight and got the splint went by accident. She did not fall or sustain any injuries. The sugar tong splint is still intact, her surgical wounds on the lateral ankle and posterior ankle are intact and appear to be healing well. I reapplied the splint and rewrapped with enedina wraps, stable for d/c, advised to f/u with her surgeon and return precautions given Differential Diagnosis Differential Diagnosis: splint malfunction HPI General Date/Time Provider Initiated Documentation: 10/01/22 20:19. Limitations to Documentation: no limitations. Information obtained by: patient. History of Present Illness 47 year old F presents to the emergency department with the chief complaint of right ankle splint issue, described as moderate, and it has been constant. No relieving factors improve symptom(s), No exacerbating factors reported . Patient did receive the following treatments prior to arrival, none Related Data Home Medications Medication Instructions Recorded Confirmed [id number]-vyspajhhixelc-[id number] 250 2 tab PO BID PRN 07/22/12 09/16/22 mg-250 mg-65 mg tablet (Excedrin Migraine) ergocalciferol (vitamin D2) 1,250 1 cap PO .QWEEK #6 caps 07/22/12 09/16/22 mcg (50,000 unit) capsule ergocalciferol (vitamin D2) 10 mcg 1 tab PO PM 07/22/12 09/16/22 (400 unit) tablet folic acid-vit B6-vit B12 2.5 1 tab-cap PO DAILY 06/11/13 09/16/22 mg-25 mg-2 mg tablet (Folbic) fexofenadine-pseudoephedrine ER 1 tab-cap PO DAILY PRN 08/05/17 09/16/22 180 mg-240 mg tablet,ext.release 24 hr (Tracey-D 24 Hour) magnesium 250 mg tablet 400 mg PO DAILY 01/16/18 09/16/22 zolpidem 10 mg tablet 10 mg PO QHS 07/31/21 09/16/22 Magic Mouthwash See Rx Instructions SS QID #240 mL 10/31/21 09/16/22 ondansetron 4 mg disintegrating 4 - 8 mg PO BID PRN nausea and 02/25/22 09/16/22 tablet vomiting #20 tabs escitalopram oxalate 10 mg tablet 30 mg PO DAILY #180 tabs 03/05/22 09/16/22 hydroxychloroquine 200 mg tablet 400 mg PO HS 04/16/22 09/16/22 (Plaquenil) acetaminophen 500 mg tablet 500 mg PO Q6H PRN pain #60 tabs 04/17/22 09/16/22 ibuprofen 600 mg tablet 600 mg PO TID PRN pain #60 tabs 04/17/22 09/16/22 esomeprazole magnesium 40 mg 40 mg PO HS #90 caps 04/29/22 09/16/22 capsule,delayed release (Nexium) cyanocobalamin (vitamin B-12) 1,000 mcg IM QMONTH #10 mL 05/28/22 09/16/22 1,000 mcg/mL injection solution venlafaxine 150 mg 150 mg PO DAILY #30 caps 06/26/22 09/16/22 capsule,extended release 24 hr trazodone 100 mg tablet 300 mg PO QHS PRN insomnia #270 07/30/22 09/16/22 tabs lorazepam 1 mg tablet 1 mg PO BID PRN anxiety #20 tabs 09/08/22 09/16/22 dextroamphetamine-amphetamine 30 30 mg PO BID PRN add #56 tab-caps 09/16/22 09/16/22 mg tablet (Adderall) diltiazem HCl 240 mg 240 mg PO DAILY #90 caps 09/16/22 09/16/22 capsule,extended release 24 hr Previous Rx's Medication Instructions Recorded Magic Mouthwash See Rx Instructions SS QID #240 mL 10/31/21 ondansetron 4 mg disintegrating 4 - 8 mg PO BID PRN nausea and 02/25/22 tablet vomiting #20 tabs escitalopram oxalate 10 mg tablet 30 mg PO DAILY #180 tabs 03/05/22 acetaminophen 500 mg tablet 500 mg PO Q6H PRN pain #60 tabs 04/17/22 ibuprofen 600 mg tablet 600 mg PO TID PRN pain #60 tabs 04/17/22 esomeprazole magnesium 40 mg 40 mg PO HS #90 caps 04/29/22 capsule,delayed release (Nexium) cyanocobalamin (vitamin B-12) 1,000 mcg IM QMONTH #10 mL 05/28/22 1,000 mcg/mL injection solution venlafaxine 150 mg 150 mg PO DAILY #30 caps 06/26/22 capsule,extended release 24 hr trazodone 100 mg tablet 300 mg PO QHS PRN insomnia #270 07/30/22 tabs lorazepam 1 mg tablet 1 mg PO BID PRN anxiety #20 tabs 09/08/22 dextroamphetamine-amphetamine 30 30 mg PO BID PRN add #56 tab-caps 09/16/22 mg tablet (Adderall) diltiazem HCl 240 mg 240 mg PO DAILY #90 caps 09/16/22 capsule,extended release 24 hr Allergies Allergy/AdvReac Type Severity Reaction Status Date / Time pregabalin Allergy Intermediate Dry/Sore Verified 09/16/22 11:37 mouth Sulfa (Sulfonamide AdvReac Intermediate LUPUS Verified 09/16/22 11:37 Antibiotics) tetracycline AdvReac Mild vomiting Verified 09/16/22 11:37 codeine AdvReac Unknown VOMITING Verified 09/16/22 11:37 Opioids - Morphine Analogues AdvReac Unknown TACHYCARDIA Verified 09/16/22 11:37 General Stated Complaint: Orthopedic TREVA: 4 Review of Systems All systems reviewed & are unremarkable except as noted in HPI and below Constitutional Constitutional: Denies chills, Denies fever(s) and Denies weakness Cardiovascular Cardiovascular: Denies chest pain and Denies dyspnea Respiratory Respiratory: Denies cough and Denies dyspnea Gastrointestinal Gastrointestinal: Denies abdominal pain, Denies nausea and Denies vomiting Integumentary/Breasts Skin/Breast: Denies rash Neurologic Neurologic: Denies weakness PFSH All Active Problems (Updated 10/01/22 @ 23:01 by Chuckie Valencia MD) Aftercare for cast or splint check or change (Acute) Serrated polyp of colon (Acute) Right-sided chest pain (Acute) Chondromalacia of left knee (Acute) Partial tear of right Achilles tendon (Acute) Achilles tendinosis of right ankle (Acute) Achilles tendinitis (Acute) Anxiety (Chronic) Systemic lupus erythematosus (Chronic) Followed by Dr. Main with [facility] Endometriosis (Chronic) GERD with esophagitis (Acute) Major depressive disorder (Chronic) Vitamin B 12 deficiency (Chronic) Vitamin D deficiency (Acute) Mild intermittent asthma (Acute) Fibromyalgia (Chronic) Medial epicondylitis, left elbow (Acute) Steroid injection: 01/31/2020 Recurrent UTI (Acute) Chronic fatigue syndrome (Acute) due to Lupus Hyperlipidemia (Chronic) Tachycardia (Acute) Exertional shortness of breath (Acute) Neck pain, musculoskeletal (Acute) Occipital neuralgia (Acute) Pyelonephritis of right kidney (Acute) Flushing (Acute) Achilles tendon disorder (Acute) Pancreatic mass (Acute) UTI (urinary tract infection) (Acute) Pyelonephritis (Acute) Abdominal pain (Acute) Yeast vaginitis (Acute) Medical History Pyloric ulcer In 2019 Serrated adenoma of colon In 2010 Surgical History History of arthroscopic knee surgery Hx of esophagogastroduodenoscopy (12/07/18) S/P cholecystectomy (12/11/11) S/P colonoscopy (01/16/18) S/P medial meniscus repair of right knee Family History FAMILY HX Heart disease Mother Endometriosis hyst at 26 Sister Endometriosis diagnosed by and sxs Grandmother SLE (systemic lupus erythematosus) unknown age, but had renal dz Social History (Updated 09/20/22 @ 11:35 by Grace Woo) Smoking/Tobacco Use Status: Never Second Hand Exposure: Yes Smoking risk assessment performed?: Yes Alcohol Intake: current Alcohol Intake frequency: a few times a month Alcohol type: beer and other Drug use: Never Substance use type: does not use Household members: significant other Housing: apartment Number of Children: 2 Communication Needs: None current occupation: Nurse Pets and animals: Yes Pets and animals: cat(s) and dog(s) Sexually active: No Do you think of yourself as: straight/heterosexual Current gender identity: female What is your relationship status?: living with partner How often do you talk on the phone with friends or family?: three or more times per week How often do you get together with friends or relatives?: three or more times per week How often do you attend jewish or scientologist services?: decline to answer Do you belong to any clubs or organized social groups?: no Panel score (0-1 are the most socially isolated patients): 2 What type of physical activity do you participate in: walking and swimming Duration: 15-30 minutes/day Frequency: 3-4 times per week Kayleigh/Mandaeism: Congregational Special kayleigh needs: No Seatbelt use: always Helmet use: Yes Helmet use: sometimes Drive intox or ride w/intox route sales delivery driver: No Do you feel safe at home: Yes Do you feel safe in your relationship?: Yes Exam Const General: no acute distress Orientation: alert HENMT Head: normal to inspection Ears: external ears normal General nose exam: external nose normal Mouth: moist mucous membranes Eyes General: appearance normal, both eyes and all related structures Neck Neck: normal visual inspection Resp Effort & Inspection: normal respiratory effort and able to speak in complete sentences Cardio Rate: regular rate Skin General skin exam: no rashes or lesions noted Neuro General: patient alert and patient oriented x3 Extrem General: capillary refill normal Psych Mental Status: mental status grossly normal Course Vital Signs Vital signs: Vital Signs Temperature 36.8 C 10/01/22 20:12 Pulse 92 H 10/01/22 20:12 Respiratory Rate 18 10/01/22 20:12 Blood Pressure 135/90 10/01/22 20:12 Pulse Oximetry 98 10/01/22 20:12 Temperature 36.8 C 10/01/22 20:12 Temperature Source Temporal Artery Scan 10/01/22 20:12 Pulse 92 H 10/01/22 20:12 Respiratory Rate 18 10/01/22 20:12 Respiratory Effort Normal, Non-Labored 10/01/22 22:22 Blood Pressure 135/90 10/01/22 20:12 Blood Pressure Position Sitting 10/01/22 20:12 Pulse Oximetry 98 10/01/22 20:12 Oxygen Delivery Method Room Air 10/01/22 20:12 Oxygen Flow Rate 0 10/01/22 20:12 Pain Level 5 10/01/22 20:12
== END 2022-10-01 23:21 | disposition home or self-care (01) ==
PROVIDERS: Emergency Provider Emergency Medicine; PCP Family Medicine
DX: Z46.89 Encounter for fitting and adjustment of other specified devices (principal)
CPT/HCPCS: 99282

== ENCOUNTER 2022-10-30 03:58 | Outpatient (CLI) | payer MEDICAID, SELFPAY ==
[2022-10-30 14:33] LABS: Absolute Basophil Count 0.02 10^3/uL (0.0-0.2); Absolute Eosinophil Count 0.09 10^3/uL (0.0-0.7); Absolute Monocyte Count 0.42 10^3/uL (0.1-0.8); Absolute Neutrophil Count 3.39 10^3/uL (1.2-6.7); Basophils % 0.4; Eosinophils % 1.7; HCT 38.9 % (36.0-46.0); HGB 12.7 g/dL (11.2-15.7); Lymphocytes % 27.7; MCH 28.6 pg (27.0-33.0); MCHC 32.6 % (32.0-36.0); MCV 88 fL (80-95); MPV 9.4 fL (8.0-11.0); Monocytes % 7.7; Neutrophils % 62.5; Platelet Count 353 10^3/uL (130-400); RBC 4.44 10^6/uL (3.93-5.22); RDW 13.8 % (11.7-14.6); RDW-SD 44.4 fL; WBC 5.42 10^3/uL (4.4-10.8)
[2022-10-30 14:51] LABS: COMMENT (LAB VIEW ONLY) 72.09 mg/dL; PROTEIN 17.2 mg/dL; Prot/Crea Ur Ratio 0.23
[2022-10-30 16:00] LABS: Iron 47 ug/dL (50-170); Total Iron Binding Capacity 412 ug/dL (250-450); Transferrin Sat 11 % (15-50)
[2022-10-30 16:23] LABS: ALT 23 U/L (14-59); AST 18 U/L (15-37); Albumin 3.7 g/dL (3.4-5.0); Alkaline Phosphatase 90 U/L (46-116); Anion Gap 10.1 mmol/L (3-11); BUN 9 mg/dL (7-18); Bilirubin, Total 0.3 mg/dL (0.2-1.0); CO2 27.9 mmol/L (21.0-32.0); CREATININE 0.9 mg/dL (0.55-1.02); Calcium 8.9 mg/dL (8.5-10.1); Chloride 105 mmol/L (98-107); Estimated GFR 79.35 (mL/min/1.73m2); Ferritin 27 ng/mL (8-252); Glucose 95 mg/dL (74-106); Potassium 3.8 mmol/L (3.5-5.1); Sodium 143 mmol/L (136-145); Total Protein 7.3 g/dL (6.4-8.2); Vitamin B12 350 pg/mL (193-986)
[2022-10-30 16:50] LABS: Calculated LDL 119 mg/dL (<100); Cholesterol 203 mg/dL (<200); HDL Cholesterol 66 mg/dL (40-60); Triglyceride 92 mg/dL (<150)
[2022-11-04 13:36] LABS: Vitamin D 25 Total 25.4 ng/mL (30-100)
== END 2022-10-30 03:59 | disposition home or self-care (01) ==
PROVIDERS: PCP Family Medicine; Visit Provider Internal Medicine Rheumatology
DX: E78.5 Hyperlipidemia, unspecified (principal); M32.19 Other organ or system involvement in systemic lupus erythematosus
CPT/HCPCS: 36415; 80053; 80061; 82306; 82565; 82607; 82728; 83540; 83550; 84156; 85025

== ENCOUNTER 2022-12-19 21:40 | Outpatient (REF) | payer MEDICAID, SELFPAY | END 2022-12-19 21:41 | disposition home or self-care (01) | LOC: LBN 21:40 | PROVIDERS: PCP Family Medicine; Visit Provider Nurse Practitioner Family | DX: N39.0 Urinary tract infection, site not specified (principal) | CPT/HCPCS: 87077; 87086; 87186 ==

== ENCOUNTER → 2023-01-10 03:11 | Outpatient (CLI) | payer MEDICAID, SELFPAY ==
[2023-01-10] MEDS: Barium Sulfate 2% W/V-Creamy Vanilla Smoothie 450 ML BTL 900 ML PO (11:23)
[2023-01-10] MEDS: Omnipaque 350 MG/ML 500 ML BTL-Imaging package IJ (13:23)
[2023-01-10] MEDS: Normal Saline Flush 10 ML SYR IVP (13:26)
--- NOTE | 2023-01-10 13:35 | DI.CT_ITS ---
Exam(s) CT ABDOMEN PELVIS W EXAM: CT ABDOMEN PELVIS W CLINICAL HISTORY: recurr. abd pain for 2 weeks; hx of pancreatic lesion,k86.9,r10.9. TECHNIQUE: Imaging Protocol: Axial computed tomography images with coronal and sagittal reformatted images were created and reviewed CONTRAST MATERIAL: Intravenous: Omnipaque 350 Contrast volume:100 ml Oral: yes COMPARISON: CT ABD PELVIS WITH CONTRAST from 11/26/[address] ABDOMEN PELVIS W from 11/17/[address] ABDOMEN PELVIS WO/W from 02/15/[address] CHEST PE CTA from 07/23/2021 FINDINGS: ABDOMEN and PELVIS: Lung Bases: Normal where visualized. Liver: Normal density. No measurable mass. Gallbladder and biliary tract: Status post cholecystectomy. No radiodense calculus or dilation. Pancreas: Normal density, no abnormal calcifications or inflammatory process. No evidence of pancrea tic mass. Stable appearance since 2010 of somewhat nodular pancreatic tissue in the body and tail. Spleen: Normal. Kidneys: Normal size, contour and axis. No radiodense stones or obstructive uropathy. No suspicious m asses seen. Adrenal glands: No masses seen. Vasculature: Abdominal aorta non-dilated. Soft tissues: Unremarkable. Bladder: No gross wall thickening. No calculi.No focal mass. Bowel: No obstruction. No bowel wall thickening. Appendix is not seen. No inflammation at the bas e of the cecum. Normal quantity of stool. Small diverticulum at the descending duodenum. Peritoneal cavity: No ascites, collection or mesenteric inflammatory response. Bones: Unremarkable for age. Reproductive organs: Within normal limits. Lymph nodes: Unremarkable. IMPRESSION:: Unremarkable CT scan of the abdomen and pelvis. RADIATION DOSE DELIVERED: Total DLP DATA REPOSITORY: All CT scans at this facility are submitted to the National Radiology Data Registry (NRDR) Dose Index Registry (DIR) with the [employer] (ACR). RADIATION OPTIMIZATION: All CT scans at this facility use at least one of these dose optimization te chniques: automated exposure control; mA and/or kV adjustment per patient size (includes targeted exa ms where dose is matched to clinical indication); or iterative reconstruction.
== END ==
PROVIDERS: PCP Family Medicine; Visit Provider Family Medicine
DX: K86.9 Disease of pancreas, unspecified (principal); R10.9 Unspecified abdominal pain
CPT/HCPCS: 74177

== ENCOUNTER → 2023-02-18 02:29 | Outpatient (CLI) | payer MEDICAID, SELFPAY ==
--- NOTE | 2023-02-18 07:00 | DI.US_ITS ---
Exam(s) US PELVIS TRANSVAGINAL EXAM: US PELVIS TRANSVAGINAL CLINICAL HISTORY: R sided focal abd pain 6cm lateral to umbilicus,r10.9. TECHNIQUE: Transabdominal and transvaginal pelvic ultrasound was performed using standard protocol. COMPARISON: US PELVIS TRANSVAG from 08/28/2016 FINDINGS: Transabdominal portion of the examination was limited due to patient body habitus and overlying bowel . UTERUS: Position: Anteverted. Size: 5.8 long by 2.5 AP by 3.1 transverse cm Endometrium: 0.3 cm. Normal for patient's menstrual status. Myometrium: Unremarkable. Cervix: Unremarkable. OVARIES: The ovaries were not seen transabdominally or transvaginally. No adnexal masses are seen so nographically. CUL-DE-SAC: Free fluid: None. Other: None. IMPRESSION: 1. Normal-appearing uterus with endometrial stripe within normal limits. 2. The ovaries could not be visualized on this examination. 3. No suspicious adnexal masses are seen sonographically. DATA REPOSITORY:
--- NOTE | 2023-02-18 07:00 | DI.US_ITS ---
Exam(s) US HERNIA EXAM: US HERNIA CLINICAL HISTORY: 6cm diagonal to umbilicus. Focal constant dull ache,r10.9. TECHNIQUE: Ultrasound was performed using standard protocol. COMPARISON: No exams were available for comparison FINDINGS: Examination was limited by patient body habitus. Sonographic assessment utilizing grayscale and color Doppler imaging was performed and targeted to th e area of clinical concern. No soft tissue mass or abdominal wall hernia is seen. The appendix was not visualized on this examin ation. IMPRESSION: Unremarkable examination. DATA REPOSITORY:
== END ==
PROVIDERS: PCP Family Medicine; Visit Provider Obstetrics & Gynecology Gynecology
DX: R10.9 Unspecified abdominal pain (principal)
CPT/HCPCS: 76857; 76830; 76856

== ENCOUNTER 2023-03-25 15:07 | Outpatient (CLI) | payer MEDICAID, SELFPAY ==
--- NOTE | 2023-03-25 15:00 | RT.EKG_ITS ---
APPROVED REPORT Exam: Resting ECG Reason for Exam: ADD Patient Location: O HR:84 bpm ECG Measurements Heart Rate 84 AXIS MN 133 P 50 QRSd 96 QRS 63 QT 391 T 27 QTc 463 Conclusion Sinus rhythm...normal P axis, V-rate 50- 99 I have reviewed and interpreted ECG and agree with software generated interpretation.
== END 2023-03-25 15:08 | disposition home or self-care (01) ==
LOC: DI.CM 15:08
PROVIDERS: PCP Family Medicine; Visit Provider Family Medicine
DX: R07.9 Chest pain, unspecified (principal)
CPT/HCPCS: 93010

== ENCOUNTER 2023-03-25 16:43 | Outpatient (CLI) | payer MEDICAID, SELFPAY ==
[2023-03-25 16:09] LABS: Abs Immature Grans 0.01 10^3/uL (0.0-0.06); Absolute Basophil Count 0.05 10^3/uL (0.0-0.2); Absolute Eosinophil Count 0.03 10^3/uL (0.0-0.7); Absolute Lymphocyte Count 1.54 10^3/uL (1.2-3.4); Absolute Neutrophil Count 2.83 10^3/uL (1.2-6.7); Eosinophils % 0.6; HCT 40.2 % (36.0-46.0); HGB 12.9 g/dL (11.2-15.7); Immature Grans % 0.2; MCH 27.5 pg (27.0-33.0); MCHC 32.1 % (32.0-36.0); MCV 86 fL (80-95); MPV 9.9 fL (8.0-11.0); Monocytes % 10.1; Neutrophils % 57.1; Platelet Count 371 10^3/uL (130-400); RBC 4.69 10^6/uL (3.93-5.22); RDW 13.5 % (11.7-14.6); RDW-SD 42.1 fL; WBC 4.96 10^3/uL (4.4-10.8)
== END 2023-03-25 16:44 | disposition home or self-care (01) ==
LOC: LBO 16:45
PROVIDERS: PCP Family Medicine; Visit Provider Family Medicine
DX: R07.9 Chest pain, unspecified (principal)
CPT/HCPCS: 36415; 85025

== ENCOUNTER → 2023-05-13 02:58 | Outpatient (CLI) | payer MEDICAID, SELFPAY ==
--- NOTE | 2023-05-13 06:30 | DI.CT_ITS ---
Exam(s) CT ABDOMEN PELVIS CTA EXAM: CT ABDOMEN PELVIS CTA CLINICAL HISTORY: ? renal artery stenosis,UNCONTROLLED HYPERTENSION,I10. TECHNIQUE: Imaging Protocol: Axial CT angiography was performed with multi-slice acquisition and m ulti-planar and/or 3D reconstructions. CONTRAST MATERIAL: Intravenous: Omnipaque 350 Contrast volume:100mL Oral: No COMPARISON: CT ABD PELVIS WITH CONTRAST from 06/02/[address] CHEST W from 08/01/[address] ABDOMEN PELVIS W from 01/10/2023 FINDINGS: ABDOMEN AND PELVIS: Abdomen: Celiac axis/mesenteric arteries: No evidence of occlusion or significant stenosis. Renal Arteries: No evidence of occlusion or significant stenosis. There is a single renal artery perf using each kidney. No calcium is seen in the renal arteries. No aneurysm is seen. Aorta: No evidence of occlusion or significant stenosis. No aneurysm or dissection. Pelvis: Iliac Arteries: No evidence of occlusion or significant stenosis. Minimal atherosclerosis is seen in the right common iliac artery. Common Femoral Arteries: No evidence of occlusion or significant stenosis. ABDOMEN: Lung bases: There is a stable 4 mm nodule in the periphery of the left lower lobe. No follow-up is r ecommended. This is unchanged since 2018. Liver: Normal density. No measurable mass. Portal, Superior Mesenteric, and Splenic Veins: Unremarkable. Gallbladder and Biliary Tract: Status post cholecystectomy. No significant biliary ductal dilatation . Pancreas: Normal density, no abnormal calcifications or inflammatory process. Spleen: Normal. Adrenals: No masses seen. Kidneys: Normal size, contour and axis. No radiodense stones or obstructive uropathy. No masses seen. Bowel: No obstruction or bowel wall thickening. There are diverticula associated with the duodenum ad jacent to the head of the pancreas. No evidence of appendicitis. Peritoneal Cavity: No ascites, collection or mesenteric inflammatory response. No free air.There is a fat attenuation lesion associated with the sigmoid colon. This may represent epiploic appendagitis o r possible omental infarction. Mesenteric panniculitis cannot be excluded. Lymph Nodes: Within normal limits. Bones: Unremarkable for the patient's age. Soft Tissues: Unremarkable. PELVIS: Bladder: Symmetric distention, no gross wall thickening. Reproductive Organs: Unremarkable as visualized. Lymph Nodes: Within normal limits. Bones: Within normal limits. IMPRESSION: 1. No evidence of renal artery stenosis or occlusion. No renal artery calcification or aneurysm is se en. 2. Minimal artery calcifications seen only in the distal aspect of the right common iliac artery. Oth erwise no arterial calcification is seen on this examination. 3. Fat attenuation lesion adjacent to the sigmoid colon. This is of uncertain, if any clinical signif icance. Differential considerations include epiploic appendagitis or mesenteric inflammation. Please correlate clinically. RADIATION DOSE DELIVERED: 1,079.7mGy.cm Total DLP DATA REPOSITORY: All CT scans at this facility are submitted to the National Radiology Data Registry (NRDR) Dose Index Registry (DIR) with the [employer] (ACR). RADIATION OPTIMIZATION: All CT scans at this facility use at least one of these dose optimization te chniques: automated exposure control; mA and/or kV adjustment per patient size (includes targeted exa ms where dose is matched to clinical indication); or iterative reconstruction.
[2023-05-13 09:16] LABS: CREATININE 0.9 mg/dL (0.55-1.02); Estimated GFR 79.35 (mL/min/1.73m2)
[2023-05-13] MEDS: Normal Saline - Diluent 50 ML VIAL IJ (10:16)
[2023-05-13] MEDS: Omnipaque 350 MG/ML 100 ML BTL IJ (10:17)
[2023-05-13] MEDS: Normal Saline Flush 10 ML SYR IVP (10:18)
== END ==
PROVIDERS: PCP Family Medicine; Visit Provider Family Medicine
DX: I10 Essential (primary) hypertension (principal)
CPT/HCPCS: 74174; 82565; J3490

== ENCOUNTER 2023-05-15 16:19 | Outpatient (REF) | payer MEDICAID, SELFPAY ==
[2023-05-21 16:38] LABS: Urine Volume 4700 mL
== END 2023-05-15 16:20 | disposition home or self-care (01) ==
LOC: LBN 16:19
PROVIDERS: PCP Family Medicine; Visit Provider Family Medicine
DX: R03.0 Elevated blood-pressure reading, without diagnosis of hypertension (principal)
CPT/HCPCS: 81050; 82384

== ENCOUNTER → 2023-07-24 09:25 | Outpatient (BNVA) | payer MEDICARE, SELFPAY | PROVIDERS: PCP Family Medicine; Referring Provider Family Medicine; Visit Provider Physical Therapy Assistant | DX: Z12.11 Encounter for screening for malignant neoplasm of colon (principal) ==

== ENCOUNTER 2023-07-31 06:25 | Day surgery (SDC) | payer MEDICARE, SELFPAY ==
--- NOTE | 2023-07-30 20:50 | W.PM.DSUDISC ---
Date of service: 07/31/23 Time of Service: 07:59 Discharge Plan Disposition Patient Disposition: Home Condition: Good Discharge Details Reason For Visit: screening colonoscopy Attending Provider: Joss Avalos Primary Care Provider: Panfilo Walter Home Meds and New Rx's Prescriptions: Continued diltiazem HCl 240 mg capsule,extended release 24hr 240 mg PO DAILY Qty: 90 3RF cyanocobalamin (vitamin B-12) 1,000 mcg/mL solution 1,000 mcg IM QMONTH Qty: 10 2RF losartan 100 mg tablet 100 mg PO DAILY Qty: 90 3RF cyclobenzaprine 10 mg tablet 10 mg PO BID PRN (Reason: muscle spasm) Qty: 20 0RF albuterol sulfate 90 mcg/actuation aerosol powdr breath activated 2 inh inhalation Q6H PRN (Reason: shortness of breath or wheezing) Qty: 1 1RF hydrocodone-acetaminophen 5-325 mg tablet 1 tab PO Q6H MDD 3 PRN (Reason: severe pain) Qty: 12 0RF Rx Instructions: Take one tablet up to every 6 hours as needed for severe postoperative pain metoprolol tartrate 25 mg tablet 37.5 mg PO BID Qty: 180 2RF dextroamphetamine-amphetamine [Adderall] 30 mg tablet 30 mg PO BID MDD 2 PRN (Reason: add) Qty: 56 0RF Rx Instructions: Take 1 pill twice a day, administer doses at least 4-6 hours apart trazodone 100 mg tablet 300 mg PO QHS PRN (Reason: insomnia) Qty: 270 3RF Rx Instructions: dose increase (pt started to take 300 mg and it is effective) ergocalciferol (vitamin D2) 400 UNIT tablet 1 tab PO PM ergocalciferol (vitamin D2) 50,000 UNIT capsule 1 cap PO .QWEEK Qty: 6 Excedrin Migraine 1 EACH tablet 2 tab PO BID PRN Folbic 1 EACH tablet 1 tab-cap PO DAILY fexofenadine-pseudoephedrine [Tracey-D 24 Hour] 1 EACH tablet extended release 24 hr 1 tab-cap PO DAILY PRN Magic Mouthwash solution See Rx Instructions SS QID Qty: 240 2RF Rx Instructions: 1:1:1 viscous lido/benadryl/maalox Swish and Swallow four times a day; esomeprazole magnesium [Nexium] 40 mg capsule,delayed release(DR/EC) 40 mg PO HS Qty: 90 3RF ondansetron 4 mg tablet,disintegrating 4 - 8 mg PO BID PRN (Reason: nausea and vomiting) Qty: 20 0RF lorazepam 1 mg tablet 1 mg PO BID PRN (Reason: anxiety) Qty: 20 0RF escitalopram oxalate 10 mg tablet 30 mg PO DAILY Qty: 180 3RF Rx Instructions: dose increase 03/05/22 Wegovy 0.25 mg/0.5 mL pen injector 0.25 mg subcut QWEEK Qty: 2 0RF Rx Instructions: administer weeks 1 through 4 of therapy magnesium 250 mg Tablet 400 mg PO DAILY hydroxychloroquine [Plaquenil] 200 mg tablet 400 mg PO HS acetaminophen 500 mg tablet 500 mg PO Q6H PRN (Reason: pain) Qty: 60 2RF ibuprofen 600 mg tablet 600 mg PO TID PRN (Reason: pain) Qty: 60 0RF venlafaxine 150 mg capsule,extended release 24hr 150 mg PO QPM Discharge Instructions Additional Instructions: Ashley, we are able to complete your colonoscopy today without any difficulty. Your prep was excellent, and I could see everything just fine. I did not see any signs of tumors or any polyps. Based on your previous polyps, I still recommend a 5-year interval follow-up. If you have any questions at all, please do not hesitate to call or ask at any time. 1. If tolerated, consume a soft, low fiber diet for 1-2 days. 2[address] Do not drive, drink alcohol, operate machinery, make critical decisions, or do activities that require coordination or balance for 24 hours. 3. Because air was put into your colon during the procedure, expelling air from your rectum (passing gas or farting) is normal. 4. You may not have a bowel movement for 1-3 days because of the colonoscopy prep. This is normal. 5. Go directly to the emergency room if you notice any of the following: Develop chills (warm to touch), or if you have a thermometer and your temperature is above 101 Difficulty breathing or difficultly swallowing Persistent vomiting Severe abdominal pain, other than gas cramps Severe chest pain Black, tarry stools Any bleeding ? exceeding one tablespoon 6. Call your physician if the site where your intravenous was started becomes red, swollen, painful, and warm to touch. 7. Your physician has reviewed your pre-procedure medications. Please continue to take those medications as previously ordered. You will be given specific information/education regarding any changes to your medications before leaving. Activity:: Activity as Tolerated Diet:: As Tolerated Discharge Orders Discharge Orders: Discharge Order (Routine); Ordered 07/30/23 Ordered By: Joss Avalos DS: Diagnosis Discharge Diagnosis (1) Encounter for screening colonoscopy: Status: Resolved Asessment and Plan: Negative screening colonoscopy; based on sessile serrated adenoma on previous colonoscopy recommend 5-year interval
--- NOTE | 2023-07-30 20:58 | W.COLOREPORT ---
Date of service: 07/31/23 Time of Service: 08:00 Colonoscopy Report Date of procedure: 07/31/23 Pre-op diagnosis general: screening colonoscopy Post-op diagnosis procedure note: other (Negative screening colonoscopy) Procedure: colonoscopy Surgeon: Joss Avalos Anesthesia Type: General:No Airway Estimated blood loss (mL): 0 Pathology: none sent Complications: None Disposition: same day Indications: Ashley is a 48 year old woman with a family history of colon cancer who needs her next screening colonoscopy Prep: Miralax/Dulcolax Procedure Start Time: 07:39 Procedure End Time: 07:50 Retraction Time: 5 Findings: Normal screening colonoscopy Procedure Description: After the induction of monitored anesthetic care, and with the patient in left lateral decubitus position, I began by performing an external anorectal exam.? Perineum and skin were normal, as was the anal verge.? There was no evidence of external hemorrhoids.? Next, I performed a digital rectal exam.? I did not appreciate any abnormal findings.? Next, I advanced a colonoscope into the rectal vault.? I performed retroflexion.? This was normal.? Using insufflation, I then advanced the colonoscope beyond the rectal folds and into the sigmoid colon before advancing towards the cecum.? The scope was noted to be in the cecum by identification of the ileocecal valve and appendiceal orifice.? I then began withdrawing the colonoscope using repeated irrigation as necessary for full evaluation of the colonic mucosa. ?Once the scope was withdrawn to the level of the rectum, great care was taken to examine portions of the rectal folds.? I did not see any signs of tumors, polyps, or any other worrisome pathology. Finally, the scope was withdrawn and the patient was brought to the same-day surgery recovery unit as the anesthetic wore off. ?The findings and instructions were shared with the patient prior to discharge. [place] Bowel Prep [place] Bowel Prep Right Colon: 3 Left Colon: 3 Transverse Colon: 3 Total Score: 9
[2023-07-31] VITALS (7 sets, daily range): BP systolic 100–145; BP diastolic 43–95; PULSE 70–86; RESP 15–23; TEMP 36.3–36.8; O2SAT 97–99; BMI 46.2
[2023-07-31] MEDS: Lactated Ringers 1,000 ML 80 ML IV (06:46)
--- NOTE | 2023-07-31 07:07 | W.ANESPRE ---
General Info Date of Service Date Performed: 07/31/23 Height: 5 ft 7 in Weight: 133.8 kg Body Mass Index (BMI): 46.2 Surgical Procedure: Operation Date: 07/31/23 07:35 Proposed Procedure Side Surgeon mei Avalos MD Meds Allergies and Home Medications Allergies Allergy/AdvReac Type Severity Reaction Status Date / Time pregabalin Allergy Intermediate Dry/Sore Verified 07/31/23 06:31 mouth Sulfa (Sulfonamide AdvReac Intermediate LUPUS Verified 07/31/23 06:31 Antibiotics) tetracycline AdvReac Mild vomiting Verified 07/31/23 06:31 codeine AdvReac Unknown VOMITING Verified 07/31/23 06:31 Opioids - Morphine Analogues AdvReac Unknown TACHYCARDIA Verified 07/31/23 06:31 propofol AdvReac Other (See Verified 07/31/23 06:31 Comment) Home Medication Medication Instructions Recorded [id number] 250 2 tab PO BID PRN 07/22/12 mg-250 mg-65 mg tablet (Excedrin Migraine) ergocalciferol (vitamin D2) 1,250 1 cap PO .QWEEK #6 caps 07/22/12 mcg (50,000 unit) capsule ergocalciferol (vitamin D2) 10 mcg 1 tab PO PM 07/22/12 (400 unit) tablet folic acid-vit B6-vit B12 2.5 1 tab-cap PO DAILY 06/11/13 mg-25 mg-2 mg tablet (Folbic) fexofenadine-pseudoephedrine ER 1 tab-cap PO DAILY PRN 08/05/17 180 mg-240 mg tablet,ext.release 24 hr (Tracey-D 24 Hour) magnesium 250 mg tablet 400 mg PO DAILY 01/16/18 Magic Mouthwash See Rx Instructions SS QID #240 mL 10/31/21 hydroxychloroquine 200 mg tablet 400 mg PO HS 04/16/22 (Plaquenil) acetaminophen 500 mg tablet 500 mg PO Q6H PRN pain #60 tabs 04/17/22 ibuprofen 600 mg tablet 600 mg PO TID PRN pain #60 tabs 04/17/22 cyanocobalamin (vitamin B-12) 1,000 mcg IM QMONTH #10 mL 05/28/22 1,000 mcg/mL injection solution trazodone 100 mg tablet 300 mg (3 x 100 mg) PO QHS PRN 07/30/22 insomnia #270 tabs diltiazem HCl 240 mg 240 mg PO DAILY #90 caps 09/16/22 capsule,extended release 24 hr esomeprazole magnesium 40 mg 40 mg PO HS #90 caps 01/18/23 capsule,delayed release (Nexium) albuterol sulfate 90 mcg/actuation 2 inh inhalation Q6H PRN shortness 05/07/23 breath activated powder inhaler of breath or wheezing #1 ea cyclobenzaprine 10 mg tablet 10 mg PO BID PRN muscle spasm #20 05/07/23 tabs losartan 100 mg tablet 100 mg PO DAILY #90 tabs 05/07/23 hydrocodone 5 mg-acetaminophen 325 1 tab PO Q6H PRN severe pain #12 05/13/23 mg tablet tabs lorazepam 1 mg tablet 1 mg PO BID PRN anxiety #20 tabs 05/13/23 ondansetron 4 mg disintegrating 4 - 8 mg (1 - 2 x 4 mg) PO BID PRN 05/13/23 tablet nausea and vomiting #20 tabs escitalopram oxalate 10 mg tablet 30 mg (3 x 10 mg) PO DAILY #180 07/09/23 tabs dextroamphetamine-amphetamine 30 30 mg PO BID PRN add #56 tab-caps 07/24/23 mg tablet (Adderall) metoprolol tartrate 25 mg tablet 37.5 mg (1.5 x 25 mg) PO BID #180 07/24/23 tabs venlafaxine 150 mg 150 mg PO QPM 07/30/23 capsule,extended release 24 hr semaglutide (weight loss) 0.25 0.25 mg (0.5 mL) subcut QWEEK #2 mL 07/31/23 mg/0.5 mL subcutaneous pen injector (Kade) Current Visit Medications: Current Medications Generic Name Dose Route Start Last Admin Trade Name Freq PRN Reason Stop Dose Admin Hyoscyamine Sulfate 0.125 mg 07/30/23 21:00 Hyoscyamine 0.125 Mg Sl/Oral/Chew SL 08/29/23 20:59 DIRECTED PRN Ringer's Solution 1,000 mls @ 80 mls/hr 07/31/23 06:00 07/31/23 06:46 IV 08/29/23 23:59 80 mls/hr INFUSION VICTORIA Administration IV Miscellaneous Supplies 1 each 07/31/23 06:00 Iv Access IV 08/29/23 23:59 DIRECTED VICTORIA Sodium Chloride 0 ml 07/31/23 06:00 Normal Saline Flush 10 Ml Syr IV 08/29/23 23:59 PRN PRN Sodium Chloride 0 ml 07/31/23 06:00 Normal Saline 10 Ml Vial IJ 08/29/23 23:59 DIRECTED PRN Sterile Water 0 ml 07/31/23 06:00 Water,Injection,Sterile 10 Ml Vial IJ 08/29/23 23:59 DIRECTED PRN PFSH Active Problems Active Problems: Problem Status Onset Code Neck pain M54.2 Uncontrolled hypertension I10 Elevated blood pressure reading without diagnosis of hypertension R03.0 Menopausal and female climacteric states N95.1 Pancreatic lesion K86.9 Obesity E66.9 Serrated polyp of colon K63.5 Right-sided chest pain R07.9 Chondromalacia of left knee M94.262 Partial tear of right Achilles tendon S86.011A Achilles tendinosis of right ankle M67.873 Achilles tendinitis M76.60 Status post arthroscopy of left knee 04/17/22 Z98.890 Anxiety F41.9 Yeast vaginitis B37.3 Abdominal pain R10.9 Pyelonephritis N12 UTI (urinary tract infection) N39.0 Pancreatic mass K86.89 Achilles tendon disorder M67.979 Flushing R23.2 Pyelonephritis of right kidney N12 Occipital neuralgia M54.81 Neck pain, musculoskeletal M54.2 Exertional shortness of breath R06.02 Tachycardia R00.0 Hyperlipidemia E78.5 Chronic fatigue syndrome R53.82 Recurrent UTI N39.0 Medial epicondylitis, left elbow M77.02 Fibromyalgia M79.7 Mild intermittent asthma J45.20 Vitamin D deficiency E55.9 Vitamin B 12 deficiency E53.8 Major depressive disorder F32.9 GERD with esophagitis K21.00 Endometriosis N80.9 Systemic lupus erythematosus M32.9 Medical History Medical History HTN (hypertension) is monitoring BP with PCP and has increased BP med (Losartan) Serrated adenoma of colon In 2010 Pyloric ulcer In 2019 Medical History Comments:: Patient states due to her SLE she has a reaction to Propofol, states she had decreased body temp and chills, migraines, and head to toe body pain. Surgical History Surgical History S/P medial meniscus repair of right knee Hx of esophagogastroduodenoscopy (12/07/18) S/P colonoscopy (01/16/18) S/P cholecystectomy (12/11/11) History of arthroscopic knee surgery Tobacco Smoking/Tobacco Use Status: Never Second hand exposure: Yes Alcohol Alcohol Intake: current Alcohol intake frequency: a few times a month Alcohol type: beer and other Substance Use Substance use: Never Substance use type: does not use Vital Signs and Lab Results Vital Signs Most Recent Vital Signs in EMR: Most Recent Vital Signs Temp Pulse Resp BP Pulse Ox 36.6 C 86 18 145/95 H 98 07/31/23 06:36 07/31/23 06:36 07/31/23 06:36 07/31/23 06:36 07/31/23 06:36 Lab Results Blood Type / Crossmatch: No Data to Display Complete Blood Count: No Data to Display Complete Metabolic Panel: No Data to Display Liver Function Panel: No Data to Display Coagulation Panel: No Data to Display Cardiac Panel: No Data to Display Arterial Blood Gas: No Data to Display Venous Blood Gas: No Data to Display Pancreas Panel: No Data to Display Thyroid Panel: No Data to Display Infectious Disease: No Data to Display Blood Cultures: No Data to Display Toxicology Panel: No Data to Display Panel: No Data to Display Imaging and Studies Imaging and Studies Study information below may be from another EMR and interpreted by another provider. Please see original notes in EMR for more complete details. EKG Summary: 07/20: sinus, possible iRBBB Echocardiogram Summary: 2016: LVEF 60%, CT Summary: 05/2020: coronary ca score, 0 score - consistent with no plaque burden Anesthesia Assessment and Plan Anesthesia History Personal History: Other Family History: No Family History of Anesthesia Complications Exercise Tolerance Exercise Tolerance: Metabolic Equivalents>4 Cardiac & Pulmonary Exam Cardiac Exam: Normal S1/S2 Heart Sounds Pulmonary Exam: Clear Bilateral Breath Sounds Implantable Cardiac Device Does patient have a Pacemaker or an ICD?: No Airway Exam Known Difficult Airway: No Mallampati Class: 2 Mouth Opening: Normal (> 3cm) Thyromental Distance: Greater than 3 cm Neck Range of Motion: Full ROM Neck Circumference: Normal Teeth Condition: Normal Dentition ASA Classification ASA Score: ASA 2 Emergency Case?: No NPO Status NPO Status: NPO Clears >2 hours, Solids >8 hours Status Status: Not Relevant due to Medical History Anesthesia Plan Resuscitation Status: Full Code Anesthesia Technique: General Anesthesia Airway Planned: Natural Airway Monitors Used: Standard Monitors
--- NOTE | 2023-07-31 08:24 | W.ANESPOSTOP ---
Postoperative Evaluation Date, Time and Location Date Performed: 07/31/23 Time Performed: 08:24 Patient Location: PACU Vital Signs Most Recent Imported Vital Signs: Most Recent Vital Signs Temp Pulse Resp BP Pulse Ox 36.6 C 80 16 133/87 99 07/31/23 08:13 07/31/23 08:13 07/31/23 08:13 07/31/23 08:13 07/31/23 08:13 Pain Score Most Recent Pain Score: Most Recent Pain Score Pain Level 0 07/31/23 06:36 Assessment Mental Status: Awake (Alert & Oriented to Patient Baseline) Airway and Respiratory Function: Patent airway with normal (patient baseline) respiratory exam Cardiovascular Function: Hemodynamically Stable Hydration Status: Adequately Hydrated Nausea & Vomiting: No Nausea or Vomiting Pain: Pt. Denies Any Pain Peripheral Nerve Block: Patient did not receive a nerve block Postoperative Comments:: No joint pain post Propofol. Will have pt check in once home to confirm tolerance to Propofol. Terri Quiroz CRNA
== END 2023-07-31 06:26 | disposition home or self-care (01) ==
LOC: SUR 06:26
PROVIDERS: PCP Family Medicine; Visit Provider Surgery
PROC: 0DJD8ZZ Inspection of Lower Intestinal Tract, Via Natural or Artificial Opening Endoscopic (ICD-10-PCS; CPT 45378; principal; 2023-07-31 07:30)
DX: Z12.11 Encounter for screening for malignant neoplasm of colon (principal); M32.9 Systemic lupus erythematosus, unspecified
CPT/HCPCS: G0105; J1885; J2001; J2704

== ENCOUNTER 2023-08-05 09:09 | Outpatient (CLI) | payer MEDICARE, SELFPAY ==
[2023-08-05 08:33] LABS: Absolute Basophil Count 0.03 10^3/uL (0.0-0.2); Absolute Lymphocyte Count 1.53 10^3/uL (1.2-3.4); Absolute Monocyte Count 0.39 10^3/uL (0.1-0.8); Absolute Neutrophil Count 2.37 10^3/uL (1.2-6.7); Basophils % 0.7 %; Eosinophils % 2.3 %; HCT 38.1 % (36.0-46.0); HGB 12.1 g/dL (11.2-15.7); Lymphocytes % 34.6 %; MCH 27.9 pg (27.0-33.0); MCHC 31.8 % (32.0-36.0); MCV 88 fL (80-95); MPV 9.6 fL (8.0-11.0); Monocytes % 8.8 %; Neutrophils % 53.6 %; Platelet Count 324 10^3/uL (130-400); RBC 4.34 10^6/uL (3.93-5.22); RDW 13.8 % (11.7-14.6); WBC 4.42 10^3/uL (4.4-10.8)
[2023-08-05 09:29] LABS: AST 17 U/L (15-37); Albumin 3.5 g/dL (3.4-5.0); Alkaline Phosphatase 105 U/L (46-116); Anion Gap 10.1 mmol/L (3-11); BUN 8 mg/dL (7-18); Bilirubin, Total 0.3 mg/dL (0.2-1.0); CO2 29.9 mmol/L (21.0-32.0); Calcium 8.8 mg/dL (8.5-10.1); Chloride 103 mmol/L (98-107); Estimated GFR 69.49 (mL/min/1.73m2); Glucose 121 mg/dL (74-106); Potassium 3.4 mmol/L (3.5-5.1); Sodium 143 mmol/L (136-145); Total Protein 7.3 g/dL (6.4-8.2)
[2023-08-05 09:44] LABS: ALT 24 U/L (14-59)
== END 2023-08-05 09:10 | disposition home or self-care (01) ==
LOC: LBO 09:09
PROVIDERS: PCP Family Medicine; Visit Provider Internal Medicine Rheumatology
DX: M32.9 Systemic lupus erythematosus, unspecified (principal)
CPT/HCPCS: 36415; 80053; 85025

== ENCOUNTER 2023-12-23 19:47 | Outpatient (REF) | payer OTHER, SELFPAY | END 2023-12-23 19:48 | disposition home or self-care (01) | LOC: LBO 19:47 | PROVIDERS: PCP Family Medicine; Visit Provider Family Medicine | DX: N39.0 Urinary tract infection, site not specified (principal); E66.9 Obesity, unspecified; I10 Essential (primary) hypertension; M54.9 Dorsalgia, unspecified; R11.0 Nausea; R00.0 Tachycardia, unspecified | CPT/HCPCS: 87077; 87086; 87186 ==

== ENCOUNTER 2024-01-29 12:12 | Outpatient (CLI) | payer OTHER, SELFPAY ==
[2024-01-29 12:02] LABS: Abs Immature Grans 0.01 10^3/uL (0.0-0.06); Absolute Basophil Count 0.04 10^3/uL (0.0-0.2); Absolute Monocyte Count 0.46 10^3/uL (0.1-0.8); Absolute Neutrophil Count 3.75 10^3/uL (1.2-6.7); Basophils % 0.6 %; Eosinophils % 1.6 %; HCT 42.5 % (36.0-46.0); Immature Grans % 0.2 %; Lymphocytes % 30.4 %; MCH 29.9 pg (27.0-33.0); MCHC 32.9 % (32.0-36.0); MCV 91 fL (80-95); Monocytes % 7.3 %; Neutrophils % 59.9 %; Platelet Count 366 10^3/uL (130-400); RBC 4.69 10^6/uL (3.93-5.22); RDW 12.9 % (11.7-14.6); RDW-SD 42.6 fL; WBC 6.26 10^3/uL (4.4-10.8)
[2024-01-29 12:06] LABS: COMMENT (LAB VIEW ONLY) 106.26 mg/dL; PROTEIN 32.7 mg/dL
[2024-01-29 12:34] LABS: ALT 18 U/L (14-59); AST 14 U/L (15-37); Albumin 3.7 g/dL (3.4-5.0); Alkaline Phosphatase 109 U/L (46-116); BUN 5 mg/dL (7-18); Bilirubin, Total 0.37 mg/dL (0.2-1.0); CREATININE 1.1 mg/dL (0.55-1.02); Calcium 9.2 mg/dL (8.5-10.1); Chloride 103 mmol/L (98-107); Estimated GFR 61.98 (mL/min/1.73m2); Ferritin 21 ng/mL (8-252); Glucose 104 mg/dL (74-106); Potassium 3.2 mmol/L (3.5-5.1); Sodium 143 mmol/L (136-145); Total Protein 8.2 g/dL (6.4-8.2); Vitamin D 25 Total 29.5 ng/mL (30-100)
[2024-01-29 13:01] LABS: Iron 54 ug/dL (50-170); Total Iron Binding Capacity 467 ug/dL (250-450); Transferrin Sat 12 % (15-50)
== END 2024-01-29 12:13 | disposition home or self-care (01) ==
LOC: LBO 12:12
PROVIDERS: PCP Family Medicine; Visit Provider Internal Medicine Rheumatology
DX: M32.9 Systemic lupus erythematosus, unspecified (principal); E55.9 Vitamin D deficiency, unspecified; D50.9 Iron deficiency anemia, unspecified
CPT/HCPCS: 36415; 80053; 82306; 82565; 82728; 83540; 83550; 84156; 85025

== ENCOUNTER 2024-02-04 15:55 | Outpatient (REF) | payer OTHER, SELFPAY ==
--- NOTE | 2024-02-04 15:55 | PAPFT_PTH ---
PATIENT: Ashley Cedeno LOC: [facility] U#:[id number] AGE/SX: 48/F ROOM: RE02/04/[address]: Arelis Elena : 1975 BED: DIS: 02/04/2024 SPEC #: [id number] RECD: 02/04/24 17:56 STATUS: JOSE RELeanna #: [id number] LESLIE: 02/04/24 15:[address]: Arelis Elena DEPT: [facility] Cytology RECD BY: Ila Mandel ENTERED: 02/04/24 17:56 SP TYPE: PAPFT OTHR DR: Panfilo Walter MD Tissues: 1 - CX/ENDOCX FOR PAP SMEARS Procedures: PAP THIN PREP/[facility] Screening HPV DNA PROBE Comments: [id number] (HPV 16 & 18/45)
== END 2024-02-04 15:56 | disposition home or self-care (01) ==
LOC: LBN 15:55
PROVIDERS: PCP Family Medicine; Visit Provider Obstetrics & Gynecology Gynecology
DX: N95.1 Menopausal and female climacteric states (principal); Z12.39 Encounter for other screening for malignant neoplasm of breast; Z01.411 Encounter for gynecological examination (general) (routine) with abnormal findings
CPT/HCPCS: 88142; 87624

== ENCOUNTER 2024-02-18 18:52 | Emergency (ER) | payer OTHER, SELFPAY ==
--- NOTE | 2024-02-18 18:45 | RT.EKG_ITS ---
APPROVED REPORT Exam: Resting ECG Reason for Exam: acute abnormal chest sensation Patient Location: E HR:110 bpm ECG Measurements Heart Rate 110 AXIS WA 144 P 47 QRSd 89 QRS 67 QT 330 T 6 QTc 447 Conclusion Sinus tachycardia...rate> 99 Low voltage, precordial leads...precordial leads <1.0mV
[2024-02-18 19:06] VITALS: BP 122/90; PULSE 120; RESP 20; TEMP 36.8; O2SAT 98
[2024-02-18 19:10] VITALS: BP 122/90; PULSE 120; RESP 20; TEMP 36.8; O2SAT 98
--- NOTE | 2024-02-18 19:15 | DI.CT_ITS ---
Exam(s) CT HEAD WO EXAM: CT HEAD WO CLINICAL HISTORY: headache. TECHNIQUE: Imaging Protocol: Axial computed tomography images with coronal and sagittal reformatted images were created and reviewed COMPARISON: CT HEAD WITH CONTRAST from 07/06/2015 FINDINGS: There are no skull fractures. There is no fluid in the visualized paranasal sinuses. There is no evidence of intracranial hemorrhage, mass effect, or shift of midline structures. There are no extra-axial fluid collections. The ventricles are not enlarged or shifted and there is no blo od within the ventricular system nor within the basal cisterns. IMPRESSION: No acute intracranial findings on this noninfused CT scan of the brain. RADIATION DOSE DELIVERED: 823.06mGy.cm Total DLP DATA REPOSITORY: All CT scans at this facility are submitted to the National Radiology Data Registry (NRDR) Dose Index Registry (DIR) with the [employer] (A[employer]). RADIATION OPTIMIZATION: All CT scans at this facility use at least one of these dose optimization te chniques: automated exposure control; mA and/or kV adjustment per patient size (includes targeted exa ms where dose is matched to clinical indication); or iterative reconstruction.
--- NOTE | 2024-02-18 19:15 | DI.CT_ITS ---
Exam(s) CT THORAX ABD/PEL CTA EXAM: CT THORAX ABD/PEL CTA CLINICAL HISTORY: chest pain radiating to the back and abdomen. TECHNIQUE: Imaging Protocol: Axial computed tomography images with coronal and sagittal reformatted images were created and reviewed CONTRAST MATERIAL: Intravenous: Omnipaque 350 Contrast volume:100 ml Oral: None COMPARISON: CT CT ABDOMEN PELVIS CTA from 05/13/2023 FINDINGS: CHEST: AORTA: The diameter of the ascending thoracic aorta is normal. There is no evidence of aortic dissec tion. Incidentally noted is independent origin of the left vertebral artery off of the aortic arch. Abdominal aorta appears unremarkable. No aneurysm. No dissection. Iliac arteries also unremarkable with no evidence of aneurysm nor dissection. Common femoral arteries appear unremarkable. There is no significant atherosclerotic disease in the aorta. Origins of the great vessels off the a ortic arch are nonstenotic there is also no stenosis at the origin the celiac and SMA arteries nor of the bilateral renal arteries. The inferior mesenteric artery is patent. There is no stenosis at th e aortic bifurcation nor within the aortoiliac segments. LUNGS: No infiltrates nor pleural effusions. No ominous pulmonary nodules. No pneumothorax.. MEDIASTINUM: There is no hilar nor mediastinal adenopathy. Visualized thyroid unremarkable. CARDIAC: Heart size is normal. There is no pericardial effusion. AORTA: Caliber of the thoracic aorta is within normal limits.There is no evidence of aortic dissectio n. See above ABDOMEN: There is no evidence of abdominal aortic aneurysm nor dissection.There is no aneurysmal dilatation of the common iliac arteries.The celiac and superior mesenteric arteries are patent.See above There is no ascites. LIVER: There are no focal hepatic lesions nor dilatation of intrahepatic ducts. GALLBLADDER/BILIARY: Gallbladder surgically absent. CBD is not dilated. PANCREAS: No evidence of pancreatic mass nor dilatation of the pancreatic duct. SPLEEN: Spleen is not enlarged. There are no intrasplenic lesions. ADRENALS: There are no significant adrenal masses. KIDNEYS: No cysts evident. No calculi nor hydronephrosis. No solid renal masses. ABDOMINAL AORTA: Unremarkable. See above LYMPH NODES: There is no retroperitoneal nor para-aortic adenopathy. No obvious mesenteric masses. ABDOMINAL WALL: No evidence of significant anterior abdominal wall hernia. GI: There is no evidence of bowel obstruction, free air, nor abscess.No ischemic appearing bowel loop s. PELVIS: LYMPH NODES: There is no intrapelvic nor inguinal adenopathy. GI: No evidence of appendicitis.No evidence of sigmoid diverticulitis. URINARY BLADDER: No calculi nor masses evident REPRODUCTIVE: Uterus and adnexal regions unremarkable. OSSEOUS: No significant osseous lesions. No fractures. Chronic disc space narrowing at L2-3 level. Also vacuum phenomenon within this diminished disc space . IMPRESSION: 1. No evidence of aortic aneurysm nor aortic dissection. No pericardial effusion. 2. No significant atherosclerotic involvement in the aorta and its branches. 3. Previous cholecystectomy. The biliary tree is not dilated. RADIATION DOSE DELIVERED: 978.98mGy.cm Total DLP DATA REPOSITORY: All CT scans at this facility are submitted to the National Radiology Data Registry (NRDR) Dose Index Registry (DIR) with the [employer] (ACR). RADIATION OPTIMIZATION: All CT scans at this facility use at least one of these dose optimization te chniques: automated exposure control; mA and/or kV adjustment per patient size (includes targeted exa ms where dose is matched to clinical indication); or iterative reconstruction.
--- NOTE | 2024-02-18 19:21 | W.ED.GENAD ---
Discharge Plan Disposition Patient Disposition: Home Condition: Stable Discharge Details Clinical Impression: Acute hypokalemia, Tingling, Chest pain Primary Care Provider: Panfilo Walter ED Provider: Chuckie Valencia [place] Meds and New Rx's Prescriptions: New cephalexin 500 mg tablet 500 mg PO QID Qty: 28 0RF Continued diltiazem HCl 240 mg capsule,extended release 24hr 240 mg PO DAILY Qty: 90 3RF cyanocobalamin (vitamin B-12) 1,000 mcg/mL solution 1,000 mcg IM QMONTH Qty: 10 2RF naloxone [Narcan] 4 mg/actuation spray,non-aerosol 4 mg intranasal Q3M PRN (Reason: opioid overdose) Qty: 2 0RF Rx Instructions: spray 1 dose into ONE nostril; alternate nostrils w each dose until help arrives losartan 100 mg tablet 100 mg PO DAILY Qty: 90 3RF albuterol sulfate 90 mcg/actuation aerosol powdr breath activated 2 inh inhalation Q6H PRN (Reason: shortness of breath or wheezing) Qty: 1 1RF hydrocodone-acetaminophen 5-325 mg tablet 1 tab PO Q6H MDD 3 PRN (Reason: severe pain) Qty: 12 0RF Rx Instructions: Take one tablet up to every 6 hours as needed for severe postoperative pain ondansetron 8 mg tablet,disintegrating 8 mg PO BID PRN (Reason: nausea and vomiting) Qty: 60 2RF trazodone 100 mg tablet 300 mg PO QHS PRN (Reason: insomnia) Qty: 270 3RF Rx Instructions: dose increase (pt started to take 300 mg and it is effective) ergocalciferol (vitamin D2) 400 UNIT tablet 1 tab PO PM ergocalciferol (vitamin D2) 50,000 UNIT capsule 1 cap PO .QWEEK Qty: 6 Excedrin Migraine 1 EACH tablet 2 tab PO BID PRN Folbic 1 EACH tablet 1 tab-cap PO DAILY fexofenadine-pseudoephedrine [Tracey-D 24 Hour] 1 EACH tablet extended release 24 hr 1 tab-cap PO DAILY PRN Magic Mouthwash solution See Rx Instructions SS QID Qty: 240 2RF Rx Instructions: 1:1:1 viscous lido/benadryl/maalox Swish and Swallow four times a day; escitalopram oxalate 10 mg tablet 30 mg PO DAILY Qty: 180 3RF Rx Instructions: dose increase 03/05/22 venlafaxine 150 mg capsule,extended release 24hr 150 mg PO QPM Qty: 90 3RF esomeprazole magnesium [Nexium] 40 mg capsule,delayed release(DR/EC) 40 mg PO HS Qty: 90 3RF metoprolol tartrate 25 mg tablet 37.5 mg PO BID Qty: 180 2RF spironolactone 50 mg tablet 50 mg PO DAILY Qty: 90 3RF Rx Instructions: increased dose 10/16/23 hydrocodone-acetaminophen 5-325 mg tablet 1 tab PO Q6H MDD 3 PRN (Reason: severe pain) Qty: 10 0RF Rx Instructions: back pain semaglutide (weight loss) 2.4 mg/0.75 mL pen injector 2.4 mg subcut QWEEK Qty: 3 5RF Rx Instructions: administer weeks 1 through 4 of therapy dextroamphetamine-amphetamine [Adderall] 30 mg tablet 30 mg PO BID MDD 2 PRN (Reason: add) Qty: 56 0RF Rx Instructions: Take 1 pill twice a day, administer doses at least 4-6 hours apart lorazepam 1 mg tablet 1 mg PO BID PRN (Reason: anxiety) Qty: 20 0RF magnesium 250 mg Tablet 400 mg PO DAILY hydroxychloroquine [Plaquenil] 200 mg tablet 400 mg PO HS ibuprofen 600 mg tablet 600 mg PO TID PRN (Reason: pain) Qty: 60 0RF Discharge Instructions Additional Instructions: Your blood work showed that your potassium was mildly low, your urine showed signs of infection. Otherwise your lab work and imaging did not show any concerning findings. If your symptoms continue follow-up with your primary care provider within 1 to 2 weeks If you feel more ill, have high fevers or severe chest pain or difficulty breathing return to the emergency department for reevaluation. HPI General Mode of arrival: ambulatory. Date/Time Provider Initiated Documentation: 02/18/24 18:53. Limitations to Documentation: no limitations. Information obtained by: patient. History of Present Illness 48 year old F presents to the emergency department with the chief complaint of Tingling in chest and back radiating to the abdomen, described as moderate, Patient started experiencing this hour(s) (5) and it has been constant. No relieving factors improve symptom(s), No exacerbating factors reported . Patient notes headaches. Related Data Home Medications ?Medication ?Instructions ?Recorded ?Confirmed prnehqa-rdiiyhuvgklxp-[id number] 250 2 tab PO BID PRN 07/22/12 02/18/24 mg-250 mg-65 mg tablet (Excedrin Migraine) ergocalciferol (vitamin D2) 1,250 1 cap PO .QWEEK #6 caps 07/22/12 02/18/24 mcg (50,000 unit) capsule ergocalciferol (vitamin D2) 10 mcg 1 tab PO PM 07/22/12 02/18/24 (400 unit) tablet folic acid-vit B6-vit B12 2.5 1 tab-cap PO DAILY 06/11/13 02/18/24 mg-25 mg-2 mg tablet (Folbic) fexofenadine-pseudoephedrine ER 1 tab-cap PO DAILY PRN 08/05/17 02/18/24 180 mg-240 mg tablet,ext.release 24 hr (Tracey-D 24 Hour) magnesium 250 mg tablet 400 mg PO DAILY 01/16/18 02/18/24 Magic Mouthwash See Rx Instructions SS QID #240 mL 10/31/21 02/18/24 hydroxychloroquine 200 mg tablet 400 mg PO HS 04/16/22 02/18/24 (Plaquenil) ibuprofen 600 mg tablet 600 mg PO TID PRN pain #60 tabs 04/17/22 02/18/24 cyanocobalamin (vitamin B-12) 1,000 mcg IM QMONTH #10 mL 05/28/22 02/18/24 1,000 mcg/mL injection solution trazodone 100 mg tablet 300 mg (3 x 100 mg) PO QHS PRN 07/30/22 02/18/24 insomnia #270 tabs diltiazem HCl 240 mg 240 mg PO DAILY #90 caps 09/16/22 02/18/24 capsule,extended release 24 hr albuterol sulfate 90 mcg/actuation 2 inh inhalation Q6H PRN shortness 05/07/23 02/18/24 breath activated powder inhaler of breath or wheezing #1 ea losartan 100 mg tablet 100 mg PO DAILY #90 tabs 05/07/23 02/18/24 hydrocodone 5 mg-acetaminophen 325 1 tab PO Q6H PRN severe pain #12 05/13/23 02/18/24 mg tablet tabs escitalopram oxalate 10 mg tablet 30 mg (3 x 10 mg) PO DAILY #180 07/09/23 02/18/24 tabs venlafaxine 150 mg 150 mg PO QPM #90 caps 08/18/23 02/18/24 capsule,extended release 24 hr naloxone 4 mg/actuation nasal 4 mg intranasal Q3M PRN opioid 09/24/23 02/18/24 spray (Narcan) overdose #2 ea esomeprazole magnesium 40 mg 40 mg PO HS #90 caps 11/10/23 02/18/24 capsule,delayed release (Nexium) metoprolol tartrate 25 mg tablet 37.5 mg (1.5 x 25 mg) PO BID #180 12/17/23 02/18/24 tabs spironolactone 50 mg tablet 50 mg PO DAILY #90 tabs 12/18/23 02/18/24 ondansetron 8 mg disintegrating 8 mg PO BID PRN nausea and 12/23/23 02/18/24 tablet vomiting #60 tabs hydrocodone 5 mg-acetaminophen 325 1 tab PO Q6H PRN severe pain #10 12/27/23 02/18/24 mg tablet tabs semaglutide (weight loss) 2.4 2.4 mg (0.75 mL) subcut QWEEK #3 mL 01/28/24 02/18/24 mg/0.75 mL subcutaneous pen injector dextroamphetamine-amphetamine 30 30 mg PO BID PRN add #56 tab-caps 02/03/24 02/18/24 mg tablet (Adderall) lorazepam 1 mg tablet 1 mg PO BID PRN anxiety #20 tabs 02/15/24 02/18/24 cephalexin 500 mg tablet 500 mg PO QID #28 tabs 02/18/24 Previous Rx's ?Medication ?Instructions ?Recorded Magic Mouthwash See Rx Instructions SS QID #240 mL 10/31/21 ibuprofen 600 mg tablet 600 mg PO TID PRN pain #60 tabs 04/17/22 cyanocobalamin (vitamin B-12) 1,000 mcg IM QMONTH #10 mL 05/28/22 1,000 mcg/mL injection solution trazodone 100 mg tablet 300 mg (3 x 100 mg) PO QHS PRN 07/30/22 insomnia #270 tabs diltiazem HCl 240 mg 240 mg PO DAILY #90 caps 09/16/22 capsule,extended release 24 hr albuterol sulfate 90 mcg/actuation 2 inh inhalation Q6H PRN shortness 05/07/23 breath activated powder inhaler of breath or wheezing #1 ea losartan 100 mg tablet 100 mg PO DAILY #90 tabs 05/07/23 hydrocodone 5 mg-acetaminophen 325 1 tab PO Q6H PRN severe pain #12 05/13/23 mg tablet tabs escitalopram oxalate 10 mg tablet 30 mg (3 x 10 mg) PO DAILY #180 07/09/23 tabs venlafaxine 150 mg 150 mg PO QPM #90 caps 08/18/23 capsule,extended release 24 hr naloxone 4 mg/actuation nasal 4 mg intranasal Q3M PRN opioid 09/24/23 spray (Narcan) overdose #2 ea esomeprazole magnesium 40 mg 40 mg PO HS #90 caps 11/10/23 capsule,delayed release (Nexium) metoprolol tartrate 25 mg tablet 37.5 mg (1.5 x 25 mg) PO BID #180 12/17/23 tabs spironolactone 50 mg tablet 50 mg PO DAILY #90 tabs 12/18/23 ondansetron 8 mg disintegrating 8 mg PO BID PRN nausea and 12/23/23 tablet vomiting #60 tabs hydrocodone 5 mg-acetaminophen 325 1 tab PO Q6H PRN severe pain #10 12/27/23 mg tablet tabs semaglutide (weight loss) 2.4 2.4 mg (0.75 mL) subcut QWEEK #3 mL 01/28/24 mg/0.75 mL subcutaneous pen injector dextroamphetamine-amphetamine 30 30 mg PO BID PRN add #56 tab-caps 02/03/24 mg tablet (Adderall) lorazepam 1 mg tablet 1 mg PO BID PRN anxiety #20 tabs 02/15/24 cephalexin 500 mg tablet 500 mg PO QID #28 tabs 02/18/24 Allergies Allergy/AdvReac Type Severity Reaction Status Date / Time pregabalin Allergy Intermediate Dry/Sore Verified 02/18/24 19:11 mouth Sulfa (Sulfonamide AdvReac Intermediate LUPUS Verified 02/18/24 19:11 Antibiotics) tetracycline AdvReac Mild vomiting Verified 02/18/24 19:11 codeine AdvReac Unknown VOMITING Verified 02/18/24 19:11 Opioids - Morphine Analogues AdvReac Unknown TACHYCARDIA Verified 02/18/24 19:11 propofol AdvReac Other (See Verified 02/18/24 19:11 Comment) General Stated Complaint: GenMedical TREVA: 3 Review of Systems All systems reviewed & are unremarkable except as noted in HPI and below Constitutional Constitutional: Denies chills, Denies fever(s), Reports headache(s) and Denies weakness Eyes Eyes: Denies loss of vision ENT Ears, Nose, Mouth, and Throat: Reports headache(s) Cardiovascular Cardiovascular: Denies chest pain and Denies dyspnea Respiratory Respiratory: Denies cough and Denies dyspnea Gastrointestinal Gastrointestinal: Reports nausea Neurologic Neurologic: Reports headache(s), Denies loss of vision and Denies weakness Exam Const General: no acute distress Orientation: alert HENRI Head: normal to inspection Ears: external ears normal General nose exam: external nose normal Mouth: moist mucous membranes Eyes General: appearance normal, both eyes and all related structures Neck Neck: normal visual inspection Resp Effort & Inspection: normal respiratory effort and able to speak in complete sentences Auscultation: clear to auscultation bilaterally Cardio Rate: regular rate GI Palpation: soft, not firm and no guarding Back/Spine/Pelvis Back: no CVA tenderness Skin General skin exam: no rashes or lesions noted Neuro General: patient alert and patient oriented x3 Cranial Nerves: CN's II-XI intact bilaterally Cognition: normal cognition Speech: speech normal Gait: normal gait Motor: muscle tone normal throughout Sensory Exam: no sensory deficits noted Extrem General: normal to inspection Psych Mental Status: mental status grossly normal Course Vital Signs Vital signs: Vital Signs Temperature 36.8 C 02/18/24 19:06 Pulse 120 H 02/18/24 19:06 Respiratory Rate 20 02/18/24 19:06 Blood Pressure 122/90 02/18/24 19:06 Pulse Oximetry 98 02/18/24 19:06 Temperature 36.8 C 02/18/24 19:10 Pulse 120 H 02/18/24 19:10 Respiratory Rate 20 02/18/24 19:10 Respiratory Effort Normal 02/18/24 19:10 Blood Pressure 122/90 02/18/24 19:10 Blood Pressure Position Sitting 02/18/24 19:10 Pulse Oximetry 98 02/18/24 19:10 Oxygen Delivery Method Room Air 02/18/24 19:10 Oxygen Flow Rate 0 02/18/24 19:10 Medical Decision Making 48-year-old female who states she has undergone a lot of recent new medical diagnosis including uncontrolled hypertension despite multiple antihypertensives, POTS, who comes in with complaints of sudden onset of a tingling sensation in her bilateral chest that radiates into her back and abdomen. She also notes of a migraine headache and had 1 episode of vomiting. She says she has a history of migraines and thinks this is similar. The symptoms started 4 to 5 hours ago. She is ambulatory on arrival, she has no focal neurological deficits, cranial nerves II through XII are intact. She is oriented x 4, NIH is 0 on arrival. She is clear lung sounds, equal peripheral pulses. She does appear mildly anxious. I suspect her symptoms could be related to anxiety and her headache is related to migraines but given the pain and also unclear tingling sensation he has in her chest and radiating to her back and abdomen we will proceed with CT head to evaluate for hemorrhage, CBC, CMP, troponins and also obtain a CTA of the thorax and abdomen to evaluate for possible dissection. She has no meningismus and no fever so doubt infectious etiology such as meningitis. Labs show mildly low K, otherwise unremarkable. Will obtain second troponin. Imaging on my read showed no acute findings awaiting V rad read. Her urine is positive for nitrates, she denies any urinary symptoms but given she is positive for nitrates will initiate treatment with cephalexin. She has no CVA tenderness no fever so doubt pyelo and sepsis. Patient requesting discharge home. Second troponin negative and her CT showed no acute findings. Given reassuring workup feel is reasonable for her to follow-up with her primary care provider if her symptoms continue, she has no deficits on neurological exam so doubt acute spinal cord or central nervous system pathology. Return precautions given Differential Diagnosis Differential Diagnosis: Migraine, NSTEMI, dissection Medical Records Medical records reviewed: Yes I reviewed the patient's medical records. Lab Data Lab results reviewed: Yes I reviewed the patient's lab results. ECG Data Attestation: I personally reviewed and interpreted this ECG (s) as follows: Prior ECG tracings: available for review Interpretation: Sinus tachycardia, rate of 110, WA 144, no STEMI Quality:SDOH Health Related Social Needs: No Data to Display PFS All Active Problems (Updated 02/18/24 @ 20:31 by Chuckie Valencia MD) Chest pain (Acute) Tingling (Acute) Acute hypokalemia (Acute) Nausea (Acute) Back pain (Acute) Neck pain (Acute) Uncontrolled hypertension (Acute) Elevated blood pressure reading without diagnosis of hypertension (Acute) Menopausal and female climacteric states (Acute) LMP. 2021. Pancreatic lesion (Acute) Obesity (Chronic) Serrated polyp of colon (Acute) Right-sided chest pain (Acute) Chondromalacia of left knee (Acute) Partial tear of right Achilles tendon (Acute) Achilles tendinosis of right ankle (Acute) Achilles tendinitis (Acute) Anxiety (Chronic) Yeast vaginitis (Acute) Abdominal pain (Acute) Pyelonephritis (Acute) UTI (urinary tract infection) (Acute) Pancreatic mass (Acute) Achilles tendon disorder (Acute) Flushing (Acute) Pyelonephritis of right kidney (Acute) Occipital neuralgia (Acute) Neck pain, musculoskeletal (Acute) Exertional shortness of breath (Acute) Tachycardia (Acute) Hyperlipidemia (Chronic) Chronic fatigue syndrome (Acute) due to Lupus Recurrent UTI (Acute) Medial epicondylitis, left elbow (Acute) Steroid injection: 01/31/2020 Fibromyalgia (Chronic) Mild intermittent asthma (Acute) Vitamin D deficiency (Acute) Vitamin B 12 deficiency (Chronic) Major depressive disorder (Chronic) GERD with esophagitis (Acute) Endometriosis (Chronic) Systemic lupus erythematosus (Chronic) Followed by Dr. Main with [facility] [place] Rheumatology Medical History HTN (hypertension) is monitoring BP with PCP and has increased BP med (Losartan) Serrated adenoma of colon In 2010 Pyloric ulcer In 2019 Surgical History History of colonoscopy (~07/2023) S/P medial meniscus repair of right knee Hx of esophagogastroduodenoscopy (12/07/18) S/P colonoscopy (01/16/18) S/P cholecystectomy (12/11/11) History of arthroscopic knee surgery Family History (Updated 10/01/23 @ 16:11 by Angelina Sosa) FAMILY HX Heart disease Mother Endometriosis hyst at 26 Heart disease Depression Hyperlipidemia Hypertension Sister Endometriosis diagnosed by FH and sxs Depression Grandmother SLE (systemic lupus erythematosus) unknown age, but had renal dz Father Heart disease Hyperlipidemia Hypertension Stroke Brother Hyperlipidemia Daughter Asthma Depression Son Asthma Depression Maternal Grandmother Cancer Hypertension Maternal Grandfather Cancer Dementia Stroke Hypertension Hyperlipidemia Paternal Grandmother No problems noted. Paternal Grandfather No problems noted. Social History (Updated 10/03/23 @ 09:53 by Angelina Sosa) Smoking/Tobacco Use Status: Never Second Hand Exposure: Yes Smoking risk assessment performed?: Yes Alcohol Intake: current Alcohol Intake frequency: a few times a month Alcohol type: beer and hard liquor Drug use: Never Substance use type: does not use Counseling given: No Household members: significant other Housing: apartment Number of Children: 2 Communication Needs: None current occupation: Nurse Pets and animals: Yes Pets and animals: cat(s) and dog(s) Sexually active: No Do you think of yourself as: straight/heterosexual Current gender identity: female What is your relationship status?: living with partner How often do you talk on the phone with friends or family?: three or more times per week How often do you get together with friends or relatives?: three or more times per week How often do you attend scientologist or temple services?: decline to answer Do you belong to any clubs or organized social groups?: no Panel score (0-1 are the most socially isolated patients): 2 What type of physical activity do you participate in: walking Duration: 15-30 minutes/day Frequency: 3-4 times per week Kayleigh/Oriental Orthodox: L[employer] Special kayleigh needs: No Seatbelt use: always Helmet use: Yes Helmet use: always Drive intox or ride w/intox motor bus driver: No Firearms in home: No Do you feel safe at home: Yes Do you feel safe in your relationship?: Yes Victim of physical abuse: No Victim of emotional abuse: No Victim of sexual abuse: No Would you like helpful sources: No Female Reproductive History Menstrual control method: none Menopause type: natural (2020. amenorrhea till 08/2023-spotting)
[2024-02-18 19:27] VITALS: RESP 18
[2024-02-18] MEDS: Omnipaque 350 MG/ML 100 ML BTL IJ (19:46)
[2024-02-18] MEDS: Normal Saline - Diluent 50 ML VIAL IJ (19:46)
[2024-02-18 19:52] LABS: Abs Immature Grans 0.02 10^3/uL (0.0-0.06); Absolute Basophil Count 0.04 10^3/uL (0.0-0.2); Absolute Eosinophil Count 0.03 10^3/uL (0.0-0.7); Absolute Lymphocyte Count 1.41 10^3/uL (1.2-3.4); Absolute Monocyte Count 0.45 10^3/uL (0.1-0.8); Absolute Neutrophil Count 4.73 10^3/uL (1.2-6.7); Basophils % 0.6 %; Eosinophils % 0.4 %; HCT 42.9 % (36.0-46.0); Immature Grans % 0.3 %; Lymphocytes % 21.1 %; MCH 30.2 pg (27.0-33.0); MCHC 32.6 % (32.0-36.0); MCV 93 fL (80-95); MPV 9.9 fL (8.0-11.0); Monocytes % 6.7 %; Neutrophils % 70.9 %; Platelet Count 358 10^3/uL (130-400); RBC 4.64 10^6/uL (3.93-5.22); RDW 12.7 % (11.7-14.6); WBC 6.68 10^3/uL (4.4-10.8)
[2024-02-18] MEDS: diphenhydrAMINE 50 MG/ML VIAL 12.5 MG IVP (19:53)
[2024-02-18] MEDS: Dexamethasone 10 MG/ML VIAL IVP (19:54)
[2024-02-18] MEDS: Prochlorperazine 10 MG/2 ML VIAL IVP (19:54)
[2024-02-18 20:01] VITALS: O2SAT 99
[2024-02-18 20:02] LABS: Bilirubin Negative (Negative); Blood Large (Negative); Clarity Sl Cloudy (Clear); Glucose Negative (Negative); Ketones Negative (Negative); Leukocyte Esterase Negative (Negative); Nitrite Positive (Negative); Specific Gravity <= 1.005 (1.005-1.025); Urobilinogen 0.2 mg/dL (Up to 0.2)
[2024-02-18 20:03] LABS: ALT 20 U/L (14-59); AST 16 U/L (15-37); Albumin 3.7 g/dL (3.4-5.0); Alkaline Phosphatase 109 U/L (46-116); Anion Gap 9.6 mmol/L (3-11); BUN 9 mg/dL (7-18); Bilirubin, Direct 0.1 mg/dL (0.0-0.2); Bilirubin, Total 0.35 mg/dL (0.2-1.0); CO2 30.4 mmol/L (21.0-32.0); CREATININE 1.1 mg/dL (0.55-1.02); Chloride 101 mmol/L (98-107); Estimated GFR 61.98 (mL/min/1.73m2); Glucose 108 mg/dL (74-106); Lipase 38 U/L (16-77); Magnesium 1.8 mg/dL (1.8-2.4); Potassium 3.1 mmol/L (3.5-5.1); Sodium 141 mmol/L (136-145); Total Protein 8.1 g/dL (6.4-8.2); Troponin I 6 ng/L (<or=51)
[2024-02-18] MEDS: Ketorolac 15 MG/ML VIAL IVP (20:11)
[2024-02-18] MEDS: Normal Saline Flush 10 ML SYR IVP (20:13)
[2024-02-18 20:15] LABS: Bacteria Moderate HPF (Negative); C & S Indicated? No; Epithelial Cells Few HPF (Negative); RBC 20-50 HPF (0-2)
[2024-02-18] MEDS: Potassium Chloride 20 MEQ TABCR 40 MEQ PO (20:34)
[2024-02-18] MEDS: Cephalexin 500 MG CAP PO (20:34)
[2024-02-18 20:36] VITALS: O2SAT 94
[2024-02-18 20:37] VITALS: BP 132/97; PULSE 89
--- NOTE | 2024-02-18 20:43 | DI.VRAD_ITS ---
PROCEDURE INFORMATION: Exam: CT Head Without Contrast Exam date and time: 02/18/2024 7:34 PM Age: 48 years old Clinical indication: Pain; Headache TECHNIQUE: Imaging protocol: Computed tomography of the head without contrast. COMPARISON: OT XR [facility] CERVICAL SP 2V 08/03/2020 11:24 AM FINDINGS: Brain: Normal. No hemorrhage. Unremarkable white matter. No mass effect. Cerebral ventricles: No ventriculomegaly. Paranasal sinuses: Visualized sinuses are unremarkable. No fluid levels. Mastoid air cells: Visualized mastoid air cells are well aerated. Bones: Unremarkable. No acute fracture. Soft tissues: Unremarkable. IMPRESSION: No acute intracranial abnormality. Dictated and Authenticated by: Harpreet Tran MD. Ordering:MICHEL Noguera MD
--- NOTE | 2024-02-18 20:52 | DI.VRAD_ITS ---
PROCEDURE INFORMATION: Exam: CTA Chest With Contrast CTA Abdomen and Pelvis With Contrast Exam date and time: 02/18/2024 7:35 PM Age: 48 years old Clinical indication: Other: Chest pain radiating to the back and abdomen TECHNIQUE: Imaging protocol: Computed tomographic angiography of the chest with contrast. Exam focused on the arteries. Computed tomographic angiography of the abdomen and pelvis with contrast. Exam focused on the arteries. 3D rendering (Not supervised by radiologist): MIP and/or 3D reconstructed images were created by the technologist. Contrast material: OMNI 350; Contrast volume: 100 ml; Contrast route: INTRAVENOUS (IV); COMPARISON: CT CHEST PE CTA 07/23/2021 8:48 PM FINDINGS: VASCULATURE: Pulmonary arteries: Normal. No pulmonary emboli. Aorta: No aortic aneurysm. No aortic dissection. Celiac trunk and mesenteric arteries: No occlusion or significant stenosis. Renal arteries: No occlusion or significant stenosis. Right iliac arteries: No occlusion or significant stenosis. Left iliac arteries: No occlusion or significant stenosis. CHEST: Lungs: Unremarkable. No consolidation. No masses. Pleural spaces: Unremarkable. No pneumothorax. No pleural effusion. Heart: Unremarkable. No cardiomegaly. No pericardial effusion. ABDOMEN AND PELVIS: Liver: No mass. Gallbladder and biliary ducts: Unremarkable. No calcified stones. No ductal dilation. Pancreas: Unremarkable. No mass. No ductal dilation. Spleen: Unremarkable. No splenomegaly. Adrenal glands: Unremarkable. No mass. Kidneys and ureters: Unremarkable. No solid mass. No hydronephrosis. Stomach and bowel: Unremarkable. No obstruction. No mucosal thickening. Appendix: No evidence of appendicitis. Intraperitoneal space: Unremarkable. No free air. No significant fluid collection. Urinary bladder: Unremarkable. No mass. Reproductive: Unremarkable as visualized. Lymph nodes: Unremarkable. No enlarged lymph nodes. Bones/joints: Mild dextroscoliosis of the lumbar spine. Moderate degenerative disc changes in the upper lumbar spine. Mild multilevel degenerative disc changes in the lower thoracic spine. No vertebral body compression. No acute fracture. Soft tissues: Unremarkable. IMPRESSION: Normal appearance of the aorta and its branches. No acute abnormality evident. [id number] degenerative changes of the spine as described. Dictated and Authenticated by: Anastacio Krishnan MD. Ordering:MICHEL Noguera MD
[2024-02-18 20:55] LABS: Troponin I 4 ng/L (<or=51)
--- NOTE | 2024-02-21 08:21 | NUR.NOTE ---
Accessed patient chart to see if antibiotic was given for urine culture. Nursing Note:
== END 2024-02-18 21:03 | disposition home or self-care (01) ==
PROVIDERS: Emergency Provider Emergency Medicine; PCP Family Medicine
DX: R20.2 Paresthesia of skin (principal); E87.6 Hypokalemia; R07.9 Chest pain, unspecified; Z79.899 Other long term (current) drug therapy; N39.0 Urinary tract infection, site not specified; I10 Essential (primary) hypertension; G90.A Postural orthostatic tachycardia syndrome [POTS]; R51.9 Headache, unspecified; F41.9 Anxiety disorder, unspecified; E78.5 Hyperlipidemia, unspecified; Z79.82 Long term (current) use of aspirin; K21.9 Gastro-esophageal reflux disease without esophagitis
CPT/HCPCS: 36415; 71275; 80053; 83690; 87077; 93005; 96374; 96375; 99285; 70450; 74174; 81003; 81015; 82248; 83735; 84484; 85025; 87086; 87186; 93010; J0780; J1100; J1200; J1885; J3490

== ENCOUNTER 2024-03-05 15:23 | Outpatient (REF) | payer OTHER, SELFPAY | END 2024-03-05 15:24 | disposition home or self-care (01) | LOC: LBN 15:23 | PROVIDERS: PCP Family Medicine; Visit Provider Nurse Practitioner Family | DX: N39.0 Urinary tract infection, site not specified (principal) | CPT/HCPCS: 87077; 87086; 87186 ==

== ENCOUNTER 2024-03-11 02:58 | Outpatient (CLI) | payer OTHER, SELFPAY ==
--- NOTE | 2024-03-11 | DI.MAMMO_ITS ---
Exam(s) MAMMO SCREENING EXAM: MAMMO SCREENING CLINICAL HISTORY: screening,Z12.39. TECHNIQUE: Bilateral full field digital CC and MLO mammographic images were obtained with 3D tomosyn thesis and utilizing computer aided detection (CAD). COMPARISON: Prior mammograms were reviewed. FINDINGS: There has been no significant change in the appearance and distribution of the fibroglandular tissue which is again noted be mostly fatty. A small benign-appearing group of 4 punctate microcalcifications in the medial aspect the left breast is unchanged from prior mammograms. There are no new spiculated masses nor malignant appearing microcalcification groups. There is no significant architectural distortion nor skin thickening-retraction. IMPRESSION: No radiographic evidence of malignancy. BI-RADS Category 1 - Negative Breast Density - Category A - Almost entirely fatty Breast density Category C or D implies that the patient has dense breast tissue. Dense breast tissue can make it harder to find cancer on a mammogram. Dense breast tissue is also associated with an incr eased risk of breast cancer. This information about the result of the mammogram report was provided to the patient to raise their awareness. Use this report when you speak with the patient about their risks for breast cancer, which includes their family history. At that time, you may recommend additional screening tests (Ultrasoun d or MRI) as these tests may add significant information. A negative radiographic report should not delay biopsy if a dominant or clinically suspicious mass is present. Up to ten percent of cancers are not identified on mammography. A negative report may reinforce clinical impression. Adenosis and dense breasts may obscure an underlying neoplasm. False positive reports average 6 to 10%. Patient will receive a letter notifying them of these results.
== END 2024-03-11 03:18 ==
LOC: DI 02:59
PROVIDERS: PCP Family Medicine; Visit Provider Obstetrics & Gynecology Gynecology
DX: Z12.31 Encounter for screening mammogram for malignant neoplasm of breast (principal); R92.313 Mammographic fatty tissue density, bilateral breasts
CPT/HCPCS: 77063; 77067

== ENCOUNTER 2024-03-17 03:59 | Outpatient (RCR) | payer OTHER, SELFPAY ==
[2024-03-03] MEDS: IRON SUCROSE COMPLEX 300 MG in Normal Saline 250 ML 176.667 MG IVPB (13:18)
[2024-03-03] MEDS: Normal Saline Flush 10 ML SYR IVP (13:20)
[2024-03-17] MEDS: IRON SUCROSE COMPLEX 300 MG in Normal Saline 250 ML 176.667 MG IVPB (13:20)
[2024-03-17] MEDS: Normal Saline Flush 10 ML SYR IVP (13:20)
== END 2024-03-30 23:59 | disposition home or self-care (01) ==
LOC: INF 03:59
PROVIDERS: PCP Family Medicine; Visit Provider Family Medicine
DX: D50.9 Iron deficiency anemia, unspecified (principal)
CPT/HCPCS: 96365; 96366; J1756

== ENCOUNTER 2024-03-22 16:35 | Outpatient (REF) | payer OTHER, SELFPAY ==
[2024-03-22 16:13] LABS: Bilirubin Negative (Negative); Blood Negative (Negative); Clarity Clear (Clear); Glucose Negative (Negative); Ketones Negative (Negative); Leukocyte Esterase Trace (Negative); Nitrite Positive (Negative); Specific Gravity >= 1.030 (1.005-1.025); Urobilinogen 0.2 mg/dL (Up to 0.2); pH 5.5 (5-8)
[2024-03-22 16:21] LABS: Bacteria Many HPF (Negative); Epithelial Cells Moderate HPF (Negative); RBC 0-2 HPF (0-2)
[2024-03-22 16:22] LABS: C & S Indicated? No; Crystals Negative HPF (Negative); Mucus Moderate (Negative)
== END 2024-03-22 16:36 | disposition home or self-care (01) ==
LOC: LBN 16:35
PROVIDERS: PCP Family Medicine; Visit Provider Family Medicine
DX: R30.0 Dysuria (principal)
CPT/HCPCS: 81003; 81015

== ENCOUNTER 2024-03-26 14:21 | Outpatient (REF) | payer OTHER, SELFPAY | END 2024-03-26 14:22 | disposition home or self-care (01) | LOC: LBN 14:21 | PROVIDERS: PCP Family Medicine; Visit Provider Family Medicine | DX: R30.0 Dysuria (principal); R82.89 Other abnormal findings on cytological and histological examination of urine | CPT/HCPCS: 87077; 87086; 87186 ==

== ENCOUNTER 2024-04-05 14:44 | Outpatient (REF) | payer OTHER, SELFPAY ==
[2024-04-05 14:08] LABS: Bilirubin Negative (Negative); Blood Negative (Negative); Clarity Clear (Clear); Glucose Negative (Negative); Ketones Negative (Negative); Leukocyte Esterase Negative (Negative); Nitrite Negative (Negative); Specific Gravity 1.025 (1.005-1.025); Urobilinogen 0.2 mg/dL (Up to 0.2); pH 5.5 (5-8)
[2024-04-05 14:22] LABS: Bacteria Few HPF (Negative); Casts 3-5 Hyaline LPF (Negative); Crystals Negative HPF (Negative); Epithelial Cells Many HPF (Negative); Mucus Trace (Negative); RBC 0-2 HPF (0-2); WBC 0-2 HPF (0-5)
[2024-04-05 14:23] LABS: C & S Indicated? C&S Done As Ordered
== END 2024-04-05 14:45 | disposition home or self-care (01) ==
LOC: LBN 14:44
PROVIDERS: PCP Family Medicine; Visit Provider Family Medicine
DX: N39.0 Urinary tract infection, site not specified (principal)
CPT/HCPCS: 87077; 81003; 81015; 87086; 87186

== ENCOUNTER 2024-04-23 16:56 | Outpatient (REF) | payer OTHER, SELFPAY | END 2024-04-23 16:57 | disposition home or self-care (01) | LOC: LBN 16:56 | PROVIDERS: PCP Family Medicine; Visit Provider Family Medicine | DX: R30.0 Dysuria (principal); N39.0 Urinary tract infection, site not specified; M32.19 Other organ or system involvement in systemic lupus erythematosus; F33.1 Major depressive disorder, recurrent, moderate; E66.9 Obesity, unspecified; G90.A Postural orthostatic tachycardia syndrome [POTS] | CPT/HCPCS: 87086 ==

== ENCOUNTER 2024-04-27 15:13 | Outpatient (REF) | payer OTHER, SELFPAY | END 2024-04-27 15:14 | disposition home or self-care (01) | LOC: LBN 15:13 | PROVIDERS: PCP Family Medicine; Visit Provider Family Medicine | DX: N39.0 Urinary tract infection, site not specified (principal); M32.19 Other organ or system involvement in systemic lupus erythematosus; E66.9 Obesity, unspecified; G90.A Postural orthostatic tachycardia syndrome [POTS] | CPT/HCPCS: 87086 ==

== ENCOUNTER 2024-06-16 15:33 | Outpatient (CLI) | payer OTHER, SELFPAY ==
[2024-06-16 15:26] LABS: Abs Immature Grans 0.02 10^3/uL (0.0-0.06); Absolute Basophil Count 0.06 10^3/uL (0.0-0.2); Absolute Lymphocyte Count 2.51 10^3/uL (1.2-3.4); Absolute Neutrophil Count 3.71 10^3/uL (1.2-6.7); Basophils % 0.9 %; Eosinophils % 1.4 %; HCT 41.7 % (36.0-46.0); HGB 13.8 g/dL (11.2-15.7); Immature Grans % 0.3 %; Lymphocytes % 35.9 %; MCH 31.3 pg (27.0-33.0); MCHC 33.1 % (32.0-36.0); MCV 95 fL (80-95); Monocytes % 8.6 %; Neutrophils % 52.9 %; Platelet Count 355 10^3/uL (130-400); RBC 4.41 10^6/uL (3.93-5.22); RDW 12.3 % (11.7-14.6); RDW-SD 42.9 fL
[2024-06-16 15:31] LABS: Bilirubin Negative (Negative); Blood Negative (Negative); Clarity Clear (Clear); Glucose Negative (Negative); Ketones Trace mg/dL (Negative); Leukocyte Esterase Negative (Negative); Nitrite Positive (Negative); Specific Gravity 1.025 (1.005-1.025); Urobilinogen 0.2 mg/dL (Up to 0.2)
[2024-06-16 16:11] LABS: Bacteria Many HPF (Negative); C & S Indicated? Yes; Casts Negative LPF (Negative); Crystals Negative HPF (Negative); Epithelial Cells Negative HPF (Negative); Mucus Negative (Negative); RBC Negative HPF (0-2)
[2024-06-16 16:20] LABS: Iron 89 ug/dL (50-170); Total Iron Binding Capacity 346 ug/dL (250-450); Transferrin Sat 26 % (15-50)
[2024-06-16 16:39] LABS: Ferritin 163 ng/mL (8-252); Vitamin B12 594 pg/mL (193-986)
== END 2024-06-16 15:34 | disposition home or self-care (01) ==
LOC: LBO 15:42
PROVIDERS: PCP Family Medicine; Visit Provider Internal Medicine Rheumatology
DX: N39.0 Urinary tract infection, site not specified (principal)
CPT/HCPCS: 36415; 87077; 81003; 81015; 82607; 82728; 83540; 83550; 85025; 87086; 87186

== ENCOUNTER 2024-07-27 16:19 | Outpatient (REF) | payer OTHER, SELFPAY ==
[2024-07-27 16:09] LABS: Anion Gap 11.2 mmol/L (3-11); BUN 11 mg/dL (7-18); CO2 27.8 mmol/L (21.0-32.0); CREATININE 1.3 mg/dL (0.55-1.02); Calcium 9.8 mg/dL (8.5-10.1); Chloride 106 mmol/L (98-107); Estimated GFR 50.41 (mL/min/1.73m2); Glucose 92 mg/dL (74-106); Potassium 4.2 mmol/L (3.5-5.1); Sodium 145 mmol/L (136-145)
[2024-07-27 16:43] LABS: Bilirubin Negative (Negative); Blood Negative (Negative); Clarity Clear (Clear); Glucose Negative (Negative); Ketones Negative (Negative); Leukocyte Esterase Negative (Negative); Nitrite Negative (Negative); Urobilinogen 0.2 mg/dL (Up to 0.2); pH 5.5 (5-8)
[2024-07-27 19:51] LABS: Lab Add On Test DONE
== END 2024-07-27 16:20 | disposition home or self-care (01) ==
LOC: LBN 16:19
PROVIDERS: PCP Family Medicine; Visit Provider Nurse Practitioner Family
DX: N39.0 Urinary tract infection, site not specified (principal); R10.2 Pelvic and perineal pain
CPT/HCPCS: 80048; 81003; 87086

== ENCOUNTER 2024-08-12 15:38 | Outpatient (REF) | payer OTHER, SELFPAY ==
[2024-08-12 16:20] LABS: Bilirubin Small (Negative); Blood Negative (Negative); Clarity Sl Cloudy (Clear); Glucose Negative (Negative); Ketones Trace mg/dL (Negative); Leukocyte Esterase Negative (Negative); Nitrite Positive (Negative); Specific Gravity >= 1.030 (1.005-1.025); Urobilinogen 0.2 mg/dL (Up to 0.2); pH 5.5 (5-8)
[2024-08-12 16:39] LABS: Bacteria Many HPF (Negative); C & S Indicated? No; Casts 0-2 Hyaline LPF (Negative); Crystals Negative HPF (Negative); Epithelial Cells Rare HPF (Negative); Mucus Trace (Negative); RBC 0-2 HPF (0-2)
== END 2024-08-12 15:39 | disposition home or self-care (01) ==
LOC: LBN 15:38
PROVIDERS: PCP Family Medicine; Visit Provider Family Medicine
DX: R39.15 Urgency of urination (principal)
CPT/HCPCS: 81003; 81015

== ENCOUNTER 2024-09-08 14:05 | Outpatient (REF) | payer OTHER, SELFPAY | END 2024-09-08 14:06 | disposition home or self-care (01) | LOC: LBN 14:05 | PROVIDERS: PCP Family Medicine; Visit Provider Nurse Practitioner Gerontology | DX: N39.0 Urinary tract infection, site not specified (principal); R82.89 Other abnormal findings on cytological and histological examination of urine | CPT/HCPCS: 87086 ==

== ENCOUNTER 2024-09-21 16:34 | Outpatient (REF) | payer OTHER, SELFPAY ==
[2024-09-21 15:46] LABS: Bilirubin Negative (Negative); Blood Negative (Negative); Clarity Clear (Clear); Glucose Negative (Negative); Ketones Negative (Negative); Leukocyte Esterase Small (Negative); Nitrite Negative (Negative); Urobilinogen 0.2 mg/dL (Up to 0.2); pH 6.5 (5-8)
[2024-09-21 15:52] LABS: Bacteria Few HPF (Negative); C & S Indicated? C&S Done As Ordered; Casts Negative LPF (Negative); Crystals Negative HPF (Negative); Epithelial Cells Few HPF (Negative); Mucus Negative (Negative); RBC Negative HPF (0-2)
== END 2024-09-21 16:35 | disposition home or self-care (01) ==
LOC: LBN 16:34
PROVIDERS: PCP Family Medicine; Visit Provider Nurse Practitioner Gerontology
DX: N39.0 Urinary tract infection, site not specified (principal)
CPT/HCPCS: 87077; 81003; 81015; 87086; 87186

== ENCOUNTER 2024-10-07 16:30 | Outpatient (REF) | payer OTHER, SELFPAY ==
[2024-10-07 18:58] LABS: Glucose Negative (Negative)
== END 2024-10-07 16:31 | disposition home or self-care (01) ==
LOC: LBN 16:30
PROVIDERS: PCP Family Medicine; Visit Provider Urology
DX: N39.0 Urinary tract infection, site not specified (principal); B96.1 Klebsiella pneumoniae [K. pneumoniae] as the cause of diseases classified elsewhere
CPT/HCPCS: 87077; 81003; 87086; 87186

== ENCOUNTER 2024-11-17 16:56 | Outpatient (CLI) | payer OTHER, SELFPAY ==
[2024-11-17 15:47] LABS: Abs Immature Grans 0.02 10^3/uL (0.0-0.06); HCT 43.7 % (36.0-46.0); HGB 14.4 g/dL (11.2-15.7); Immature Grans % 0.3 %; MCH 31.0 pg (27.0-33.0); MCHC 33.0 % (32.0-36.0); MCV 94 fL (80-95); MPV 10.3 fL (8.0-11.0); Platelet Count 335 10^3/uL (130-400); RBC 4.65 10^6/uL (3.93-5.22); RDW 11.7 % (11.7-14.6); RDW-SD 40.2 fL; WBC 7.25 10^3/uL (4.4-10.8)
[2024-11-17 16:09] LABS: ALT 24 U/L (14-59); AST 20 U/L (15-37); Albumin 3.8 g/dL (3.4-5.0); Alkaline Phosphatase 89 U/L (46-116); Anion Gap 10.6 mmol/L (3-11); BUN 10 mg/dL (7-18); Bilirubin, Total 0.5 mg/dL (0.2-1.0); CO2 26.4 mmol/L (21.0-32.0); Calcium 9.1 mg/dL (8.5-10.1); Chloride 104 mmol/L (98-107); Estimated GFR 69.06 (mL/min/1.73m2); Glucose 100 mg/dL (74-106); Potassium 3.7 mmol/L (3.5-5.1); Sodium 141 mmol/L (136-145); Total Protein 7.6 g/dL (6.4-8.2)
[2024-11-18 12:42] LABS: Lab Add On Test DONE
[2024-11-18 12:45] LABS: ESR 18 mm/hr (0-20)
== END 2024-11-17 16:57 | disposition home or self-care (01) ==
LOC: LBO 16:56
PROVIDERS: PCP Family Medicine; Visit Provider Family Medicine
DX: R10.9 Unspecified abdominal pain (principal); D64.9 Anemia, unspecified; M54.9 Dorsalgia, unspecified
CPT/HCPCS: 36415; 80053; 85652; 85025

== ENCOUNTER 2024-12-07 17:53 | Outpatient (REF) | payer OTHER, SELFPAY ==
[2024-12-07 17:48] LABS: Glucose Negative (Negative)
== END 2024-12-07 17:54 | disposition home or self-care (01) ==
LOC: NCHCN 17:53
PROVIDERS: PCP Family Medicine; Visit Provider Nurse Practitioner Gerontology
DX: N39.0 Urinary tract infection, site not specified (principal)
CPT/HCPCS: 87077; 81003; 87086; 87186

== ENCOUNTER 2025-02-07 19:08 | Outpatient (REF) | payer OTHER, SELFPAY | END 2025-02-07 19:09 | disposition home or self-care (01) | LOC: LBN 19:08 | PROVIDERS: PCP Family Medicine; Visit Provider Obstetrics & Gynecology | DX: Z12.4 Encounter for screening for malignant neoplasm of cervix (principal) | CPT/HCPCS: 88142; 87624 ==

== ENCOUNTER 2025-02-23 11:59 | Emergency (ER) | payer OTHER, SELFPAY ==
[2025-02-23 12:23] VITALS: BP 127/84; PULSE 84; RESP 16; TEMP 36.4; O2SAT 99
--- NOTE | 2025-02-23 12:40 | W.ED.GENAD ---
Discharge Plan Disposition Patient Disposition: Home Condition: Stable Discharge Details Clinical Impression: Dog bite of left hand Primary Care Provider: Panfilo Walter ED Provider: Tessy Fraser Meds and New Rx's Prescriptions: New amoxicillin-pot clavulanate 875-125 mg tablet 1 tab PO BID 10 Days Qty: 20 0RF Rx Instructions: Take 1 tablet by mouth twice daily for the next 10 days No Action cyanocobalamin (vitamin B-12) 1,000 mcg/mL solution 1,000 mcg IM QMONTH Qty: 10 2RF naloxone [Narcan] 4 mg/actuation spray,non-aerosol 4 mg intranasal Q3M PRN (Reason: opioid overdose) Qty: 2 0RF Rx Instructions: spray 1 dose into ONE nostril; alternate nostrils w each dose until help arrives albuterol sulfate 90 mcg/actuation aerosol powdr breath activated 2 inh inhalation Q6H PRN (Reason: shortness of breath or wheezing) Qty: 1 1RF ondansetron 8 mg tablet,disintegrating 8 mg PO BID PRN (Reason: nausea and vomiting) Qty: 60 2RF trazodone 100 mg tablet 300 mg PO QHS PRN (Reason: insomnia) Qty: 270 3RF Rx Instructions: dose increase (pt started to take 300 mg and it is effective) zolpidem 10 mg tablet 10 mg PO QHS sumatriptan succinate [Imitrex] 50 mg tablet See Rx Instructions PO .COMPLEX Qty: 10 5RF Rx Instructions: take 1 tab at onset of headache; if no relief may repeat 1 tab after at least 2 hrs; max = 4 tabs/24 hr PO hydroxychloroquine [Plaquenil] 200 mg tablet 400 mg PO QHS Patient Comments: Lupus for 18 years. ergocalciferol (vitamin D2) 400 UNIT tablet 1 tab PO PM ergocalciferol (vitamin D2) 50,000 UNIT capsule 1 cap PO .QWEEK Qty: 6 [id number]-[id number] [Excedrin Migraine] 1 EACH tablet 2 tab PO BID PRN Folbic 1 EACH tablet 1 tab-cap PO DAILY fexofenadine-pseudoephedrine [Tracey-D 24 Hour] 1 EACH tablet extended release 24 hr 1 tab-cap PO DAILY PRN Magic Mouthwash solution See Rx Instructions SS QID Qty: 240 2RF Rx Instructions: 1:1:1 viscous lido/benadryl/maalox Swish and Swallow four times a day; venlafaxine 150 mg capsule,extended release 24hr 150 mg PO QPM Qty: 90 3RF losartan 100 mg tablet 100 mg PO DAILY Qty: 90 3RF estradiol 0.01 % (0.1 mg/gram) cream 1 g vaginal DIRECTED Qty: 60 3RF Rx Instructions: Apply a pea sized amount vaginally nightly for 2 weeks, then reduce to 2-3 times per week metoprolol tartrate 25 mg tablet 37.5 mg PO BID Qty: 180 2RF escitalopram oxalate 10 mg tablet 30 mg PO DAILY Qty: 180 3RF Rx Instructions: dose increase 03/05/22 esomeprazole magnesium [Nexium] 40 mg capsule,delayed release(DR/EC) 40 mg PO HS Qty: 90 3RF desvenlafaxine succinate 100 mg tablet extended release 24 hr 100 mg PO DAILY Qty: 90 1RF Rx Instructions: 11/18/2024: See task, increased by Dr. Walter. -hb fluconazole 200 mg tablet 200 mg PO ONCE PRN (Reason: yeast infection) Qty: 1 0RF Rx Instructions: yeast infection lorazepam 1 mg tablet 1 mg PO BID PRN (Reason: anxiety) Qty: 20 0RF tirzepatide (weight loss) 10 mg/0.5 mL pen injector 10 mg subcut QWEEK Qty: 2 0RF hydrocodone-acetaminophen 5-325 mg tablet 1 - 2 tab PO Q6H MDD 3 PRN (Reason: severe pain) Qty: 20 0RF Rx Instructions: back pain dextroamphetamine-amphetamine [Adderall] 30 mg tablet 30 mg PO BID MDD 2 PRN (Reason: add) Qty: 56 0RF Rx Instructions: Take 1 pill twice a day, administer doses at least 4-6 hours apart magnesium 250 mg Tablet 400 mg PO DAILY ibuprofen 600 mg tablet 600 mg PO TID PRN (Reason: pain) Qty: 60 0RF Discharge Instructions Instructions: Animal Bites ED Additional Instructions: At this time x-ray shows no fracture or dislocation. Please take the antibiotics twice daily with yogurt or a probiotic. Please be seen sooner for any red streaks, swelling drainage or signs of infection. Please wash under running soap and water daily. Allow to air dry at least 4 hours a day. Follow up with primary care provider in 3-5 days. Return to ED sooner if any worsening or concerns. Please take Tylenol or Ibuprofen with food every 4-6 hours as needed for pain and swelling. Stand Alone Forms: Portal Information Referrals: Panfilo Walter MD [Primary Care Provider, Medicine] - 5 days Referral Note: ER follow-up, call for an appointment HPI General Mode of arrival: ambulatory. Date/Time Provider Initiated Documentation: 02/23/25 12:11. Limitations to Documentation: no limitations. Information obtained by: patient, RN notes reviewed and old records reviewed. HPI Narrative: 49-year-old female presents to the ER with a chief complaint of left thumb laceration after being bit by a dog that was being put down at the vet. She was holding the dog and the dog was receiving injections and this the patient was bit. She does have a laceration noted to the medial aspect of her left nailbed and some surrounding contusion with an abrasion. She is up-to-date on her tetanus vaccination this was completed in September. She is having some tenderness at the joint just proximal to the bite so we will get imaging. Related Data Home Medications ?Medication ?Instructions ?Recorded ?Confirmed kxquofs-oxxsahrtwmeen-arkubdqi 250 2 tab PO BID PRN 07/22/12 02/07/25 mg-250 mg-65 mg tablet (Excedrin Migraine) ergocalciferol (vitamin D2) 1,250 1 cap PO .QWEEK #6 caps 07/22/12 02/07/25 mcg (50,000 unit) capsule ergocalciferol (vitamin D2) 10 mcg 1 tab PO PM 07/22/12 02/07/25 (400 unit) tablet folic acid-vit B6-vit B12 2.5 1 tab-cap PO DAILY 06/11/13 02/07/25 mg-25 mg-2 mg tablet (Folbic) fexofenadine-pseudoephedrine ER 1 tab-cap PO DAILY PRN 08/05/17 02/07/25 180 mg-240 mg tablet,ext.release 24 hr (Tracey-D 24 Hour) magnesium 250 mg tablet 400 mg PO DAILY 01/16/18 02/07/25 Magic Mouthwash See Rx Instructions SS QID #240 mL 10/31/21 02/07/25 ibuprofen 600 mg tablet 600 mg PO TID PRN pain #60 tabs 04/17/22 02/07/25 cyanocobalamin (vitamin B-12) 1,000 mcg IM QMONTH #10 mL 05/28/22 02/07/25 1,000 mcg/mL injection solution trazodone 100 mg tablet 300 mg (3 x 100 mg) PO QHS PRN 07/30/22 02/07/25 insomnia #270 tabs albuterol sulfate 90 mcg/actuation 2 inh inhalation Q6H PRN shortness 05/07/23 02/07/25 breath activated powder inhaler of breath or wheezing #1 ea venlafaxine 150 mg 150 mg PO QPM #90 caps 08/18/23 02/07/25 capsule,extended release 24 hr Held on 10/05/24. Instructions: Changed by Provider naloxone 4 mg/actuation nasal 4 mg intranasal Q3M PRN opioid 09/24/23 02/07/25 spray (Narcan) overdose #2 ea ondansetron 8 mg disintegrating 8 mg PO BID PRN nausea and 12/23/23 02/07/25 tablet vomiting #60 tabs losartan 100 mg tablet 100 mg PO DAILY #90 tabs 02/28/24 02/07/25 estradiol 0.01% (0.1 mg/gram) 1 g vaginal DIRECTED #60 grams 10/11/24 02/07/25 vaginal cream metoprolol tartrate 25 mg tablet 37.5 mg (1.5 x 25 mg) PO BID #180 11/02/24 02/07/25 tabs escitalopram oxalate 10 mg tablet 30 mg (3 x 10 mg) PO DAILY #180 11/04/24 02/07/25 tabs esomeprazole magnesium 40 mg 40 mg PO HS #90 caps 11/04/24 02/07/25 capsule,delayed release (Nexium) zolpidem 10 mg tablet 10 mg PO QHS 11/16/24 02/07/25 sumatriptan succinate 50 mg tablet See Rx Instructions PO .COMPLEX 11/17/24 02/07/25 (Imitrex) #10 tabs hydroxychloroquine 200 mg tablet 400 mg PO QHS 11/24/24 02/07/25 (Plaquenil) desvenlafaxine succinate 100 mg 100 mg PO DAILY #90 tabs 12/09/24 02/07/25 tablet,extended release 24 hr fluconazole 200 mg tablet 200 mg PO ONCE PRN yeast infection 12/21/24 02/07/25 #1 tab lorazepam 1 mg tablet 1 mg PO BID PRN anxiety #20 tabs 01/19/25 02/07/25 tirzepatide (weight loss) 10 10 mg (0.5 mL) subcut QWEEK #2 mL 01/26/25 02/07/25 mg/0.5 mL subcutaneous pen injector hydrocodone 5 mg-acetaminophen 325 1 - 2 tab PO Q6H PRN severe pain 02/04/25 02/07/25 mg tablet #20 tabs dextroamphetamine-amphetamine 30 30 mg PO BID PRN add #56 tab-caps 02/15/25 mg tablet (Adderall) amoxicillin 875 mg-potassium 1 tab PO BID Dog bite 10 days #20 02/23/25 clavulanate 125 mg tablet tabs Previous Rx's ?Medication ?Instructions ?Recorded Magic Mouthwash See Rx Instructions SS QID #240 mL 10/31/21 ibuprofen 600 mg tablet 600 mg PO TID PRN pain #60 tabs 04/17/22 cyanocobalamin (vitamin B-12) 1,000 mcg IM QMONTH #10 mL 05/28/22 1,000 mcg/mL injection solution trazodone 100 mg tablet 300 mg (3 x 100 mg) PO QHS PRN 07/30/22 insomnia #270 tabs albuterol sulfate 90 mcg/actuation 2 inh inhalation Q6H PRN shortness 05/07/23 breath activated powder inhaler of breath or wheezing #1 ea venlafaxine 150 mg 150 mg PO QPM #90 caps 08/18/23 capsule,extended release 24 hr Held on 10/05/24. Instructions: Changed by Provider naloxone 4 mg/actuation nasal 4 mg intranasal Q3M PRN opioid 09/24/23 spray (Narcan) overdose #2 ea ondansetron 8 mg disintegrating 8 mg PO BID PRN nausea and 12/23/23 tablet vomiting #60 tabs losartan 100 mg tablet 100 mg PO DAILY #90 tabs 02/28/24 estradiol 0.01% (0.1 mg/gram) 1 g vaginal DIRECTED #60 grams 10/11/24 vaginal cream metoprolol tartrate 25 mg tablet 37.5 mg (1.5 x 25 mg) PO BID #180 11/02/24 tabs escitalopram oxalate 10 mg tablet 30 mg (3 x 10 mg) PO DAILY #180 11/04/24 tabs esomeprazole magnesium 40 mg 40 mg PO HS #90 caps 11/04/24 capsule,delayed release (Nexium) sumatriptan succinate 50 mg tablet See Rx Instructions PO .COMPLEX 11/17/24 (Imitrex) #10 tabs desvenlafaxine succinate 100 mg 100 mg PO DAILY #90 tabs 12/09/24 tablet,extended release 24 hr fluconazole 200 mg tablet 200 mg PO ONCE PRN yeast infection 12/21/24 #1 tab lorazepam 1 mg tablet 1 mg PO BID PRN anxiety #20 tabs 01/19/25 tirzepatide (weight loss) 10 10 mg (0.5 mL) subcut QWEEK #2 mL 01/26/25 mg/0.5 mL subcutaneous pen injector hydrocodone 5 mg-acetaminophen 325 1 - 2 tab PO Q6H PRN severe pain 02/04/25 mg tablet #20 tabs dextroamphetamine-amphetamine 30 30 mg PO BID PRN add #56 tab-caps 02/15/25 mg tablet (Adderall) amoxicillin 875 mg-potassium 1 tab PO BID Dog bite 10 days #20 02/23/25 clavulanate 125 mg tablet tabs Allergies Allergy/AdvReac Type Severity Reaction Status Date / Time pregabalin Allergy Intermediate Dry/Sore Verified 02/07/25 15:37 mouth Sulfa (Sulfonamide AdvReac Intermediate LUPUS Verified 02/07/25 15:37 Antibiotics) tetracycline AdvReac Mild vomiting Verified 02/07/25 15:37 codeine AdvReac Unknown VOMITING Verified 02/07/25 15:37 Opioids - Morphine Analogues AdvReac Unknown TACHYCARDIA Verified 02/07/25 15:37 propofol AdvReac Other (See Verified 02/07/25 15:37 Comment) General Stated Complaint: Laceration TREVA: 4 Review of Systems Integumentary/Breasts Skin/Breast: Reports as per HPI and Reports wounds Exam Extrem Left upper extremity: hand Details: laceration thumb radial aspect distal Details: irregular and puncture, ecchymosis Location: of the thumb Location: at the proximal phalanx and on the dorsal aspect and puncture wound Hand/finger images:  1. Laceration 2. Abrasion 3. Contusion Course Vital Signs Vital signs: Vital Signs Temperature 36.4 C 02/23/25 12:23 Pulse 84 02/23/25 12:23 Respiratory Rate 16 02/23/25 12:23 Blood Pressure 127/84 02/23/25 12:23 Pulse Oximetry 99 02/23/25 12:23 Temperature 36.4 C 02/23/25 12:23 Pulse 84 02/23/25 12:23 Respiratory Rate 16 02/23/25 12:23 Blood Pressure 127/84 02/23/25 12:23 Pulse Oximetry 99 02/23/25 12:23 Oxygen Delivery Method Room Air 02/23/25 12:23 Oxygen Flow Rate 0 02/23/25 12:23 Pain Level 2 02/23/25 12:23 Medical Decision Making Imaging obtained to rule out fracture or foreign body, no evidence of fracture or foreign body. Patient given Augmentin here in department wound care and dressing. Instructed on follow up and home care. Discussed strict return instructions. This text was generated using [employer] dictation system, please disregard any oddities of phrase or misspellings. Quality:SDOH Health Related Social Needs: Health related social needs risk of homeless lonely/isolated PFSH All Active Problems (Updated 02/23/25 @ 13:51 by Tessy Fraser NP) Dog bite of left hand (Acute) Depression (Chronic) POTS (postural orthostatic tachycardia syndrome) (Acute) Chronic UTI (Acute) Papanicolaou smear of cervix with positive high risk human papilloma virus (HPV) test (Acute) 01/2024. Nl pap. + HPV. Neg 16/18 genotype Nausea (Acute) Back pain (Acute) Neck pain (Acute) Uncontrolled hypertension (Acute) Elevated blood pressure reading without diagnosis of hypertension (Acute) Menopausal and female climacteric states (Acute) LMP. 2021. Pancreatic lesion (Acute) Obesity (Chronic) Serrated polyp of colon (Acute) Right-sided chest pain (Acute) Chondromalacia of left knee (Acute) Partial tear of right Achilles tendon (Acute) Achilles tendinosis of right ankle (Acute) Achilles tendinitis (Acute) Anxiety (Chronic) Yeast vaginitis (Acute) Abdominal pain (Acute) Pyelonephritis (Acute) UTI (urinary tract infection) (Acute) Pancreatic mass (Acute) Achilles tendon disorder (Acute) Flushing (Acute) Pyelonephritis of right kidney (Acute) Occipital neuralgia (Acute) Neck pain, musculoskeletal (Acute) Exertional shortness of breath (Acute) Tachycardia (Acute) Hyperlipidemia (Chronic) Chronic fatigue syndrome (Acute) due to Lupus Recurrent UTI (Acute) Medial epicondylitis, left elbow (Acute) Steroid injection: 01/31/2020 Fibromyalgia (Chronic) Mild intermittent asthma (Acute) Vitamin D deficiency (Acute) Vitamin B 12 deficiency (Chronic) Major depressive disorder (Chronic) GERD with esophagitis (Acute) Endometriosis (Chronic) Systemic lupus erythematosus (Chronic) Followed by Dr. Main with [facility] Rheumatology Medical History HTN (hypertension) is monitoring BP with PCP and has increased BP med (Losartan) Serrated adenoma of colon In 2010 Pyloric ulcer In 2019 Surgical History History of colonoscopy (~07/2023) S/P medial meniscus repair of right knee Hx of esophagogastroduodenoscopy (12/07/18) S/P colonoscopy (01/16/18) S/P cholecystectomy (12/11/11) History of arthroscopic knee surgery Family History FAMILY HX Heart disease Mother Endometriosis hyst at 26 Heart disease Depression Hyperlipidemia Hypertension Sister Endometriosis diagnosed by FH and sxs Depression Grandmother SLE (systemic lupus erythematosus) unknown age, but had renal dz Father Heart disease Hyperlipidemia Hypertension Stroke Brother Hyperlipidemia Daughter Asthma Depression Son Asthma Depression Maternal Grandmother Cancer Hypertension Maternal Grandfather Cancer Dementia Stroke Hypertension Hyperlipidemia Paternal Grandmother No problems noted. Paternal Grandfather No problems noted. Social History Smoking/Tobacco Use Status: Never Second Hand Exposure: Yes Smoking risk assessment performed?: Yes Alcohol Intake: current Alcohol Intake frequency: holidays/special occasions only Alcohol type: beer Drug use: Never Substance use type: does not use Counseling given: No Adopted: No Household members: significant other Housing: apartment Number of Children: 2 number of grandchildren: 2 Communication Needs: None Education Level: college Details: Nursing school Do you need help understanding health information?: Never current occupation: Nurse Pets and animals: Yes Pets and animals: cat(s) and dog(s) Sexually active: Yes Do you think of yourself as: straight/heterosexual Current gender identity: female What is your relationship status?: living with partner How often do you talk on the phone with friends or family?: twice per week How often do you get together with friends or relatives?: once per week How often do you attend yazidism or yazdanism services?: decline to answer Do you belong to any clubs or organized social groups?: no Panel score (0-1 are the most socially isolated patients): 2 What type of physical activity do you participate in: walking Duration: < 15 minutes/day Frequency: 3-4 times per week Kayleigh/Druze: Mosque Special kayleigh needs: No Agree to transfusion: Yes Seatbelt use: always Helmet use: Yes Helmet use: always Drive intox or ride w/intox milk tanker driver: No Working smoke detector in home: Yes Carbon monox detector in home: Yes Firearms in home: No Do you feel safe at home: Yes Do you feel safe in your relationship?: Yes Victim of physical abuse: No Victim of emotional abuse: No Victim of sexual abuse: No Would you like helpful sources: No Female Reproductive History Menstrual control method: none Menopause type: natural (2020. amenorrhea till 08/2023-spotting) History History 2 Para 2 Hx # Term Pregnancies 2 Multiple births Hx # Pregnancies Ectopic pregnancies AB induced Hx Number of Living Children 2 AB spontaneous Past Pregnancies Del. Date GA/Weeks # Preg Succ Route Wgt Sex Labor Lgth Anesthesia Location [facility] 10/09/94 42 No Yes vaginal 4535.924 g Female [place] 04/16/99 38 No Yes vaginal 3231.846 g Male [facility]
[2025-02-23] MEDS: Amoxicillin 875/Clav. 125 TAB PO (12:49)
--- NOTE | 2025-02-23 13:02 | DI.RAD_ITS ---
Exam(s) XR HAND LT COMPLETE EXAM: XR HAND LT COMPLETE CLINICAL HISTORY: Dog bite left thumb. TECHNIQUE: 2D digital imaging was performed of the left hand. Three views were obtained. AP, lateral and oblique views were obtained. COMPARISON: There are no priors for comparison. FINDINGS: BONES: No acute fracture is present. No bony destructive lesion is seen. JOINTS: No dislocation present. SOFT TISSUE: Normal. No soft tissue gas or radiopaque foreign body is identified. IMPRESSION: There is no fracture, dislocation or radiopaque foreign body present. DATA REPOSITORY: RADIATION DOSE DELIVERED:
[2025-02-23 13:57] VITALS: BP 132/79; PULSE 72; RESP 16; TEMP 36.8; O2SAT 100
--- NOTE | 2025-02-23 14:44 | NUR.NOTE ---
Faxed animal bite report to the [facility] and spoke with the health officer Nursing Note:
== END 2025-02-23 14:00 | disposition home or self-care (01) ==
PROVIDERS: Emergency Provider Registered Nurse Emergency; PCP Family Medicine
DX: S61.452A Open bite of left hand, initial encounter (principal); W54.0XXA Bitten by dog, initial encounter; Z59.811 Housing instability, housed, with risk of homelessness; Z60.8 Other problems related to social environment
CPT/HCPCS: 99283; 73130

== ENCOUNTER 2025-03-08 13:48 | Outpatient (CLI) | payer OTHER, SELFPAY ==
[2025-03-08 16:30] LABS: Abs Immature Grans 0.01 10^3/uL (0.0-0.06); HCT 40.8 % (36.0-46.0); HGB 13.4 g/dL (11.2-15.7); Immature Grans % 0.2 %; MCH 30.7 pg (27.0-33.0); MCHC 32.8 % (32.0-36.0); MCV 94 fL (80-95); MPV 10.4 fL (8.0-11.0); Platelet Count 299 10^3/uL (130-400); RBC 4.36 10^6/uL (3.93-5.22); RDW 11.5 % (11.7-14.6); RDW-SD 39.4 fL; WBC 5.20 10^3/uL (4.4-10.8)
[2025-03-08 16:45] LABS: Iron 91 ug/dL (50-170); Total Iron Binding Capacity 331 ug/dL (250-425); Transferrin Sat 27 % (15-50)
[2025-03-08 18:34] LABS: ALT 41 U/L (10-49); AST 29 U/L (<34); Albumin 4.1 g/dL (3.2-5.0); Alkaline Phosphatase 93 U/L (46-116); Anion Gap 9.9 mmol/L (3-11); BUN 9 mg/dL (9-23); Bilirubin, Total 0.3 mg/dL (0.2-1.2); CO2 26.1 mmol/L (20.0-31.0); Calcium 8.6 mg/dL (8.3-10.6); Chloride 107 mmol/L (98-107); Glucose 93 mg/dL (74-106); Potassium 3.4 mmol/L (3.5-5.1); Sodium 143 mmol/L (136-145); Total Protein 7.2 g/dL (5.7-8.2)
[2025-03-08 18:36] LABS: Ferritin 53 ng/mL (7-271); Vitamin D 25 Total 74 ng/mL (30-100)
[2025-03-08 18:37] LABS: Vitamin B12 427 pg/mL (211-911)
== END 2025-03-08 13:49 | disposition home or self-care (01) ==
PROVIDERS: PCP Family Medicine; Visit Provider Family Medicine
DX: M32.19 Other organ or system involvement in systemic lupus erythematosus (principal); D50.8 Other iron deficiency anemias
CPT/HCPCS: 36415; 80053; 82306; 82607; 82728; 83540; 83550; 85025

== ENCOUNTER 2025-03-30 16:48 | Outpatient (REF) | payer OTHER, SELFPAY ==
[2025-03-30 19:40] LABS: Glucose Negative (Negative)
[2025-03-30 19:52] LABS: RBC Negative HPF (0-2)
== END 2025-03-30 16:49 | disposition home or self-care (01) ==
LOC: LBN 16:48
PROVIDERS: PCP Family Medicine; Visit Provider Nurse Practitioner Gerontology
DX: N39.0 Urinary tract infection, site not specified (principal)
CPT/HCPCS: 87077; 81003; 81015; 87086; 87186